=== PATIENT | female | born 1940 | race Caucasian/White ===

== ENCOUNTER → 2016-08-02 | Outpatient (CLI) | payer OTHER, MEDICAID ==
--- NOTE | 2016-08-02 15:24 | MA ---
Bilateral Screening Digital Mammograms With iCAD Clinical Indications: Routine screening mammograms. Technique: Standard digital cephalocaudal and mediolateral oblique projections were obtained. This examination was processed by the iCAD computer-aided detection system. Comparison: 2014, 2016. Breast density: Type C. Findings: Computer-aided detection was reviewed. No suspicious cluster of microcalcifications, new d ominant densities or architectural distortion. Benign secretory calcifications throughout both breast s. No suspicious microcalcifications. Impression: 1. ACR BI-RADS 2: Benign findings. 2. No mammographic evidence of malignancy. Recommendation: 1. If physical exam is negative, recommend annual mammograms with next mammogram July 2017. 2. Dense mammographic pattern limits the sensitivity of mammography in this patient. If there is a cl inically palpable abnormality, recommend additional imaging with ultrasound, if clinically indicated. [facility] will send a result letter to the patient. Negative mammography should not preclude additional workup of a clinically suspicious finding. The patient's information is entered into a reminder system with a target due date for her next mammo gram.
== END ==
LOC: FIMAGING 13:28
DX: Z12.31 Encounter for screening mammogram for malignant neoplasm of breast (principal)
CPT/HCPCS: G0202

== ENCOUNTER 2016-08-24 04:23 | Inpatient (IN) | payer OTHER, MEDICAID ==
--- NOTE | 2016-08-24 04:29 | EDPHY ---
H & P HPI/ROS: HPI CHIEF COMPLAINT: Generalized weakness, nausea, back pain, lightheadedness, muscle aches, joint pain, shortness of breath HISTORY OF PRESENT ILLNESS: The patient very pleasant 76-year-old female she presents emergency room by EMS for multitude of complaints. She tells me over the past 3 days she has been sick. She tells me that she has been feeling shortness of breath for the last 3 days with a nonproductive cough, she has had nausea, generalized weakness, back and neck pain she specifically complains of low back pain as well as high back pain. No trauma. She also complains of joint pain and muscle aches. She states she feels "like a wet noodle" she denies fever, diarrhea or active vomiting. Denies chest pain. Denies pleuritic pain. Past Medical History: Pulmonary hypertension, wears 3 L of oxygen at night, asthma, hypertension, thyroid disease Past Surgical History: Cholecystectomy, bilateral knee surgeries Social History: Denies daily use of drugs alcohol tobacco products Family History: Noncontributory ROS REVIEW OF SYSTEMS: A comprehensive 10 point review of systems is otherwise negative aside from elements mentioned in the history of present illness. Exam Constitutional appears well nontoxic, triage nursing summary reviewed, vital signs reviewed, awake/alert. Eyes normal conjunctivae and sclera, EOMI, PERRLA. HENT normal inspection, atraumatic, moist mucus membranes, no epistaxis, neck supple/ no meningismus, no raccoon eyes. Respiratory clear to auscultation bilaterally, normal breath sounds, no respiratory distress, no wheezing. Cardiovascular rate normal, regular rhythm, no murmur, no edema, distal pulses normal. Gastrointestinal soft, non-tender, no rebound, no guarding, normal bowel sounds, no distension, no pulsatile mass. Genitourinary no CVA tenderness. Musculoskeletal no midline vertebral tenderness, full range of motion, no calf swelling, no tenderness of extremities, no meningismus, good pulses, neurovascularly intact. Left lower extremity: 5 cm laceration that is over 24 hours old. No signs of infection. (from fall >24 hours a go) Skin pink, warm, & dry, no rash, skin atraumatic. Neurologic awake, alert and oriented x 3, AAOx3, moves all 4 extremities equally, motor intact, sensory intact, CN II-XII intact, normal cerebellar, normal vision, normal speech. Psychiatric normal mood/affect. Heme/Lymph/Immune no lymphadenopathy. Differential Diagnosis: Includes but is not limited to in a particular order infection, dehydration, pneumonia, pulmonary hypertension, hypoxia, UTI, electrolyte abnormality, influenza, doubt acute coronary syndrome Medical Decision Making: Patient had an IV established be placed on full case monitor will obtain EKG, chest x-ray blood work including electrolytes, urinalysis and influenza will hydrate her and re-evaluate her. I have also ordered her 4 mg IV morphine for pain of her lower back and upper back as well as 4 mg IV Zofran for nausea. Re-evaluation: EKG interpretation by me on record in [facility] system. Impression time of EKG 4:56 a.m. sinus rhythm rate of 50. No acute ischemic changes appreciated specifically no ST elevation, ST depression significant T-wave abnormalities. CT scan of the angiogram chest with IV contrast. The results of the study are this shows multiple pulmonary embolism subsegmental right lower lobe, right middle lobe and lingula. The study was read by Dr. Garcia I viewed the images myself on the PACS system. 0649: Re-evaluation at this time she is resting comfortably. She is on supplemental oxygen is noted her room air saturation was 86%. CT scan does show multiple pulmonary emboli for this should be admitted I did give her 1 milligram/kilogram of Lovenox subcu. I have updated the patient. This patient is hemodynamically stable no acute distress. Patient's D-dimer noted to be elevated at 5.4. CT scan shows multiple pulmonary emboli. She is hemodynamically stable she is requiring supplemental oxygen she will be admitted to the hospital for pulmonary emboli. [id number]: Spoke with Hospalist service. Dr. Landin Agrees to Admit. Source: Patient, EMS - Personal History Tetanus Vaccine Date: within last 10 years - Medical/Surgical History Hx Asthma: Yes Hx Chronic Respiratory Disease: No Hx Diabetes: No Hx Cardiac Disease: No Hx Renal Disease: No Hx Cirrhosis: No Hx Alcoholism: No Hx HIV/AIDS: No Hx Splenectomy or Spleen Trauma: No Other PMH: pancreatitis, polyarteritis nodosa (IN REMISSION SINCE 2002), HTN, asthma, kidney stones, hysterectomy, cholecystectomy, appendectomy - Social History Smoking Status: Former smoker Constitutional: Initial Vital Signs Temperature (C) 36.5 C 08/24/16 04:25 Heart Rate 56 L 08/24/16 04:25 Respiratory Rate 16 08/24/16 04:25 Blood Pressure 123/59 H 08/24/16 04:25 O2 Sat (%) 86 L 08/24/16 04:25 O2 Delivery Mode Room Air O2 (L/minute) 2 Allergies/Adverse Reactions: bupivacaine HCl [From Marcaine] Allergy (Severe, Verified 08/24/16 04:51) ASTHMA TYPE SYMPTOMS Sulfa (Sulfonamide Antibiotics) Allergy (Severe, Verified 08/24/16 04:51) ASTHMA SYMPTOMS tramadol HCl [From Ultram] Allergy (Severe, Verified 08/24/16 04:51) ASTHMA TYPE SYMPTOMS Penicillins Allergy (Intermediate, Verified 08/24/16 04:51) RASH, ASTHMA TYPE REACTION propoxyphene HCl [From Darvon] Allergy (Intermediate, Verified 08/24/16 04:51) Vomiting Home Medications: Medication Instructions Recorded Gabapentin [Neurontin] 800 mg PO DAILY 06/13/14 Levothyroxine [Synthroid 112 mcg 112 mcg PO DAILY06 06/13/14 (*)] Lisinopril [Zestril 40 mg (*)] 40 mg PO DAILY 06/13/14 Pregabalin [Lyrica] 150 mg PO HS 06/13/14 amLODIPine BESYLATE [Norvasc 5 mg 5 mg PO HS 06/13/14 (*)] Ondansetron Odt [Zofran Odt 4 mg 4 mg PO Q4 PRN #20 tab 06/18/14 (*)] clonIDINE [Catapres (*)] 0.2 mg PO BID #0 tab 06/18/14 QUEtiapine FUMARATE [Seroquel 100 100 mg PO HS 06/20/14 mg (*)] Medical Decision Making - Data Points Laboratory Results: Laboratory Results 08/24/16 04:20 08/24/16 04:20 08/24/16 08/24/16 08/24/16 06:10 05:45 04:20 WBC RBC Hgb Hct MCV MCH MCHC RDW Plt Count MPV Neut % (Auto) Lymph % (Auto) Atlantic % (Auto) Eos % (Auto) Baso % (Auto) Nucleat RBC Rel Count Absolute Neuts (auto) Absolute Lymphs (auto) Absolute Monos (auto) Absolute Eos (auto) Absolute Basos (auto) Absolute Nucleated RBC Immature Gran % Immature Gran # PT INR APTT D-Dimer Sodium 139 mEq/L mEq/L (134-144) Potassium 4.5 mEq/L mEq/L (3.5-5.2) Chloride 103 mEq/L mEq/L (97-110) Carbon Dioxide 26 mEq/l mEq/l (22-31) Anion Gap 10 mEq/L mEq/L (8-16) BUN 20 mg/dL mg/dL (7-23) Creatinine 1.0 mg/dL mg/dL (0.6-1.0) Estimated GFR 54 Glucose 108 mg/dL H mg/dL (70-100) Calcium 9.5 mg/dL mg/dL (8.5-10.4) Magnesium 2.1 mg/dL mg/dL (1.6-2.3) Total Bilirubin 1.2 mg/dL mg/dL (0.1-1.4) Conjugated Bilirubin 0.6 mg/dL H mg/dL (0.0-0.5) Unconjugated Bilirubin 0.6 mg/dL mg/dL (0.0-1.1) AST 31 IU/L IU/L (14-46) ALT 30 IU/L IU/L (9-52) Alkaline Phosphatase 98 IU/L IU/L (38-126) Creatine Kinase 137 IU/L IU/L (0-156) CK-MB (CK-2) Fraction 2.95 ng/mL ng/mL (0-3.19) Troponin I < 0.012 ng/mL ng/mL (0-0.034) NT-Pro-B Natriuret Pep 643 pg/mL H pg/mL (0-450) Total Protein 7.0 g/dL g/dL (6.3-8.2) Albumin 4.0 g/dL g/dL (3.5-5.0) Lipase 26.0 IU/L IU/L (23-300) Urine Color PALE YELLOW Urine Appearance CLEAR Urine pH 5.0 (5.0-7.5) Ur Specific [place] 1.003 (1.002-1.030) Urine Protein NEGATIVE (NEGATIVE) Urine Ketones NEGATIVE (NEGATIVE) Urine Blood NEGATIVE (NEGATIVE) Urine Nitrate NEGATIVE (NEGATIVE) Urine Bilirubin NEGATIVE (NEGATIVE) Urine Urobilinogen NEGATIVE EU EU (0.2-1.0) Ur Leukocyte Esterase NEGATIVE (NEGATIVE) Ur Culture Indicated? NOT INDICATED (NI) Urine Glucose NEGATIVE (NEGATIVE) Influenza Typ A,B (DFA) NEGATIVE FOR FLU (NEGATIVE) 08/24/16 08/24/16 04:20 04:20 WBC 7.45 10^3/uL 10^3/uL (3.80-9.50) RBC 4.47 10^6/uL 10^6/uL (4.18-5.33) Hgb 14.0 g/dL g/dL (12.6-16.3) Hct 41.4 % % (38.0-47.0) MCV 92.6 fL fL (81.5-99.8) MCH 31.3 pg pg (27.9-34.1) MCHC 33.8 g/dL g/dL (32.4-36.7) RDW 12.8 % % (11.5-15.2) Plt Count 184 10^3/uL 10^3/uL (150-400) MPV 11.0 fL fL (8.7-11.7) Neut % (Auto) 59.0 % % (39.3-74.2) Lymph % (Auto) 31.7 % % (15.0-45.0) Atlantic % (Auto) 8.2 % % (4.5-13.0) Eos % (Auto) 0.3 % L % (0.6-7.6) Baso % (Auto) 0.3 % % (0.3-1.7) Nucleat RBC Rel Count 0.0 % % (0.0-0.2) Absolute Neuts (auto) 4.40 10^3/uL 10^3/uL (1.70-6.50) Absolute Lymphs (auto) 2.36 10^3/uL 10^3/uL (1.00-3.00) Absolute Monos (auto) 0.61 10^3/uL 10^3/uL (0.30-0.80) Absolute Eos (auto) 0.02 10^3/uL L 10^3/uL (0.03-0.40) Absolute Basos (auto) 0.02 10^3/uL 10^3/uL (0.02-0.10) Absolute Nucleated RBC 0.00 10^3/uL 10^3/uL (0-0.01) Immature Gran % 0.5 % % (0.0-1.1) Immature Gran # 0.04 10^3/uL 10^3/uL (0.00-0.10) PT 16.1 SEC H SEC (12.0-15.0) INR 1.29 H (0.83-1.16) APTT 40.2 SEC H SEC (23.0-38.0) D-Dimer 5.44 ug/mLFEU H ug/mLFEU (0.00-0.50) Sodium Potassium Chloride Carbon Dioxide Anion Gap BUN Creatinine Estimated GFR Glucose Calcium Magnesium Total Bilirubin Conjugated Bilirubin Unconjugated Bilirubin AST ALT Alkaline Phosphatase Creatine Kinase CK-MB (CK-2) Fraction Troponin I NT-Pro-B Natriuret Pep Total Protein Albumin Lipase Urine Color Urine Appearance Urine pH Ur Specific [place] Urine Protein Urine Ketones Urine Blood Urine Nitrate Urine Bilirubin Urine Urobilinogen Ur Leukocyte Esterase Ur Culture Indicated? Urine Glucose Influenza Typ A,B (DFA) Medications Given: Discontinued Medications Hydromorphone HCl (Dilaudid) 0.5 mg IVP EDNOW ONE Stop: 08/24/16 07:10 Last Admin: 08/24/16 07:10 Dose: 0.5 mg Sodium Chloride (Ns) 1,000 mls @ 0 mls/hr IV ONCE ONE PRN Reason: Wide Open Stop: 08/24/16 04:37 Last Admin: 08/24/16 04:55 Dose: 1,000 mls Morphine Sulfate (Morphine) 4 mg IVP EDNOW ONE Stop: 08/24/16 04:37 Last Admin: 08/24/16 04:56 Dose: 4 mg Ondansetron HCl (Zofran) 4 mg IVP EDNOW ONE Stop: 08/24/16 04:37 Last Admin: 08/24/16 04:55 Dose: 4 mg Tetracaine/Epinephrine/Lidocaine (Lets Soln Topical) 1 ea TP EDNOW ONE Stop: 08/24/16 05:16 Last Admin: 08/24/16 05:24 Dose: 1 ea Departure - Departure Disposition: [facility] Clinical Impression: Hypoxia Pulmonary emboli Qualifiers: Pulmonary embolism type: other Chronicity: acute Acute cor pulmonale presence: without acute cor pulmonale Qualified Code(s): I26.99 - Other pulmonary embolism without acute cor pulmonale Condition: Fair Referrals: Garett Watkins MD [Medical Doctor] - As per Instructions
[2016-08-24] MEDS ORDERED: NS 1,000 ML IV ONE (04:36)
[2016-08-24] MEDS ORDERED: ONDANSETRON 4 MG/2 ML VIAL IVP ONE (04:36)
[2016-08-24 04:48] LABS: % IMMATURE GRANULYOCYTES 0.5 % (0.0-1.1); ABSOLUTE IMMATURE GRANULOCYTES 0.04 10^3/uL (0.00-0.10); ADD DIFF? NO; ADD MORPH? NO; ADD SCAN? NO; ATYPICAL LYMPHOCYTE FLAG 0 (0-99); FRAGMENT RBC FLAG 0 (0-99); HEMATOCRIT 41.4 % (38.0-47.0); LEFT SHIFT FLG 0 (0-99); LIPEMIA HEMOLYSIS FLAG 90 (0-99); MEAN CELL HEMOGLOBIN 31.3 pg (27.9-34.1); MEAN CELL HEMOGLOBIN CONCENTR. 33.8 g/dL (32.4-36.7); MEAN CELL VOLUME 92.6 fL (81.5-99.8); PLATELET CLUMPS FLAG 0 (0-99); PLATELET COUNT 184 10^3/uL (150-400); RED BLOOD CELL COUNT 4.47 10^6/uL (4.18-5.33); RED CELL DISTRIBUTION WIDTH 12.8 % (11.5-15.2)
[2016-08-24 04:51] LABS: ALANINE AMINOTRANSFERASE 30 IU/L (9-52); ALKALINE PHOSPHATASE 98 IU/L (38-126); ANION GAP 10 mEq/L (8-16); ASPARTATE AMINOTRANSFERASE 31 IU/L (14-46); BILIRUBIN,TOTAL 1.2 mg/dL (0.1-1.4); BILIRUBIN-CONJUGATED 0.6 mg/dL (0.0-0.5); BILIRUBIN-UNCONJUGATED 0.6 mg/dL (0.0-1.1); CALCIUM 9.5 mg/dL (8.5-10.4); CARBON DIOXIDE 26 mEq/l (22-31); CHLORIDE 103 mEq/L (97-110); GLOMERULAR FILTRATION RATE 54; GLUCOSE 108 mg/dL (70-100); MAGNESIUM 2.1 mg/dL (1.6-2.3); POTASSIUM 4.5 mEq/L (3.5-5.2); SODIUM 139 mEq/L (134-144)
--- NOTE | 2016-08-24 04:58 | CPEKG ---
Heart Rate: 50 RR Interval: 1200 P-R Interval: 168 QRSD Interval: 86 QT Interval: 448 QTC Interval: 409 P Macon: 16 QRS Macon: -7 T Wave Macon: 13 EKG Severity - NORMAL ECG - EKG Impression: SINUS RHYTHM Electronically Signed By: Fortino Addison 25-Aug-2016 12:15:55
[2016-08-24 05:03] LABS: CREATINE KINASE-MB FRACTION 2.95 ng/mL (0-3.19); TROPONIN I < 0.012 ng/mL (0-0.034)
[2016-08-24 05:06] LABS: INR 1.29 (0.83-1.16); PROTIME(PATIENT) 16.1 SEC (12.0-15.0)
[2016-08-24 05:07] LABS: APTT 40.2 SEC (23.0-38.0)
[2016-08-24] MEDS ORDERED: LETS SOLN TOPICAL 1 EA SYR TP ONE ×2 (05:07→05:15)
[2016-08-24] MEDS ORDERED: IOPAMIDOL (ISOVUE-370) 150 ML BTL IV ONE (06:11)
[2016-08-24 06:14] LABS: COLOR PALE YELLOW; LEUKOCYTE ESTERASE,URINE NEGATIVE (NEGATIVE); NITRITE,URINE NEGATIVE (NEGATIVE)
[2016-08-24] MEDS ORDERED: ENOXAPARIN 80 MG/0.8 ML SYR SC ONE ×2 (06:48→07:30)
[2016-08-24] MEDS ORDERED: HYDROmorphONE/DILAUDID 1 MG/ML SYR ONE (07:04)
[2016-08-24] MEDS ORDERED: HYDROmorphONE/DILAUDID 1 MG/ML SYR IVP ONE (07:09)
[2016-08-24] MEDS ORDERED: LACTULOSE 20 GM/30 ML UDCUP PO PRN (07:55)
[2016-08-24] MEDS ORDERED: POLYETHYLENE GLYCOL 3350 17 GM PKT PO PRN (07:55)
[2016-08-24] MEDS ORDERED: ONDANSETRON 4 MG/2 ML VIAL IVP PRN (07:55)
[2016-08-24] MEDS ORDERED: MAGNESIUM HYDROXIDE 30 ML UDCUP PO PRN (07:55)
[2016-08-24] MEDS ORDERED: BISACODYL 10 MG SUPP PR PRN (07:55)
[2016-08-24] MEDS ORDERED: oxyCODONE IR 5 MG TAB ONE (08:27)
[2016-08-24] MEDS: oxyCODONE IR 5 MG TAB PO PRN ×3 (08:29→21:28)
--- NOTE | 2016-08-24 08:46 | GHP ---
[f rep st] HISTORY AND PHYSICAL DATE OF ADMISSION: 08/24/2016 CHIEF COMPLAINT: Shortness of breath in the setting of neck and low back pain. HPI: This is a 76-year-old female, who presented to the emergency department with shortness of capri th. The patient states her shortness of breath started about 3 days ago. She denies any chest pain . She has been having what she describes as worsening pain in her low neck and low back. She denies any new numbness or weakness in her arms or legs. She has felt very dizzy. She had some nausea an d 1 episode of emesis yesterday. She denies any recent prolonged travel. She has no history or no family history of blood clots. Over the past month the patient states that she has lost 8 pounds loss. She says that she has no ap petite. When she tries to the eat, she feels like food gets stuck. She has had some chills. The patient tells me that she has had some shortness of breath over the past few weeks, but it has r eally worsened over the past few days. She was seen at [facility], where she was preliminarily diagnosed with pulmonary hypertension. She was scheduled to follow up with them for echocardiogram and further testing, which she has not done since she has felt too sick to proceed with further anny ting. PAST MEDICAL HISTORY: 1. Fibromyalgia. 2. Hypothyroidism. 3. Hypertension. 4. GERD status post Angelica fundoplication. 5. Obesity. 6. Osteoarthritis. 7. Peripheral neuropathy. 8. History of polyarteritis nodosa, manifesting hepatic artery aneurysm in 1993. 9. Obstructive sleep apnea. 10. Anxiety. 11. Hospitalization in June of 2014, for possible pancreatitis versus pancreatic duct stricture s status post EUS by Dr. Abdul. PAST SURGICAL HISTORY: Cholecystectomy, right knee replacement, hysterectomy, carpal tunnel release , cataract surgery, right hip replacement, small-bowel obstruction, Angelica fundoplication, and endos copic ultrasound with biopsy. HOME MEDICATIONS: Reviewed. Refer to [employer] for details. ALLERGIES: Reviewed. Refer to [employer] for details. SOCIAL HISTORY: The patient lives at [facility]. She is a former smoker but qu it many years ago. She denies any alcohol or illicit drug use. FAMILY HISTORY: Reviewed and noncontributory. REVIEW OF SYSTEMS: Comprehensive 10-point review of systems was done and is negative except for as mentioned in the HPI. PHYSICAL EXAM: VITAL SIGNS: Blood pressure 144/74, pulse 56, respiratory rate 18, O2 saturation 95 % on room air. GENERAL: No acute distress. HEART: S1, S2. LUNGS: Clear. ABDOMEN: Soft. Nont jimmy, nondistended. No guarding or rebound tenderness. No hepatosplenomegaly. EXTREMITIES: No c lubbing or cyanosis. NEURO: Face is symmetric. Cranial nerves 2-12 grossly intact. 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 Muscle strength 5/5 bilateral flexio n, extension at the hip and at the foot. SKIN: Clear. No rashes. HEAD: Normocephalic, atraumati c. EYES: PERRLA. Sclerae anicteric. MOUTH: Moist mucous membranes. NECK: Supple. No lymphade nopathy. DIAGNOSTIC DATA: WBC 7.4, hemoglobin 14, hematocrit 41.4, platelets 184. D-dimer is 5.44. INR 1.2 9, PT 16.1, PTT 40.2. Sodium 139, potassium 4.5, chloride 103, CO2 26, BUN 20, creatinine 1, glucos e 108. LFTs unremarkable. BNP 643. UA unremarkable. Influenza A and B negative. CT angio of the chest, which I visualized and personally interpreted, shows multiple pulmonary embol ism, subsegmental right lower lobe and right middle lobe and lingula. Final read is pending. EKG shows sinus rhythm, rate 50 beats per minute, no acute ischemic changes. ASSESSMENT: This is a 76-year-old female presenting with multiple complaints including shortness of breath, neck and low back pain, as well as dizziness found to have: 1. Acute pulmonary embolism with multiple subsegmental right lower lobe clots as well as right midd le lobe and lingula clots. Plan: The patient will be admitted to the hospital where she will be st arted on therapeutic treatment with low molecular weight heparin. We will defer starting oral antic oagulant at this time pending further workup. See below. At this time, the precipitating factor fo r the PE is unknown. I do have a high suspicion for malignancy. 2. 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 Plan: I discussed case Dr. Ramakrishna Barr from [facility]. He will see the patient in consultation and advised on further workup. 3. History of fibromyalgia with acute on chronic neck and low back pain. Plan: The patient will be continued on her usual doses of oxycodone. If her pain worsens, would consider further imaging to evaluate for other causes of her pain. 4. History of hypertension. Plan: Continue home medications. The patient requests to be full code status. /[id number]/MODL
[2016-08-24] MEDS: SENNOSIDES/DOCUSATE SODIUM TAB PO SCH ×2 (09:54→19:53)
[2016-08-24] MEDS ORDERED: NON-FORMULARY NEW DRUG (Zolpidem Tartrate [Ambien 10 Mg] 10 MG) PO PRN (10:32)
[2016-08-24] MEDS ORDERED: oxyCODONE IR 5 MG TAB PO PRN (10:34)
[2016-08-24] MEDS ORDERED: ZOLPIDEM TARTRATE 5 MG TAB PO PRN (10:39)
--- NOTE | 2016-08-24 10:46 | GCON ---
[f rep st] CONSULTATION REFERRING PHYSICIAN: Ted Landin DO REASON FOR CONSULTATION: Dysphagia. CHIEF COMPLAINT: Fatigue and shortness of breath. HISTORY OF PRESENT ILLNESS: Briefly, the patient is a 76-year-old female who was admitted to the [facility] on 08/24/2016 for the evaluation of shortness of breath, chest pain, back pain, and neck pain . She reports she was in her usual state of health until a few days ago. She began having worsenin g fatigue associated with pain symptoms in the lower neck and back. She describes numbness and ting ling as well. She felt dizzy. She had some nausea and 1 episode of nonbloody emesis. As her sympt oms were gradually worsening, she presented to the emergency room for evaluation. In the emergency room, evaluation revealed a pulmonary embolism, and she has been admitted for the management of her newly diagnosed pulmonary clots. She reports that over the last month she believes she has lost approximately 8 pounds. She has a de creased appetite. In addition, she reports that while she is eating, she will have difficulty with solid food dysphagia. She has had this symptom on and off for a number of years. She has undergone 2 prior upper endoscopies over approximately the last 24-26 months. One was done for the symptom o f dysphagia, the other was done in conjunction with an endoscopic ultrasound to evaluate for pancrea titis. She has had biopsy of the esophagus as well as the GE junction and empiric dilation of the e sophagus. She is uncertain if the dilation was of any benefit. She has not had any sinister etiolo gy discovered for dysphagia on her biopsy results. She reports that if she chews her food well, eat s slowly, she will have reasonable success with swallowing. She is not certain that her decreased p .o. intake is why she is losing weight. She reports she has generally had the decreased appetite ov erall. She also reports she has been undergoing a workup from [facility] ([place], [place]) for a diagnosis of pulmonary hypertension and as yet to complete that workup. PAST MEDICAL HISTORY: Includes fibromyalgia, hypothyroidism, hypertension, heartburn, status post N issen fundoplication, obesity, osteoarthritis, peripheral neuropathy, obstructive sleep apnea, anxie ty, and a prior history of pancreatitis, status post EUS. ALLERGIES: Include bupivacaine, sulfa, tramadol, penicillin, and propoxyphene. CURRENT MEDICINES: Tylenol, bisacodyl, Lovenox, lactulose, milk of magnesia, Zofran, oxycodone, Geoff aLAX, and Senokot. HOME MEDICINES: Include oxycodone, Norvasc, Zantac, Ambien, meloxicam, Seroquel, Lyrica, Catapres, Zofran, Zestril, Synthroid, and Neurontin. SOCIAL HISTORY: She lives at [facility]. She is a former smoker but quit many years ago. She denies any drug use or alcohol use. FAMILY HISTORY: Negative for colon cancer or colon polyps. REVIEW OF SYSTEMS: A comprehensive 10-point review was undertaken with the patient and is negative, except for those details described in the history of present illness. The history of present illne ss contains the pertinent positives and negatives related to her review of systems. PHYSICAL EXAMINATION: GENERAL: This is an obese, well-developed female, in no apparent distress. HEENT: Pupils are equal, round, and reactive to light and accommodation. Sclerae are nonicteric. Oropharynx is clear. NECK: Supple without lymphadenopathy. HEART: Regular without murmur. ABDOM EN: Soft, nontender. Normoactive bowel sounds. There is no rebound or guarding. EXTREMITIES: No clubbing or cyanosis. NEURO: Grossly nonfocal. PSYCH: Stable mood and affect. SKIN: Warm and dry without lesions. LABORATORY TESTING: Reveals a white count of 7.45, hemoglobin of 14, hematocrit of 41.4, platelet c ount of 184. INR of 1.29. Sodium of 139, potassium of 4.5, chloride of 103, bicarb of 26, BUN of 2 0, creatinine of 1.0. CTA of the chest and thorax reveals mild volume subsegmental pulmonary emboli involving the right mi ddle lobe, right lower lobe, and lingula. There is also narrowing of the pulmonary outflow tract wi th aneurysmal dilation of the pulmonary trunk. In April 2016, I note she also underwent CT angiog estrella with no pulmonary emboli identified. In December 2015, she had CAT scan of the abdomen and pelvis to evaluate abdominal symptoms; no kidney stones were identified. In 2014, pathology sampling done of the upper intestinal tract was negative. In 2013, pathology sampling of the GE junction and eso phagus was also negative. IMPRESSION AND RECOMMENDATIONS: The patient is admitted to the hospital for management of pulmonary embolism. She describes some increasing solid food dysphagia over the last many months. She has h ad chronic solid food dysphagia and has undergone some prior workup, most recently in early 2014. M y suspicion for sinister etiology for dysphagia, such as malignancy is low, based on her recent uppe r endoscopic evaluations. She may have a motility disturbance or a chronic partial obstruction rela trevor to her fundoplication. At this time, I recommend she undergo a barium swallow to evaluate for e tiologies of dysphagia. This noninvasive exam will be safer in the setting of her obesity, pulmonar y hypertension, pulmonary outflow tract obstruction, and recently diagnosed pulmonary embolism. I d o not think that the risks of sedation and upper endoscopy in the setting of her acute presentation are warranted, given her prior GI workup. Barium esophagram will be safer and useful to rule out th e most sinister etiologies. Ultimately, we can arrange follow up in GI clinic to re-evaluate her dy sphagia symptoms. Meanwhile, the patient should remain on a proton pump inhibitor. Pending the res ults of her upper gastrointestinal series, will consider diet advancement. /[id number]/MODL
[2016-08-24] MEDS: LISINOPRIL 40 MG TAB PO SCH (13:53)
[2016-08-24] MEDS: amLODIPine BESYLATE 5 MG TAB PO SCH (19:53)
[2016-08-24] MEDS: FAMOTIDINE 20 MG TAB PO SCH (19:53)
[2016-08-24] MEDS: PREGABALIN 100 MG CAP PO SCH (19:53)
[2016-08-24] MEDS: QUEtiapine FUMARATE 100 MG TAB PO SCH (19:54)
[2016-08-24] MEDS: ENOXAPARIN 80 MG/0.8 ML SYR SC SCH (19:54)
[2016-08-24] MEDS ORDERED: NON-FORMULARY NEW DRUG (Meloxicam [Mobic 7.5 Mg] 7.5 MG) PO SCH (21:00)
[2016-08-24] MEDS ORDERED: NON-FORMULARY NEW DRUG (Pregabalin [Lyrica] 200 MG) PO SCH (21:00)
[2016-08-24] MEDS ORDERED: MELOXICAM 7.5 MG PO SCH (21:00)
[2016-08-24] MEDS ORDERED: NON-FORMULARY NEW DRUG (Ranitidine Hcl [Zantac] 150 MG) PO SCH (21:00)
[2016-08-25 05:10] LABS: % IMMATURE GRANULYOCYTES 0.5 % (0.0-1.1); ABSOLUTE IMMATURE GRANULOCYTES 0.03 10^3/uL (0.00-0.10); ADD DIFF? NO; ADD MORPH? NO; ADD SCAN? NO; ATYPICAL LYMPHOCYTE FLAG 0 (0-99); FRAGMENT RBC FLAG 0 (0-99); HEMATOCRIT 39.6 % (38.0-47.0); HEMOGLOBIN 13.4 g/dL (12.6-16.3); LEFT SHIFT FLG 0 (0-99); LIPEMIA HEMOLYSIS FLAG 90 (0-99); MEAN CELL HEMOGLOBIN 32.3 pg (27.9-34.1); MEAN CELL HEMOGLOBIN CONCENTR. 33.8 g/dL (32.4-36.7); MEAN CELL VOLUME 95.4 fL (81.5-99.8); MEAN PLATELET VOLUME 11.6 fL (8.7-11.7); PLATELET CLUMPS FLAG 0 (0-99); PLATELET COUNT 160 10^3/uL (150-400); RED BLOOD CELL COUNT 4.15 10^6/uL (4.18-5.33); RED CELL DISTRIBUTION WIDTH 12.8 % (11.5-15.2)
[2016-08-25 05:24] LABS: ANION GAP 6 mEq/L (8-16); CALCIUM 8.7 mg/dL (8.5-10.4); CARBON DIOXIDE 26 mEq/l (22-31); CHLORIDE 107 mEq/L (97-110); CREATININE 0.8 mg/dL (0.6-1.0); GLOMERULAR FILTRATION RATE > 60; GLUCOSE 82 mg/dL (70-100); POTASSIUM 4.6 mEq/L (3.5-5.2); SODIUM 139 mEq/L (134-144)
[2016-08-25] MEDS: LEVOTHYROXINE 112 MCG TAB PO SCH (06:17)
[2016-08-25] MEDS: oxyCODONE IR 5 MG TAB PO PRN ×4 (06:20→20:34)
[2016-08-25] MEDS ORDERED: NON-FORMULARY NEW DRUG (Gabapentin [Neurontin] 800 MG) PO SCH (09:00)
[2016-08-25] MEDS: FAMOTIDINE 20 MG TAB PO SCH ×2 (09:55→20:21)
[2016-08-25] MEDS: GABAPENTIN 400 MG CAP PO SCH (09:55)
[2016-08-25] MEDS: LISINOPRIL 40 MG TAB PO SCH (09:55)
[2016-08-25] MEDS: SENNOSIDES/DOCUSATE SODIUM TAB PO SCH (09:58)
--- NOTE | 2016-08-25 09:58 | SOAPPROG ---
SOAP Progress Note Assessment/Plan: Assessment: 1. dysphagia - pt not interested in dysphagia w/u at this time - she was able to tolerate regular dinner last evening - she has had 2 EGDs in last ~24months, so work-up is not urgent as likelihood of malignancy/infection/etc is low Plan: 1. dysphagia - will defer w/u to outpt - ok to advance diet - recommend PPI QD, if not already doing so - will sign off, call with questions 08/25/16 09:55 Subjective: CC: upset about barium swallow. she does not want to have to stand up for the exam or drink the barium S: tolerated dinner last night with minimal or no dysphagia no chest pain no sob no cough no vomiting no nausea Objective: Vital Signs Temp Pulse Resp BP Pulse Ox 36.5 C 51 L 17 95/56 L 95 08/25/16 08:00 08/25/16 08:00 08/25/16 08:00 08/25/16 08:00 08/25/16 08:00 Laboratory Results 08/25/16 03:36 08/25/16 03:36 08/24/16 08/25/16 08/26/16 05:59 05:59 05:59 Intake Total 1400 Balance 1400 PT 16.1 SEC (12.0-15.0) H 08/24/16 04:20 INR 1.29 (0.83-1.16) H 08/24/16 04:20 Physical Exam - Physical Exam General Appearance: WD/WN, alert EENT: PERRL/EOMI Neck: full range of motion Respiratory: chest non-tender Cardiac/Chest: normal peripheral pulses Abdomen: normal bowel sounds Skin: normal color Extremities: normal range of motion ICD10 Worksheet Patient Problems: Problems Problem Status Onset Hypoxia Acute Pulmonary emboli Acute Pancreatitis Acute
[2016-08-25] MEDS: ENOXAPARIN 80 MG/0.8 ML SYR SC SCH ×2 (09:59→20:21)
[2016-08-25] MEDS ORDERED: NS 500 ML IV ONE (12:21)
[2016-08-25] MEDS ORDERED: NS 1,000 ML IV SCH (12:30)
--- NOTE | 2016-08-25 13:43 | ECHO ---
[id number] + + [address] : : [place] [address] : : [phone] + + Adult Echocardiographic Report + -------+ :Name: SCOTT BRIAN LStudy Date: 08/25/2016 12:07 PM : : Hospital Admission Number: [id number] Locati on: 202: :: 1940 Gender: Female Height: 64 in : :Age: 76 yrs Race: WH Weight: 184 lb : :Reason For Study: Eval Pulmonic Valve and right heart : : BSA: 1.9 meter s2 : :History: Multiple pulmonary embolisms. Pumonary Stenosis by CT : + -------+ MMode/2D Measurements \T\ Calculations IVSd: 0.98 cm LVIDd: 4.6 cm FS: 34.1 % Ao root diam: 2.5 cm LVPWd: 0.98 cm LVIDs: 3.0 cm EDV(Teich): 97.7 ml LA dimension: 1.7 cm ESV(Teich): 36.1 ml EF(Teich): 63.0 % LVOT diam: 1.8 cm LVOT area: 2.5 cm2 Normal Measurement Values: + + :LVIDd (3.5-5.7cm) IVSd (0.6-1.1cm) LVPWd (0.6-1.1cm) Aortic Root (2.0-3.7cm)Left Atrium (1.5-4.0cm): :LV Vol(d) (76-115ml) LV Vol(s) (29-48ml) Ejec Fraction (50-65%)PV Jefferson (0.6- 1.2m/s) TV Jefferson (0.4-1.0m/s) : :MV E Jefferson (0.8-1.0m/s)MV A Jefferson (0.3-1.0m/s)LVOT Jefferson (0.7-1.2m/s) Asc Ao Jefferson ( 0.9-1.8m/s) : + + Doppler Measurements \T\ Calculations MV E max jefferson: MV V2 max: Ao mean PG: AI max jefferson: 55.3 cm/sec 86.9 cm/sec 5.3 mmHg 399.7 cm/sec MV A max jefferson: MV max PG: Ao V2 mean: AI max P.9 cm/sec 3.0 mmHg 108.4 cm/sec 63.9 mmHg MV E/A: 0.65 MV V2 mean: Ao V2 VTI: 40.1 cm 54.9 cm/sec MV mean PG: CARMELO(I,D): 1.6 cm2 1.4 mmHg MV V2 VTI: 21.6 cm MVA(VTI): 3.0 cm2 LV V1 mean PG: SV(LVOT): 65.6 ml PA V2 max: TR max jefferson: 2.2 mmHg 103.2 cm/sec 300.0 cm/sec LV V1 mean: PA max P.3 mmHgTR max P.8 cm/sec 36.0 mmHg LV V1 VTI: 25.8 cm RAP systole: 10.0 mmHg RVSP(TR): 46.0 mmHg Left Ventricle The left ventricle is normal in size. There is mild concentric left ventricular hypertrophy. The left ventricular ejection fraction is normal. There is Doppler evidence for diastolic dysfunction. Ejection Fraction = 64%. The left ventricular wall motion is normal. Right Ventricle The right ventricle is normal size. Atria The left atrium is mildly dilated. Right atrial size is normal. Mitral Valve The mitral valve is normal in structure and function. There is no evidence of mitral valve prolapse. There is no mitral valve stenosis. There is trace mitral regurgitation. Tricuspid Valve Normal tricuspid valve. There is mild tricuspid regurgitation. Right ventricular systolic pressure is 46mmHg. There is Doppler evidence for mild to moderate pulmonary hypertension. Aortic Valve The aortic valve opens well. There is no aortic stenosis. Moderate aortic regurgitation. Pulmonic Valve The pulmonic artery, left and right pulmonic artery doppler signals appear blunted. The pulmonic artery posterior to the pulmonic valve measure 3.1cm to 3.4cm. Great Vessels The aortic root is normal size. Pericardium/Pleural There is no pericardial effusion. There is a fat pad seen. Conclusion A complete two-dimensional transthoracic echocardiogram was performed (2D, M-mode, Doppler and color flow Doppler). There is mild concentric left ventricular hypertrophy. The left ventricular ejection fraction is normal. There is Doppler evidence for diastolic dysfunction. Ejection Fraction = 64%. The left ventricular wall motion is normal. The right ventricle is normal size. The left atrium is mildly dilated. The mitral valve is normal in structure and function. There is trace mitral regurgitation. There is mild tricuspid regurgitation. Right ventricular systolic pressure is 46mmHg. There is Doppler evidence for mild to moderate pulmonary hypertension. The aortic valve opens well. Moderate aortic regurgitation. The pulmonic artery, left and right pulmonic artery doppler signals appear blunted. The pulmonic artery posterior to the pulmonic valve measure 3.1cm to 3.4cm. There is no pericardial effusion. There is a fat pad seen. Final Reading Physician: Rob Posada signed on 08/25/2016 01:42 PM Ordering Physician: Virginia Patiño Performed By: Avila Arzate RDCS
--- NOTE | 2016-08-25 15:52 | HOSPPROG ---
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 vasculitis as cause of adult onset pulmonary stenosis -check ESR/CRP * Dysphagia -multiple previous negative EGD -barium esophagram refused -start PPI * HTN - home meds Subjective: Feels bad, dizzy, not ready for home. Objective: Vital Signs Temp Pulse Resp BP Pulse Ox 36.4 C 52 L 17 100/50 L 96 08/25/16 12:00 08/25/16 12:00 08/25/16 12:00 08/25/16 14:28 08/25/16 12:00 Laboratory Results 08/25/16 03:36 08/25/16 03:36 08/24/16 08/25/16 08/26/16 05:59 05:59 05:59 Intake Total 1400 Balance 1400 PT 16.1 SEC (12.0-15.0) H 08/24/16 04:20 INR 1.29 (0.83-1.16) H 08/24/16 04:20 CT chest: extensive PE, pulmonic stenosis - Physical Exam Constitutional: no apparent distress, appears nourished, not in pain Cardiovascular: regular rate and rhythym, no murmur, rub, or gallop Respiratory: no respiratory distress, no rales or rhonchi, clear to auscultation Gastrointestinal: normoactive bowel sounds, soft, non-tender abdomen, no palpable masses Skin: no rashes or abrasions, no fluctuance, no induration Neurologic: AAOx3, sensation intact bilaterally Psychiatric: interacting appropriately, not anxious, not encephalopathic, thought process linear ICD10 Worksheet Patient Problems: Problems Problem Status Onset Hypoxia Acute Pulmonary emboli Acute Pancreatitis Acute
[2016-08-25] MEDS ORDERED: MELOXICAM 7.5 MG PO PRN (16:13)
[2016-08-25] MEDS: WARFARIN SODIUM 5 MG TAB PO SCH (16:14)
[2016-08-25] MEDS: PANTOPRAZOLE SODIUM 40 MG TAB PO SCH (16:15)
[2016-08-25] MEDS: amLODIPine BESYLATE 5 MG TAB PO SCH (20:20)
[2016-08-25] MEDS: PREGABALIN 100 MG CAP PO SCH (20:20)
[2016-08-25] MEDS: QUEtiapine FUMARATE 100 MG TAB PO SCH (20:21)
[2016-08-25] MEDS: ACETAMINOPHEN 325 MG TAB PO PRN (20:34)
[2016-08-26] MEDS: oxyCODONE IR 5 MG TAB PO PRN ×3 (02:37→20:24)
[2016-08-26 05:47] LABS: INR 1.19 (0.83-1.16); PROTIME(PATIENT) 15.1 SEC (12.0-15.0)
[2016-08-26] MEDS: LEVOTHYROXINE 112 MCG TAB PO SCH (07:06)
[2016-08-26] MEDS: ENOXAPARIN 80 MG/0.8 ML SYR SC SCH ×2 (08:31→20:20)
[2016-08-26] MEDS: PANTOPRAZOLE SODIUM 40 MG TAB PO SCH (08:34)
[2016-08-26] MEDS: FAMOTIDINE 20 MG TAB PO SCH ×2 (08:34→20:21)
[2016-08-26] MEDS: GABAPENTIN 400 MG CAP PO SCH (08:34)
[2016-08-26] MEDS: LISINOPRIL 40 MG TAB PO SCH (08:34)
--- NOTE | 2016-08-26 10:49 | GCON ---
CARDIOLOGY CONSULTATION DATE OF CONSULTATION: 08/26/2016 REFERRING PHYSICIAN: Virginia Patiño MD REASON FOR CONSULTATION: Possible pulmonic stenosis. HISTORY: The patient is a 76-year-old woman who presented to the emergency room with shortness of b reath. This has been significantly increasing over the past several weeks. A CT pulmonary angiogra m was performed in the emergency room and demonstrated mild volume pulmonary emboli in the right briseida g. Also noted was narrowing of the pulmonary outflow tract with dilatation of the main pulmonary art nancy. This potentially suggested pulmonic stenosis or subpulmonic stenosis. An echocardiogram and c ardiology consultation were requested. Her echocardiogram demonstrates no pulmonic valvular stenosi s. There does appear to be some muscular hypertrophy of the subpulmonic region. There was no signi ficant gradient through the pulmonary outflow tract or across the pulmonic valve. The main pulmonar y trunk was mildly dilated at 3.1 cm on echocardiography. Interestingly, the patient had sought evaluation for her dyspnea at [facility] last mo nth. A high-resolution CT scan was performed, which demonstrated a dilated main pulmonary trunk at 4 cm, suggesting pulmonary hypertension. Earlier this month, she had a pulmonary hypertension consu ltation at [facility]. They had planned to perform echocardiography and have a followup visit. She reports that as recently as several months ago, she had been able to be much more active, walk ing her dog and gardening. 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 She has a limited smoking history while she was in college. She does have a diagnosis of mild asth ma but rarely needs to use her inhaler. She does have sleep apnea, for which she uses nocturnal oxy gen. PAST MEDICAL HISTORY: As mentioned, asthma. She has osteoarthritis, acid reflux, hypertension, hyp othyroidism, PVCs, polyarteritis nodosum, restless legs syndrome, Sjogren syndrome, nephrolithiasis, and pancreatitis. PAST SURGICAL HISTORY: Includes a Angelica fundoplication, cholecystectomy, lysis of adhesions for pa rtial small-bowel obstruction, bilateral total knee replacements, and right hip replacement. MEDICATIONS: Relevant cardiac medications consist of amlodipine 5 mg at bedtime, clonidine 0.2 mg t wice daily, and lisinopril 40 mg daily. ALLERGIES: She has several allergies, which are outlined in the electronic record. SOCIAL HISTORY: She is single. She has no offspring. She is originally from [place] but came to [facility] in [place]. She has degrees in journalism, Nigerien, and Welsh. She has traveled extensively. REVIEW OF SYSTEMS: Apart from the dyspnea on exertion that prompted this visit, she has scattered a rthritis pains, but a 10-point review was otherwise negative. PHYSICAL EXAMINATION: VITAL SIGNS: Heart rate in the 50s with sinus rhythm on the monitor, blood p ressure 152/68. GENERAL: Well-developed, well-nourished woman, in no acute distress. She is alert and oriented x3. HEAD AND NECK: No scleral icterus. Mucous membranes moist. Carotid pulses 2+, without bruits. There is no JVD. CHEST: Lung solorio clear to auscultation. CARDIAC: Regular rat e and rhythm, with a normal S1 and S2. There is no murmur or gallop. ABDOMEN: Soft, nondistended, nontender, with normal bowel sounds. EXTREMITIES: 2+ pulses and no peripheral edema. ECG: Her ECG demonstrates normal sinus rhythm. There are no Q-waves or conduction system disturban chaitanya. No ischemic changes. No changes to suggest right ventricular hypertrophy. Echocardiogram: Her echocardiogram demonstrates normal left ventricular size and systolic function. Ejection fraction is 60% to 65%. She has normal wall motion. Her right ventricle is normal in si ze and function. She has trace mitral regurgitation and mild tricuspid regurgitation. Estimated PA systolic pressure is 46 mmHg. Main pulmonary artery is 3.1-3.4 cm. IMPRESSION: This is a 76-year-old woman who is currently admitted for pulmonary emboli. This may e xplain her symptoms of shortness of breath. Dilation of her main pulmonary trunk was noted on CT sc an, along with a suggestion of narrowing of the right ventricular outflow tract. This appearance is consistent with her echocardiogram as well. However, it is not producing any hemodynamically signi ficant subpulmonary stenosis. No further workup is indicated at this time. She has mild pulmonary hypertension. Given the fact that she has mild asthma, a history of sleep apnea, and a current diag nosis of pulmonary embolism, it is surprising that her pulmonary pressure is not higher. PLAN: As mentioned above, no additional workup indicated at this time. We will plan to see her as an outpatient and repeat echocardiography after she finishes her course of systemic anticoagulation for her pulmonary embolism. /[id number]/MODL
[2016-08-26] MEDS: WARFARIN SODIUM 5 MG TAB PO SCH (15:44)
--- NOTE | 2016-08-26 15:59 | HOSPPROG ---
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 Getting better daily though. Not ready to go home. Objective: Vital Signs Temp Pulse Resp BP Pulse Ox 36.7 C 47 L 17 127/63 H 99 08/26/16 12:00 08/26/16 12:00 08/26/16 12:00 08/26/16 12:00 08/26/16 12:00 Laboratory Results 08/26/16 03:41 08/25/16 03:36 08/25/16 08/26/16 08/27/16 05:59 05:59 05:59 Intake Total 1400 2700 Balance 1400 2700 PT 15.1 SEC (12.0-15.0) H 08/26/16 03:41 INR 1.19 (0.83-1.16) H 08/26/16 03:41 - Physical Exam Constitutional: no apparent distress, appears nourished, not in pain Cardiovascular: regular rate and rhythym, no murmur, rub, or gallop Respiratory: no respiratory distress, no rales or rhonchi, clear to auscultation Gastrointestinal: normoactive bowel sounds, soft, non-tender abdomen, no palpable masses Skin: no rashes or abrasions, no fluctuance, no induration Neurologic: AAOx3, sensation intact bilaterally Psychiatric: interacting appropriately, not anxious, not encephalopathic, thought process linear ICD10 Worksheet Patient Problems: Problems Problem Status Onset Hypoxia Acute Pulmonary emboli Acute Pancreatitis Acute
[2016-08-26] MEDS: amLODIPine BESYLATE 5 MG TAB PO SCH (20:20)
[2016-08-26] MEDS: QUEtiapine FUMARATE 100 MG TAB PO SCH (20:21)
[2016-08-26] MEDS: PREGABALIN 100 MG CAP PO SCH (20:24)
[2016-08-27] MEDS: oxyCODONE IR 5 MG TAB PO PRN ×3 (04:18→21:29)
[2016-08-27] MEDS: LEVOTHYROXINE 112 MCG TAB PO SCH (04:18)
[2016-08-27 05:48] LABS: INR 1.18 (0.83-1.16)
[2016-08-27] MEDS: ACETAMINOPHEN 325 MG TAB PO PRN ×2 (06:09→21:29)
[2016-08-27] MEDS: GABAPENTIN 400 MG CAP PO SCH (08:54)
[2016-08-27] MEDS: FAMOTIDINE 20 MG TAB PO SCH ×2 (08:54→21:28)
[2016-08-27] MEDS: PANTOPRAZOLE SODIUM 40 MG TAB PO SCH (08:54)
[2016-08-27] MEDS: LISINOPRIL 40 MG TAB PO SCH (08:55)
[2016-08-27] MEDS: ENOXAPARIN 80 MG/0.8 ML SYR SC SCH ×2 (08:57→21:27)
--- NOTE | 2016-08-27 14:57 | HOSPPROG ---
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 Less SOB/dizzy Objective: Vital Signs Temp Pulse Resp BP Pulse Ox 36.2 C 90 23 H 124/65 H 91 L 08/27/16 12:00 08/27/16 12:00 08/27/16 12:00 08/27/16 12:00 08/27/16 12:00 Laboratory Results 08/26/16 03:41 08/25/16 03:36 08/26/16 08/27/16 08/28/16 05:59 05:59 05:59 Intake Total 2700 2180 Balance 2700 2180 PT 15.0 SEC (12.0-15.0) 08/27/16 03:58 INR 1.18 (0.83-1.16) H 08/27/16 03:58 - Physical Exam Constitutional: no apparent distress, appears nourished, not in pain Cardiovascular: regular rate and rhythym, no murmur, rub, or gallop Respiratory: no respiratory distress, no rales or rhonchi, clear to auscultation Gastrointestinal: normoactive bowel sounds, soft, non-tender abdomen, no palpable masses Skin: no rashes or abrasions, no fluctuance, no induration Neurologic: AAOx3, sensation intact bilaterally Psychiatric: interacting appropriately, not anxious, not encephalopathic, thought process linear ICD10 Worksheet Patient Problems: Problems Problem Status Onset Hypoxia Acute Pulmonary emboli Acute Pancreatitis Acute
[2016-08-27] MEDS: WARFARIN SODIUM 5 MG TAB PO SCH (16:40)
[2016-08-27] MEDS: QUEtiapine FUMARATE 100 MG TAB PO SCH (21:28)
[2016-08-27] MEDS: amLODIPine BESYLATE 5 MG TAB PO SCH (21:28)
[2016-08-27] MEDS: PREGABALIN 100 MG CAP PO SCH (21:28)
[2016-08-28] MEDS: oxyCODONE IR 5 MG TAB PO PRN ×3 (01:17→18:07)
[2016-08-28] MEDS: LEVOTHYROXINE 112 MCG TAB PO SCH (03:59)
[2016-08-28 04:46] LABS: INR 1.37 (0.83-1.16); PROTIME(PATIENT) 16.9 SEC (12.0-15.0)
[2016-08-28] MEDS ORDERED: ENOXAPARIN 80 MG/0.8 ML SYR SC ONE (09:49)
[2016-08-28] MEDS ORDERED: CYCLOBENZAPRINE 10 MG TAB PO PRN (09:51)
[2016-08-28] MEDS: GABAPENTIN 400 MG CAP PO SCH (09:55)
[2016-08-28] MEDS: PANTOPRAZOLE SODIUM 40 MG TAB PO SCH (09:55)
[2016-08-28] MEDS: LISINOPRIL 40 MG TAB PO SCH (09:55)
[2016-08-28] MEDS: ENOXAPARIN 80 MG/0.8 ML SYR SC SCH (10:04)
[2016-08-28] MEDS: FAMOTIDINE 20 MG TAB PO SCH (10:04)
--- NOTE | 2016-08-28 15:21 | HOSPPROG ---
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 Still SOB. Severe posterior cervical neck pain with radiation to bilateral shoulders Objective: Vital Signs Temp Pulse Resp BP Pulse Ox 36.3 C 44 L 18 103/54 L 81 L 08/28/16 11:56 08/28/16 11:56 08/28/16 11:56 08/28/16 11:56 08/28/16 13:55 Laboratory Results 08/26/16 03:41 08/25/16 03:36 08/27/16 08/28/16 08/29/16 05:59 05:59 05:59 Intake Total 2180 820 Balance 2180 820 PT 16.9 SEC (12.0-15.0) H 08/28/16 03:56 INR 1.37 (0.83-1.16) H 08/28/16 03:56 CXR personally viewed, my interpretation is: atelectasis, no CHF or infiltrate MRI C-spine - mild DJD, nothing terrible Laboratory Tests 08/28/16 03:56 INR 1.37 H - Physical Exam Constitutional: no apparent distress, appears nourished, not in pain Cardiovascular: regular rate and rhythym, no murmur, rub, or gallop Respiratory: no respiratory distress, no rales or rhonchi, clear to auscultation Gastrointestinal: normoactive bowel sounds, soft, non-tender abdomen, no palpable masses Skin: no rashes or abrasions, no fluctuance, no induration Neurologic: AAOx3, weakness (complete RUE paralysis for 15 year unchanged, etiology never discovered), numbness, CN II-XII Intact Psychiatric: interacting appropriately, not anxious, not encephalopathic, thought process linear ICD10 Worksheet Patient Problems: Problems Problem Status Onset Hypoxia Acute Pulmonary emboli Acute Pancreatitis Acute
[2016-08-28] MEDS ORDERED: MELOXICAM PO SCH (21:00)
[2016-08-28] MEDS: APIXABAN 5 MG TAB PO SCH (22:38)
[2016-08-28] MEDS: QUEtiapine FUMARATE 100 MG TAB PO SCH (22:39)
[2016-08-28] MEDS: PREGABALIN 100 MG CAP PO SCH (22:39)
[2016-08-28] MEDS: amLODIPine BESYLATE 5 MG TAB PO SCH (22:40)
[2016-08-29 04:22] VITALS: TEMP 97.3
[2016-08-29 05:32] LABS: % IMMATURE GRANULYOCYTES 0.2 % (0.0-1.1); ABSOLUTE IMMATURE GRANULOCYTES 0.01 10^3/uL (0.00-0.10); ADD DIFF? NO; ADD MORPH? NO; ADD SCAN? NO; ATYPICAL LYMPHOCYTE FLAG 0 (0-99); FRAGMENT RBC FLAG 0 (0-99); HEMATOCRIT 38.8 % (38.0-47.0); LEFT SHIFT FLG 0 (0-99); LIPEMIA HEMOLYSIS FLAG 80 (0-99); MEAN CELL HEMOGLOBIN 31.9 pg (27.9-34.1); MEAN CELL HEMOGLOBIN CONCENTR. 33.5 g/dL (32.4-36.7); MEAN CELL VOLUME 95.1 fL (81.5-99.8); MEAN PLATELET VOLUME 11.6 fL (8.7-11.7); PLATELET CLUMPS FLAG 10 (0-99); PLATELET COUNT 153 10^3/uL (150-400); RED BLOOD CELL COUNT 4.08 10^6/uL (4.18-5.33); RED CELL DISTRIBUTION WIDTH 12.7 % (11.5-15.2)
[2016-08-29 05:48] LABS: ANION GAP 5 mEq/L (8-16); CALCIUM 8.7 mg/dL (8.5-10.4); CARBON DIOXIDE 30 mEq/l (22-31); CHLORIDE 104 mEq/L (97-110); CREATININE 0.9 mg/dL (0.6-1.0); GLOMERULAR FILTRATION RATE > 60; GLUCOSE 99 mg/dL (70-100); POTASSIUM 4.3 mEq/L (3.5-5.2); SODIUM 139 mEq/L (134-144)
[2016-08-29] MEDS: LEVOTHYROXINE 112 MCG TAB PO SCH (06:10)
[2016-08-29] MEDS: GABAPENTIN 400 MG CAP PO SCH (09:42)
[2016-08-29] MEDS: PANTOPRAZOLE SODIUM 40 MG TAB PO SCH (09:42)
[2016-08-29] MEDS: LISINOPRIL 40 MG TAB PO SCH (09:42)
[2016-08-29] MEDS: APIXABAN 5 MG TAB PO SCH (09:42)
--- NOTE | 2016-08-29 09:44 | PDIAF ---
- Diagnosis Diagnosis: PE Code Status: Full Code - Medication Management Discharge Medications: Medications to Continue on Transfer Gabapentin [Neurontin] 800 mg PO DAILY 06/13/14 [Last Taken 08/23/16] Levothyroxine [Synthroid 112 mcg (*)] 112 mcg PO DAILY06 06/13/14 [Last Taken ] Lisinopril [Zestril 40 mg (*)] 40 mg PO DAILY 06/13/14 [Last Taken 08/23/16] amLODIPine BESYLATE [Norvasc 5 mg (*)] 5 mg PO HS 06/13/14 [Last Taken 08/22/16] Ondansetron Odt [Zofran Odt 4 mg (*)] 4 mg PO Q4 PRN #20 tab 06/18/14 [Last Taken 08/23/16] clonIDINE [Catapres (*)] 0.2 mg PO BID #0 tab 06/18/14 [Last Taken 08/23/16] QUEtiapine FUMARATE [Seroquel 100 mg (*)] 100 mg PO HS 06/20/14 [Last Taken ] Meloxicam [Mobic 7.5 mg] 7.5 mg PO HS 08/24/16 [Last Taken 08/22/16] Pregabalin [LYRICA] 200 mg PO HS 08/24/16 [Last Taken 08/22/16] Ranitidine HCl [Zantac] 150 mg PO BID 08/24/16 [Last Taken 08/23/16] Zolpidem Tartrate [Ambien 10 mg] 10 mg PO HS PRN 08/24/16 [Last Taken 08/23/16] oxyCODONE IR [Oxycodone Ir (*)] 10 mg PO BID PRN 08/24/16 [Last Taken 08/23/16] Acetaminophen [Tylenol 325mg (*)] 650 mg PO Q6 PRN #0 tab 08/29/16 [Last Taken Unknown] Apixaban [Eliquis] 10 mg PO BID #72 tab 08/29/16 [Last Taken Unknown] Cyclobenzaprine [Flexeril 10 MG (*)] 10 mg PO TID PRN #10 tab 08/29/16 [Last Taken Unknown] Discharge Medications: Refer to the Discharge Home Medication list for PRN reason. - Orders Services needed: Home Care, Registered Nurse, Physical Therapy, Occupational Therapy Home Care Face to Face: I certify that this patient was under my care and that I had the required [id number] encounter meeting the encounter requirements on the discharge day. My findings support the fact that the patient is homebound as defined in CMS Chapter 7 Medicare Benefits Manual 30.1.1, The condition of the patient is such that there exists a normal inability to leave home and consequently, leaving home would require a considerable and taxing effort. Diet Texture: Regular Texture Diet, Thin Liquids, Meds Whole w/Liquids - Follow Up Care Current Providers and Referrals: Garett Watkins MD [Medical Doctor] - As per Instructions Ramakrishna Barr MD [Medical Doctor] - follow up in 1 week (follow up to do further testing reguarding your swallowing) Edwardo Godinez MD [Medical Doctor] - (The office staff of [facility] has been instructed to contact you to arrange a follow up appointment 3 to 4 weeks following discharge from the hospital.)
[2016-08-29] MEDS: oxyCODONE IR 5 MG TAB PO PRN (10:40)
[2016-08-29 11:37] VITALS: BP 137/66; PULSE 80; RESP 17; O2SAT 99
--- NOTE | 2016-08-29 13:29 | GDS ---
DISCHARGE DIAGNOSES: 1. Acute pulmonary embolism. 2. Acute respiratory failure. 3. Pulmonic stenosis. 4. Severe neck and shoulder pain with C-spine MRI showing degenerative disk disease. 5. History of polyarteritis nodosa. 6. Chronic left upper extremity paralysis. 7. Dysphagia. 8. Hypertension. 9. Asymptomatic bradycardia. 10. Obesity. 11. Fibromyalgia. CONSULTANTS: Dr. Edwardo Godinez, [facility]. HOSPITAL COURSE AND STAY BY PROBLEM: 1. Acute pulmonary embolism: Patient presented to the hospital on 08/24/2016 with shortness of lorelei ath and was subsequently found to have multiple subsegmental right lower lobe and right middle lobe pulmonary emboli. Patient was subsequently started on low-molecular weight heparin and switched to Eliquis prior to discharge. Patient has continued to have hypoxemia throughout her hospital stay an d ultimately will be discharged with home oxygen. a. On day of discharge, the patient is fairly reluctant to leave the hospital. She tells me that h er shortness of breath is better, but she is worried since she did just start Eliquis yesterday. Sh braulio also worries that her blood pressure has fluctuated from 123 systolic to 160. I attempted to reas sure the patient, tell her that she is currently hemodynamically stable and relatively normotensive without any evidence of bleeding or intolerance of anticoagulation. The patient does understand nicola t she seems to be improving and is now agreeable to be discharged home. 2. Severe neck and back pain: Patient has continued to have neck and shoulder pain throughout her stay. She was started on Flexeril yesterday which has helped with her pain. A C-spine MRI done on 08/28/2016 revealed multiple level degenerative disk disease and degenerative joint disease in the c ervical spine. The most significant level was at C5-C6 where she does have some moderate central sp inal canal narrowing and [id number] left and moderate right neural foraminal narrowing. She denies any new neurologic deficits in her upper extremities. PHYSICAL EXAM: VITAL SIGNS: On day of discharge, blood pressure 137/66, pulse of 80, respiratory r ate 17, O2 sat 99% on 2 L. Temperature afebrile. GENERAL: No acute distress. HEART: S1, S2. KATHERINE NGS: Clear. ABDOMEN: Soft. EXTREMITIES: No edema. PERTINENT LABS AND STUDIES: CT angio of the chest done 08/24/2016: Refer to report. Cervical spine MRI done 08/28/2016: Refer to report. DISCHARGE MEDICATIONS: Please refer to discharge medication reconciliation in [facility] for full det ails. Below is a preliminary list. New medications on hospital discharge: Apixaban 10 mg p.o. b.i.d. for 1 week, then 5 mg p.o. b.i.d. thereafter to complete 6 months of treatment; Flexeril 10 mg p.o. t.i.d. p.r.n. muscle spasm. All other home medications were continued at her usual home dosages. DISCHARGE INSTRUCTIONS: The patient will be discharged from the hospital where she should follow up with her primary care provider early next week for routine hospital followup. She should possibly have followup with a neurosurgeon if she continues to have severe neck and shoulder pain and to revi ew her recent MRI. She should have a repeat echocardiogram done as an outpatient after she is on an ticoagulation for a month or so to re-evaluate her pulmonic valve stenosis. Greater than 30 minutes were spent on the discharge of this patient. /[id number]/MODL
== END 2016-08-29 14:33 | disposition home health service (06) | DRG 175 ==
LOC: EDUNIT# → F2W 08:46
PROVIDERS: ADMIT Family Medicine; ATTEND Family Medicine
DX: I26.99 Other pulmonary embolism without acute cor pulmonale (principal); J96.01 Acute respiratory failure with hypoxia; R13.10 Dysphagia, unspecified; M50.322 Other cervical disc degeneration at C5-C6 level; R00.1 Bradycardia, unspecified; K83.1 Obstruction of bile duct; I27.2 Other secondary pulmonary hypertension; Z99.81 Dependence on supplemental oxygen; E03.9 Hypothyroidism, unspecified; K21.9 Gastro-esophageal reflux disease without esophagitis; E66.9 Obesity, unspecified; Z68.31 Body mass index [BMI] 31.0-31.9, adult; G47.33 Obstructive sleep apnea (adult) (pediatric); M30.0 Polyarteritis nodosa; M79.7 Fibromyalgia; I28.8 Other diseases of pulmonary vessels; Z96.641 Presence of right artificial hip joint; Z96.651 Presence of right artificial knee joint
CPT/HCPCS: 92610-GN; 96374; 97116-GP; 97162-GP; 97165-GO; 97530-GP; 97535-GO; G8978-GP-CJ; G8979-GP-CI; G8987-GO-CJ; G8988-GO-CH; G8996-GN-CI; G8997-GN-CI; G8998-GN-CI; J1170; J1650; J2405; Q9967

== ENCOUNTER 2016-11-25 21:02 | Inpatient (IN) | payer OTHER, MEDICAID ==
[2016-11-25] MEDS ORDERED: ONDANSETRON 4 MG/2 ML VIAL IVP ONE (21:36)
--- NOTE | 2016-11-25 21:36 | CPEKG ---
Heart Rate: 54 RR Interval: 1111 P-R Interval: 160 QRSD Interval: 88 QT Interval: 432 QTC Interval: 410 P Windsor: 15 QRS Windsor: -14 T Wave Windsor: 16 EKG Severity - NORMAL ECG - EKG Impression: SINUS RHYTHM Electronically Signed By: Deuce Fenton 25-Nov-2016 23:55:49
[2016-11-25] MEDS ORDERED: NS 500 ML IV ONE (21:39)
[2016-11-25] MEDS ORDERED: IOPAMIDOL (ISOVUE 370) 100 ML BTL IV ONE (21:49)
[2016-11-25 21:56] LABS: % IMMATURE GRANULYOCYTES 0.4 % (0.0-1.1); ABSOLUTE IMMATURE GRANULOCYTES 0.04 10^3/uL (0.00-0.10); ADD DIFF? NO; ADD MORPH? NO; ADD SCAN? NO; ATYPICAL LYMPHOCYTE FLAG 10 (0-99); FRAGMENT RBC FLAG 0 (0-99); HEMATOCRIT 38.8 % (38.0-47.0); HEMOGLOBIN 13.4 g/dL (12.6-16.3); LEFT SHIFT FLG 0 (0-99); LIPEMIA HEMOLYSIS FLAG 90 (0-99); MEAN CELL HEMOGLOBIN 32.1 pg (27.9-34.1); MEAN CELL HEMOGLOBIN CONCENTR. 34.5 g/dL (32.4-36.7); MEAN CELL VOLUME 92.8 fL (81.5-99.8); MEAN PLATELET VOLUME 10.5 fL (8.7-11.7); PLATELET CLUMPS FLAG 0 (0-99); PLATELET COUNT 262 10^3/uL (150-400); RED BLOOD CELL COUNT 4.18 10^6/uL (4.18-5.33); RED CELL DISTRIBUTION WIDTH 13.5 % (11.5-15.2)
[2016-11-25 22:04] LABS: INR 1.36 (0.83-1.16); PROTIME(PATIENT) 16.8 SEC (12.0-15.0)
--- NOTE | 2016-11-25 22:04 | EDPHY ---
H & P Stated Complaint: STOMACH PAIN, NAUSEA, DIZZY, SHAKY, PE IN JUL Source: Patient, Old records Exam Limitations: No limitations - Personal History Current Tetanus/Diphtheria Vaccine: Yes Current Tetanus Diphtheria and Acellular Pertussis (TDAP): Yes Tetanus Vaccine Date: within last 10 years - Medical/Surgical History Hx Asthma: Yes Hx Chronic Respiratory Disease: No Hx Diabetes: No Hx Cardiac Disease: No Hx Renal Disease: No Hx Cirrhosis: No Hx Alcoholism: No Hx HIV/AIDS: No Hx Splenectomy or Spleen Trauma: No Other PMH: pancreatitis, polyarteritis nodosa (IN REMISSION SINCE 2002), HTN, asthma, kidney stones, hysterectomy, cholecystectomy, appendectomy. tyrone, peripheral neruopathy, cataracts, phtn, rt knee replacement, fibermyalgia, pancreatic duct stricture, OA, hypothyroid, gerd, carpal tunnel release - Social History Smoking Status: Former smoker HPI/ROS: CHIEF COMPLAINT: Chest Pain, abdominal pain HISTORY OF PRESENT ILLNESS: Patient complains of epigastric pain that started abruptly around 4:00 p.m.. This is severe, stabbing pain. It radiates directly through her abdomen to her back and then up into her upper back. It was sudden onset. Constant duration. Steadily worsening. No fever or chills but she reports feeling clammy. No shortness of breath. She is nauseated but can't vomit. No cough. Recently return from [place] last night. She had similar complaints while she was there but they resolved until today. No trauma or injury. History significant for hypertension, diabetes and former smoker. No diagnosis of MO or coronary artery disease. No recent cardiac workup. No other associated complaints or modifying factors. FAMILY HISTORY CARDIAC: Positive for MO prior to a 65 in 2 family members PRIOR CARDIAC WORKUP: Reportedly 20 years ago REVIEW OF SYSTEMS: Ten systems reviewed and are negative unless otherwise noted in the HPI EXAMINATION: General Appearance: Alert, no distress Head: normocephalic, atraumatic Eyes: Pupils equal and round, no conjunctival pallor or injection ENT, Mouth: Mucous membranes moist. Uvula midline. No erythema or edema Neck: Normal inspection, supple, non-tender Respiratory: Mild rhonchi. No wheezing, crackles or diminishment Cardiovascular: Regular rate and rhythm. No murmur. Pulses intact distally. Gastrointestinal: Abdomen is soft. Mildly tender throughout. No tympany. No rigidity. No CVA tenderness. No distention or guarding. Neurological: A&O, nonfocal, GCS 15. No pronator drift. Skin: Warm and dry, no rash. No petechiae or purpura. Extremities: Nontender, no pedal edema. Symmetric range of motion in all limbs Psychiatric: Mood and affect normal DIFFERENTIAL DIAGNOSES: Including but not limited to in no particular order: Acute Chest Pain, ACS, Stable Angina, Pneumonia, PE, duodenitis, gastritis, esophagitis, GERD MDM: 9:40 p.m. Acute chest pain and epigastric abdominal pain that radiates to the back. Given her history I have ordered CT scan of the chest to rule out PE. I have also ordered a CT scan of the abdomen and pelvis although her abdominal exam is relatively benign by examination. Vital signs remained stable. Laboratory studies are pending. She is in no acute distress. 10:10 p.m. Laboratory studies are within normal limits. Troponin and BNP are pending still. Imaging still pending. She remains hemodynamically stable in no acute distress. Two of the residents from her independent living facility approached me. They informed me that the patient has not been wearing her oxygen. They also informed that she has fallen several times. They are concerned that she warrants a higher level of care than independent living. I did not disclose any information to these individuals but accepted their information. 10:30 p.m. Troponin is negative. This is a [address] scans are pending at this time. 11:30 p.m. Case discussed with radiologist Dr. Marley. CT scan of the chest reveals no PE. There is actually improvement of the lung solorio since prior CT scan. CT scan of the abdomen and pelvis reveals no acute finding. I have discussed the case with hospitalist Dr. Odom. We discussed admission for ACS rule out. He will admit patient for observation. 11:45 p.m. I discussed the scenario with the patient. She does have a friend at bedside he was very agitated and upset about the fact that the patient is on Pradaxa. She was requesting that we immediately remove her from the medication. I discussed with her that she needs to have a medication reconciliation upon discharge home and discussed this with her primary care physician as we would not be administering the Pradaxa this evening. The patient's friend was not satisfied with this answer and voiced her dissatisfaction for this scenario. Patient, however is comfortable and appreciative of her care. She is agreed to admission for ACS rule out. EKG: Interpreted by Dr. Fenton Normal sinus rhythm. No acute ischemia SUPERVISION: Patient was evaluated in conjunction with the supervising physician. Please see their note for details. (Genaro Mcgowan) Constitutional: Initial Vital Signs Temperature (C) 36.4 C 11/25/16 21:08 Heart Rate 69 11/25/16 21:08 Respiratory Rate 20 11/25/16 21:08 Blood Pressure 160/78 H 11/25/16 21:08 O2 Sat (%) 94 11/25/16 21:08 O2 Delivery Mode Room Air O2 (L/minute) 2 Allergies/Adverse Reactions: bupivacaine HCl [From Marcaine] Allergy (Severe, Verified 11/25/16 21:12) ASTHMA TYPE SYMPTOMS Sulfa (Sulfonamide Antibiotics) Allergy (Severe, Verified 11/25/16 21:12) ASTHMA SYMPTOMS tramadol HCl [From Ultram] Allergy (Severe, Verified 11/25/16 21:12) ASTHMA TYPE SYMPTOMS Penicillins Allergy (Intermediate, Verified 11/25/16 21:12) RASH, ASTHMA TYPE REACTION propoxyphene HCl [From Darvon] Allergy (Intermediate, Verified 11/25/16 21:12) Vomiting Home Medications: Medication Instructions Recorded Lisinopril [Zestril 40 mg (*)] 40 mg PO DAILY 06/13/14 amLODIPine BESYLATE [Norvasc 5 mg 5 mg PO HS 06/13/14 (*)] Meloxicam [Mobic 7.5 mg] 7.5 mg PO HS 08/24/16 Pregabalin [LYRICA] 200 mg PO HS 08/24/16 Zolpidem Tartrate [Ambien 10 mg] 10 mg PO HS PRN 08/24/16 oxyCODONE IR [Oxycodone Ir (*)] 10 - 20 mg PO BID PRN 08/24/16 Dabigatran Etexilate Mesylate 150 mg PO DAILY 11/26/16 [Pradaxa] Gabapentin [Gabapentin] 400 mg PO DAILY 11/26/16 Levothyroxine Sodium 125 mcg PO DAILY@06 11/26/16 [Levothyroxine Sodium] Omeprazole 40 mg PO DAILY 11/26/16 clonIDINE [Catapres (*)] 0.1 mg PO BID 11/26/16 Medical Decision Making ED Course/Re-evaluation: I did not see this patient while she was in the emergency department. However her care was discussed with the PA while the patient was in the department. I agree with treatment plan and management (Deuce Fenton) - Data Points Laboratory Results: Laboratory Results 11/25/16 21:40 11/25/16 21:40 Medications Given: Discontinued Medications Aspirin Buffered (Aspirin Ec) 325 mg PO ONCE ONE Stop: 11/26/16 00:08 Last Admin: 11/26/16 00:20 Dose: 325 mg Sodium Chloride (Ns) 500 mls @ 0 mls/hr IV ONCE ONE PRN Reason: Wide Open Stop: 11/25/16 21:40 Last Admin: 11/25/16 21:50 Dose: 500 mls Pantoprazole Sodium 40 mg/ (Sodium Chloride) 100 mls @ 200 mls/hr IV ONCE ONE Stop: 11/26/16 00:59 Last Admin: 11/26/16 00:35 Dose: 100 mls Morphine Sulfate (Morphine) 2 mg IVP EDNOW ONE Stop: 11/25/16 21:37 Last Admin: 11/25/16 21:50 Dose: 2 mg Morphine Sulfate (Morphine) 4 mg IVP EDNOW ONE Stop: 11/25/16 23:11 Last Admin: 11/25/16 23:10 Dose: 4 mg Ondansetron HCl (Zofran) 4 mg IVP EDNOW ONE Stop: 11/25/16 21:37 Last Admin: 11/25/16 21:50 Dose: 4 mg Warfarin Sodium (Coumadin) 5 mg PO ONCE@16 ONE Stop: 11/25/16 23:46 Last Admin: 11/26/16 00:23 Dose: 5 mg Zolpidem Tartrate (Ambien) 5 mg PO ONCE ONE Stop: 11/26/16 03:08 Last Admin: 11/26/16 05:06 Dose: Not Given Departure - Departure Disposition: [facility] Inpatient Acute Clinical Impression: Acute chest pain Condition: Good
[2016-11-25 22:05] LABS: ALANINE AMINOTRANSFERASE 37 IU/L (9-52); ALBUMIN 3.9 g/dL (3.5-5.0); ALKALINE PHOSPHATASE 89 IU/L (38-126); ANION GAP 9 mEq/L (8-16); APTT 46.6 SEC (23.0-38.0); ASPARTATE AMINOTRANSFERASE 35 IU/L (14-46); BILIRUBIN,TOTAL 1.1 mg/dL (0.1-1.4); BILIRUBIN-CONJUGATED 0.4 mg/dL (0.0-0.5); BILIRUBIN-UNCONJUGATED 0.7 mg/dL (0.0-1.1); CALCIUM 9.5 mg/dL (8.5-10.4); CARBON DIOXIDE 24 mEq/l (22-31); CHLORIDE 100 mEq/L (97-110); CREATININE 0.9 mg/dL (0.6-1.0); GLOMERULAR FILTRATION RATE > 60; GLUCOSE 117 mg/dL (70-100); POTASSIUM 4.2 mEq/L (3.5-5.2); SODIUM 133 mEq/L (134-144); TOTAL PROTEIN 6.4 g/dL (6.3-8.2)
[2016-11-25 22:16] LABS: TROPONIN I < 0.012 ng/mL (0-0.034)
[2016-11-25 22:22] LABS: COLOR PALE YELLOW; LEUKOCYTE ESTERASE,URINE TRACE (NEGATIVE); NITRITE,URINE NEGATIVE (NEGATIVE)
[2016-11-25 22:30] LABS: RBC,URINE 50-182 /hpf (0-3)
[2016-11-25] MEDS ORDERED: WARFARIN SODIUM 5 MG TAB PO ONE (23:45)
[2016-11-26] MEDS ORDERED: WARFARIN SODIUM 5 MG TAB ONE (00:05)
[2016-11-26] MEDS ORDERED: ASPIRIN EC 325 MG TAB PO ONE ×2 (00:07→00:17)
[2016-11-26] MEDS ORDERED: PANTOPRAZOLE SODIUM 40 MG in NS 100 ML IV ONE (00:30)
--- NOTE | 2016-11-26 00:53 | GHP ---
[f rep st] HISTORY AND PHYSICAL DATE OF ADMISSION: 11/25/2016 CHIEF COMPLAINT: Epigastric and chest pain. HISTORY OF PRESENT ILLNESS: This is a 76-year-old female with multiple medical problems, who was re cently vacationing in [place], who presents with epigastric and chest pain. It has been off and on for a little while; however, much worse tonight thus she presented to the emergency department. Atiya ramsey describes it as severe stabbing radiating to her back, as well as her left neck. She has felt diz zy. A little bit short of breath. She had a PE in August. She is currently taking Pradaxa once a day as she was unable to tolerate the twice a day dosing. She tells me that she went to the ED tw [facility] in [place]. She tells me that 1 time one of her cardiac enzymes was slightly elevated, though she did not receive a cardiac workup in [place]. She is very worried about her heart. She was diagnosed with a PE in August, started on Eliquis, switched to Pradaxa about 3 weeks ago. Since then, she has had significant epigastric pain immediate when she takes the Pradaxa. I think it is exactly the pain that she is describing today. She requested to be changed to a different ant icoagulant. PAST MEDICAL/SURGICAL HISTORY: 1. PE. 2. Hypothyroid. 3. Hypertension. 4. Fibromyalgia. 5. Allergic rhinitis. 6. Depression. 7. Low back pain. 8. GERD. 9. Osteoarthritis. 10. Obesity. 11. Polyarteritis nodosa. 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 13. Cholecystectomy. 14. Right knee replacement. 15. Hysterectomy. 16. Carpal tunnel release. 17. Cataract surgery. 18. Right hip replacement. 19. Small bowel obstruction. 20. Obstructive sleep apnea. MEDICATIONS: Please see medication reconciliation. ALLERGIES: Penicillin, sulfa, Ultram, Marcaine, bupivacaine, tramadol, Darvon. FAMILY HISTORY: Multiple members with early coronary artery disease. SOCIAL HISTORY: She does not drink or smoke. REVIEW OF SYSTEMS: 10-point review of systems is conducted and is negative except per HPI. PHYSICAL EXAMINATION: VITAL SIGNS: Blood pressure 160/78, heart rate 69, respiration rate 20, satu rating 94% on room air, temperature is 36.4. GENERAL: The patient is a pleasant female resting com fortably, in no acute distress. HEENT: Shows her to be normocephalic, atraumatic. CARDIOVASCULAR: Regular rate and rhythm. No murmurs, rubs, or gallops. PULMONARY: Lungs clear to auscultation b ilaterally. ABDOMEN: Soft, nontender, nondistended. SKIN: Shows no rash. : Shows no Blanco. NEUROLOGIC: Shows her to be alert and oriented x3. She is moving all extremities. PSYCHIATRIC: S hows normal mood and affect. LABORATORY DATA: CBC is normal. INR is 1.36. Sodium is 133, LFTs are normal. Lipase is negative. Urinalysis shows 50-182 reds with 3-5 whites. DATA: 1. I reviewed her abdominal CT. This was reported as nothing acute. 2. Chest and thorax CT angiogram is negative for PE. 3. EKG, which I personally reviewed and interpreted, shows sinus rhythm. There is nothing acute. IMPRESSION AND PLAN: A 76-year-old female with chest and epigastric pain. 1. Chest/epigastric pain: I think it is reasonable to consider this to be a possible anginal equiv alent. Chest and abdominal CTs are negative. Will trend her troponins. I have ordered a Lexiscan for tomorrow morning. Will provide her with an aspirin tonight. Will order Protonix, as well. 2. Recent pulmonary embolism on anticoagulation: She has had side effects to Pradaxa, including in ability to tolerate this given epigastric pain. She requests to be switched to warfarin. I will ch garcia her to warfarin. I will order bridging with Lovenox to start tomorrow. 3. Neck pain: She had a C-spine MRI in August, which showed some central canal narrowing. Will treat symptomatically. 4. Fibromyalgia: May be complicating her care overall. 5. Code status: She would like to be full code/full tube. 6. Venous thromboembolism risk is low while she is on anticoagulation. /[id number]/MODL
[2016-11-26] MEDS: TEMAZEPAM 15 MG CAP PO PRN ×2 (01:19→02:58)
[2016-11-26] MEDS: oxyCODONE IR 5 MG TAB PO PRN ×5 (01:19→21:55)
[2016-11-26] MEDS: ONDANSETRON DISINTEGRATING 4 MG TAB PO PRN (01:40)
[2016-11-26] MEDS ORDERED: ZOLPIDEM TARTRATE 5 MG TAB PO ONE (03:07)
[2016-11-26 07:01] LABS: INR 1.27 (0.83-1.16); PROTIME(PATIENT) 15.9 SEC (12.0-15.0)
[2016-11-26 07:12] LABS: ALANINE AMINOTRANSFERASE 34 IU/L (9-52); ALBUMIN 3.3 g/dL (3.5-5.0); ALKALINE PHOSPHATASE 73 IU/L (38-126); ANION GAP 7 mEq/L (8-16); ASPARTATE AMINOTRANSFERASE 32 IU/L (14-46); CALCIUM 8.6 mg/dL (8.5-10.4); CARBON DIOXIDE 28 mEq/l (22-31); CHLORIDE 103 mEq/L (97-110); CREATININE 0.8 mg/dL (0.6-1.0); GLOMERULAR FILTRATION RATE > 60; GLUCOSE 97 mg/dL (70-100); POTASSIUM 4.6 mEq/L (3.5-5.2); SODIUM 138 mEq/L (134-144); TOTAL PROTEIN 5.5 g/dL (6.3-8.2)
[2016-11-26 07:23] LABS: TROPONIN I 0.014 ng/mL (0-0.034)
[2016-11-26 07:28] LABS: % IMMATURE GRANULYOCYTES 1.3 % (0.0-1.1); ABSOLUTE IMMATURE GRANULOCYTES 0.11 10^3/uL (0.00-0.10); ADD DIFF? NO; ADD MORPH? NO; ADD SCAN? NO; ATYPICAL LYMPHOCYTE FLAG 0 (0-99); FRAGMENT RBC FLAG 20 (0-99); HEMOGLOBIN 12.4 g/dL (12.6-16.3); LEFT SHIFT FLG 10 (0-99); LIPEMIA HEMOLYSIS FLAG 80 (0-99); MEAN CELL HEMOGLOBIN 31.9 pg (27.9-34.1); MEAN CELL HEMOGLOBIN CONCENTR. 33.5 g/dL (32.4-36.7); MEAN CELL VOLUME 95.1 fL (81.5-99.8); PLATELET CLUMPS FLAG 10 (0-99); PLATELET COUNT 238 10^3/uL (150-400); RED BLOOD CELL COUNT 3.89 10^6/uL (4.18-5.33); RED CELL DISTRIBUTION WIDTH 13.5 % (11.5-15.2)
[2016-11-26] MEDS ORDERED: PANTOPRAZOLE SODIUM 40 MG in NS 100 ML IV SCH (09:00)
[2016-11-26] MEDS: ENOXAPARIN 80 MG/0.8 ML SYR SC SCH ×2 (09:20→20:10)
[2016-11-26] MEDS ORDERED: REGADENOSON 0.4 MG/5 ML SYR IVP ONE (10:14)
--- NOTE | 2016-11-26 10:54 | GPN ---
[f rep st] PROCEDURE NOTE DATE OF PROCEDURE: 11/26/2016 PROCEDURE PERFORMED: Lexiscan, Tc 99m sestamibi pharmacologic nuclear stress test. INDICATION FOR PROCEDURE: Epigastric discomfort. PROCEDURE: After informed consent was obtained, the patient underwent procedure at her bedside. Le xiscan 0.4 mg oral was infused. At peak hyperemia, she underwent injection of 25.3 mCi of Tc 99m se stamibi. Patient had no new complaints with Lexiscan infusion. There were no ECG changes. She roly erated the procedure well. CONCLUSION: Negative pharmacologic stress. Nuclear images pending. /[id number]/MODL
[2016-11-26] MEDS ORDERED: oxyCODONE IR 5 MG TAB PO PRN (15:58)
[2016-11-26] MEDS: LISINOPRIL 40 MG TAB PO SCH (16:34)
[2016-11-26] MEDS: GABAPENTIN 400 MG CAP PO SCH (16:34)
--- NOTE | 2016-11-26 17:30 | HOSPPROG ---
Hospitalist Progress Note Assessment/Plan: DIAGNOSES: # Unremitting epigastric pain, suspect peptic etiology with either ulcer or gastritis as most likely cause # Ongoing chronic use of nonsteroidal anti-inflammatory meloxicam # Prior history of peptic disease and use of PPI but not on that therapy recently # Has rule out for PR and no specific etiologies for her pain found on myocardial profusion imaging -- I do not think her symptoms sound like they involve cardiac, pulmonary, or vascular etiology # recent PE and having trouble with aggravation of her epigastric pain taking Pradaxa, wishes to start Coumadin # History of cholecystectomy, history of small-bowel obstruction PLANS: -Nonsteroidal anti-inflammatory meloxicam -Twice daily proton pump inhibitors -I think she has too many medications at too many times of day to safely take sucralfate but I have asked the pharmacist to review her medicine list to see if we can get her any -I have asked Dr. Gunnar Clifford to see her for upper endoscopy which will plan on doing tomorrow, we reviewed the case in detail SUBJECTIVE: still have ongoing epigastric pain, requiring narcotic analgesic Today she reports to me that this pain is clearly aggravated any time she eats any food and she is having quite a bit of difficulty taking food or any medications OBJECTIVE Vitals reviewed: stable without fever [employer], my review: sinus rhythm Exam: alert oriented, looks mildly to moderately uncomfortable at this moment skin warm dry color ok resps not labored lungs clear BSs heart regular abd soft nondistended with some epigastric tenderness but no guarding or rebound, bowel sounds present limbs warm, no edema iv site ok I reviewed her myocardial perfusion images which show no evidence of ischemia or infarct or myocardial dysfunction lab data: All troponins normal Objective: Vital Signs Temp Pulse Resp BP Pulse Ox 36.6 C 57 L 18 122/68 H 93 11/26/16 11:47 11/26/16 11:47 11/26/16 11:47 11/26/16 11:47 11/26/16 11:47 Laboratory Results 11/26/16 06:30 11/26/16 06:30 11/25/16 11/26/16 11/27/16 06:59 06:59 06:59 Intake Total 600 100 Balance 600 100 PT 15.9 SEC (12.0-15.0) H 11/26/16 06:30 INR 1.27 (0.83-1.16) H 11/26/16 06:30 ICD10 Worksheet Patient Problems: Problems Problem Status Onset Acute chest pain Acute Hypoxia Acute Pancreatitis Acute Pulmonary emboli Acute
[2016-11-26] MEDS: ACETAMINOPHEN 325 MG TAB PO PRN (17:53)
[2016-11-26] MEDS: amLODIPine BESYLATE 5 MG TAB PO SCH (20:09)
[2016-11-26] MEDS: PREGABALIN 100 MG CAP PO SCH (20:09)
[2016-11-26] MEDS: PANTOPRAZOLE SODIUM 40 MG in NS 100 ML IV SCH (20:15)
[2016-11-26] MEDS: ZOLPIDEM TARTRATE 5 MG TAB PO PRN (21:55)
[2016-11-27] MEDS: LEVOTHYROXINE 125 MCG TAB PO SCH ×2 (06:08→08:45)
[2016-11-27] MEDS: PANTOPRAZOLE SODIUM 40 MG in NS 100 ML IV SCH ×2 (08:40→22:35)
[2016-11-27] MEDS: LISINOPRIL 40 MG TAB PO SCH (08:45)
[2016-11-27] MEDS: ENOXAPARIN 80 MG/0.8 ML SYR SC SCH ×2 (08:45→22:35)
[2016-11-27] MEDS: GABAPENTIN 400 MG CAP PO SCH (08:45)
--- NOTE | 2016-11-27 09:38 | HOSPPROG ---
Hospitalist Progress Note Assessment/Plan: DIAGNOSES: # Unremitting epigastric pain, suspect peptic etiology with either ulcer or gastritis as most likely cause # Ongoing chronic use of nonsteroidal anti-inflammatory meloxicam # Prior history of peptic disease and use of PPI but not on that therapy recently # Has rule out for FL and no specific etiologies for her pain found on myocardial profusion imaging -- I do not think her symptoms sound like they involve cardiac, pulmonary, or vascular etiology # recent PE and having trouble with aggravation of her epigastric pain taking Pradaxa, wishes to start Coumadin # History of cholecystectomy, history of small-bowel obstruction PLANS: -stop her onsteroidal anti-inflammatory meloxicam -Twice daily proton pump inhibitors -I think she has too many medications at too many times of day to safely take sucralfate but I have asked the pharmacist to review her medicine list to see if we can get her any -Dr. Clifford will be performing EGD today; further plans for evaluation or treatment will be made after that study SUBJECTIVE: Says she feels better this morning with a little bit less pain, largely due to not having eaten anything over night, but still with epigastric pain. No nausea or vomiting No fever symptoms Notably the patient states that this abdominal pain is somewhat reminiscent of some pain she had related to polyarteritis nodosa in 1992 which was treated aggressively with anti-inflammatory immune regimen at that point. She states that she had multiple aneurysms in her liver found at that time. OBJECTIVE Vitals reviewed: stable without fever [employer], my review: sinus rhythm Exam: alert oriented, looks mildly to moderately uncomfortable at this moment skin warm dry color ok resps not labored lungs clear BSs heart regular abd soft nondistended with still some epigastric tenderness but no guarding or rebound, bowel sounds present limbs warm, no edema iv site ok myocardial perfusion images which show no evidence of ischemia or infarct or myocardial dysfunction lab data: All troponins normal Objective: Vital Signs Temp Pulse Resp BP Pulse Ox 36.6 C 73 14 134/74 H 95 11/27/16 08:00 11/27/16 08:00 11/27/16 08:00 11/27/16 08:00 11/27/16 08:00 Laboratory Results 11/26/16 06:30 11/26/16 06:30 11/26/16 11/27/16 11/28/16 06:59 06:59 06:59 Intake Total 600 800 100 Balance 600 800 100 PT 15.9 SEC (12.0-15.0) H 11/26/16 06:30 INR 1.27 (0.83-1.16) H 11/26/16 06:30 ICD10 Worksheet Patient Problems: Problems Problem Status Onset Acute chest pain Acute Hypoxia Acute Pancreatitis Acute Pulmonary emboli Acute
[2016-11-27] MEDS: ACETAMINOPHEN 325 MG TAB PO PRN (10:17)
[2016-11-27] MEDS ORDERED: fentaNYL 100 MCG/2 ML INJ ONE (17:28)
[2016-11-27] MEDS ORDERED: MIDAZOLAM 2 MG/2 ML VIAL ONE (17:28)
--- NOTE | 2016-11-27 17:59 | POSTOPPROG ---
Post Op Note Date of Operation: 11/27/16 Surgeon: Gunnar Clifford Anesthesia: IV Sedation (versed 8mg fentanyl 100 mcg IV) Pre-op Diagnosis: epi pain Post-op Diagnosis: esophagitis, gastritis Indication: epi pain Procedure: egd and bx Findings: query EoE? gastritis Inf/Abcess present in the surg proc area at time of surgery?: No EBL: Minimal (few ml) Total fluids administered: 400 cc IV NS Complications: none immediate
--- NOTE | 2016-11-27 22:03 | GCON ---
[f rep st] CONSULTATION DATE OF CONSULTATION: 11/27/2016 REFERRING PHYSICIAN: Dr. Lloyd REASON FOR CONSULTATION: Abdominal pain. HISTORY OF PRESENT ILLNESS: The patient is a pleasant 76-year-old female, with past medical history significant for reflux, hepatic artery aneurysm, cholecystectomy, osteoarthritis, depression, hyper tension, hyperthyroidism, history of PE, and obstructive sleep apnea, among others which are listed below. Patient has been complaining of epigastric and some chest discomfort. This occurred when she was tr aveling in [place]. She had an evaluation when she was there. She states that her cardiac enzymes were slightly elevated on 1 episode, although she did not receive any significant workup. She did have a pulmonary embolus in August and she is taking Pradaxa for that. She describes the pain las ting about 3 weeks, which is the time from which she has been switched over to Pradaxa. Eating food worsens it and being n.p.o. improves it. She says it is similar to when she had her episode of valenzuela creatitis in the past, although is slightly different in location. She does take meloxicam for fibr omyalgia and other chronic pain. These symptoms do not awaken her from sleep. She does have nausea and dry heaving, but does not bring up any vomitus. She has no melena or hematochezia. There has been no weight loss. I am now called to help and evaluate her abdominal pain for the last number of weeks. PAST MEDICAL HISTORY: History of PE, hyperthyroidism, hypertension, fibromyalgia, allergic rhinitis depression low-back pain, reflux, GERD, osteoarthritis, obesity, polyarteritis nodosa, hepatic paula ry aneurysm, cholecystectomy, obstructive sleep apnea. PAST SURGICAL HISTORY: Cholecystectomy, right knee replacement, hysterectomy, carpal tunnel, catara ct surgery, right hip replacement, small-bowel obstructions; she is not sure if that is related to a dhesions. MEDICATIONS: In hospital include Tylenol p.r.n., Norvasc 5 mg q.h.s., clonidine 0.1 mg b.i.d., Love nox 80 mg subcu b.i.d., Neurontin 400 mg daily, Synthroid 125 mcg daily, Zestril 40 mg daily, morphi ne p.r.n., Zofran p.r.n., pantoprazole 100 mg which is 40 mg IV q.12 or b.i.d., Lyrica 200 mg q.h.s. , Restoril 15 mg p.r.n., warfarin, Ambien 10 mg p.o. q.h.s. ALLERGIES: Penicillin, sulfa, Ultram, Marcaine, bupivacaine, Darvon. FAMILY HISTORY: Multiple members with early coronary artery disease. She does not have any colon c ancer or other cancers to her knowledge. SOCIAL HISTORY: She does not smoke or drink. She quit smoking when she was in her mid 20s. REVIEW OF SYSTEMS: A complete review of systems was performed and is negative other than noted in t he HPI. PHYSICAL EXAMINATION: GENERAL: Well-developed, well-nourished, elderly female, lying in her bed, i n no acute distress. VITAL SIGNS: Blood pressure 109/59, pulse 67, respirations 14, she is 92% on 2 L. HEENT: Eyes anicteric. PERRLA. EOMI. Mouth: No lesions. NECK: Supple. Full range of mo tion. No JVD. BACK: No spine tenderness. No CVA tenderness. LUNGS: Clear to auscultation. CAR DIAC: S1, S2. Regular rate and rhythm. I do not appreciate any murmurs, rubs or gallops. ABDOMEN : Bowel sounds are normal pitch and frequency, soft with epigastric subxiphoid tenderness. No rebo und. No guarding. No hepatosplenomegaly. EXTREMITIES: No cyanosis, clubbing, or edema. NEUROLOG IC: Cranial nerves intact. Nonfocal. SKIN: No stigmata of advanced liver disease. No rashes. LABORATORY DATA: From today: WBC 8.35, hemoglobin 12.4, hematocrit 37.0, platelet count 135. On M ay : Hemoglobin 13.3, hematocrit 40.9. Sodium 138, potassium 4.6, chloride 103, bicarb 28, BUN 15, creatinine 0.8, glucose 97, calcium 8.6, total bilirubin 1.0. AST 32, ALT 34, total protein 5. 3, albumin 3.3, alkaline phosphatase 73. Troponins have been negative. Lipase November 25 was 58. Pr o time from November 26, 15.9, INR 1.27. CT scan from November 25 with IV but no oral contrast, no acute abdominal or pelvic abnormality, no significant change from prior study of December 29, 2015. Pancreas says they look normal. Liver normal. Biliary system normal. A myocardial perfusion scan, nuclear medicine test, she had normal left ventricular ejection fraction of 67%. No focal wall motion abnor malities. No evidence of ischemia or infarct. ASSESSMENT: 1. Epigastric subxiphoid pain, worse with p.o. intake, and the patient is taking excessive amount o f nonsteroidals, with normal liver enzymes, normal lipase, and CT scan without significant abnormali ty. 2. History of sleep apnea. 3. History of hyperthyroidism. 4. History of hypertension. 5. History of fibromyalgia. RECOMMENDATIONS: 1. EGD for evaluation of epigastric pain. 2. Continue PPI therapy pending above. 3. Treatment of her other chronic medical issues, as per hospitalist. 4. Further recommendations to follow after results of EGD. Thank you for allowing me to participate in this patient's healthcare. Do not hesitate to call me w ith any questions. /[id number]/MODL
[2016-11-27] MEDS: amLODIPine BESYLATE 5 MG TAB PO SCH (22:35)
[2016-11-27] MEDS: ZOLPIDEM TARTRATE 5 MG TAB PO PRN (22:35)
[2016-11-27] MEDS: PREGABALIN 100 MG CAP PO SCH (22:35)
[2016-11-28] MEDS: LEVOTHYROXINE 125 MCG TAB PO SCH (03:33)
--- NOTE | 2016-11-28 04:38 | GPN ---
[f rep st] PROCEDURE NOTE PROCEDURE: EGD and biopsy procedure. INDICATION: Abdominal pain. PREOPERATIVE DIAGNOSIS: Rule out ulcer. POSTOPERATIVE DIAGNOSES: 1. Esophagitis, query eosinophilic esophagitis. 2. Gastritis. 3. Normal duodenum. INFORMED CONSENT: I discussed with the patient regarding the procedure, alternatives, benefits, and risks including bleeding, perforation, infection, risk of medication. Informed consent was signed and witnessed. COMPLICATIONS: None immediate. MEDICATIONS: Versed 8 mg IV, fentanyl 100 mcg IV. DESCRIPTION OF PROCEDURE: The patient was placed in the left lateral decubitus position. After adequate IV sedation, the forward viewing upper endoscope was inserted via the oropharynx and advanced under direct vision down the esophagus. At the distal esophagus and GE junction, there was a minimal amount of inflammation. The endoscope was advanced into the stomach. There was diffuse gastritis in the antrum. There were no ulcers or masses. The pylorus was normal. The duodenal bulb and sweep were normal. The endoscope was withdrawn back in the stomach and retroflexed examination was performed. Her previous fundoplication appeared to be intact and not too tight. I did not note any significant ulcerations or abnormality mucosa in that area. The endoscope was un-retroflexed and withdrawn back into the esophagus. The endoscope was then advanced back into the antrum and biopsies were obtained for histologic review. I then withdrew the endoscope back to the esophagus and biopsies were taken of the distal esophagus for histologic evaluation. In the proximal esophagus, there were 3 white plaques and I biopsied these areas and the surrounding tissue. The biopsies had a "leathery" feel which I associated with the eosinophilic infiltration. The endoscope was advanced back into the stomach and air was removed. The endoscope was then completely withdrawn, confirming the above findings. The patient tolerated the procedure well and was transferred to the recovery room in satisfactory condition. IMPRESSION: 1. Esophagitis, query eosinophilic esophagitis. 2. Gastritis. 3. Normal duodenum. RECOMMENDATIONS: 1. Continue Protonix 40 mg twice daily. 2. Consider adding either ranitidine 300 mg at bedtime or possibly Carafate as a cytoprotective agent. 3. Followup biopsies if evidence of eosinophilic esophagitis. Treat with fluticasone, swallowed not inhaled and have the patient visit with an sales representative jewelry to see if there are any food allergies. 4. Clear liquid diet. Advance as tolerated. 5. Return [facility] to [facility] care. 6. Further recommendations to follow results of above and clinical course. Thank you for allowing me to participate in this patient's health care. Do not hesitate to call me with any questions. /[id number]/MODL MTDD
[2016-11-28] MEDS: LISINOPRIL 40 MG TAB PO SCH (07:56)
[2016-11-28] MEDS: GABAPENTIN 400 MG CAP PO SCH (07:58)
[2016-11-28] MEDS: ENOXAPARIN 80 MG/0.8 ML SYR SC SCH ×2 (07:58→22:29)
[2016-11-28] MEDS: PANTOPRAZOLE SODIUM 40 MG in NS 100 ML IV SCH (08:35)
--- NOTE | 2016-11-28 14:57 | SOAPPROG ---
SOAP Progress Note Assessment/Plan: Assessment:Plan: 1) epi abdo pain - PPI to PO BID, f/u bx from EGD, suspect from her gastritis, advance diet 2) esophagitis - f/u bx, possible EoE 11/28/16 14:58 Subjective: cc- abdo pain feeling a bit better, less pain but still with pain and decreased PO intake no dysphagia now, query Eosinophilic esophagitis Objective: Vital Signs Temp Pulse Resp BP Pulse Ox 36.8 C 56 L 14 110/58 L 89 L 11/28/16 12:00 11/28/16 12:00 11/28/16 12:00 11/28/16 12:00 11/28/16 12:00 11/27/16 11/28/16 11/29/16 05:59 05:59 05:59 Intake Total 150 100 Balance 150 100 PT 15.9 SEC (12.0-15.0) H 11/26/16 06:30 INR 1.27 (0.83-1.16) H 11/26/16 06:30 A+Ox3 CTA S1S2 +BS, soft epi tenderness no r/g ICD10 Worksheet Patient Problems: Problems Problem Status Onset Acute chest pain Acute Hypoxia Acute Pancreatitis Acute Pulmonary emboli Acute
[2016-11-28] MEDS: oxyCODONE IR 5 MG TAB PO PRN ×3 (15:15→22:59)
--- NOTE | 2016-11-28 18:16 | HOSPPROG ---
Hospitalist Progress Note Assessment/Plan: DIAGNOSES: # Unremitting epigastric pain # Severe Gastritis as cause of above, due to chronic NSAID # Suspected Eosinophilic Esophagitis biopsy pending # Has ruled out for ID and no specific etiologies for her pain found on myocardial profusion imaging -- I do not think her symptoms sound like they involve cardiac, pulmonary, or vascular etiology # recent PE on pradaxa # History of cholecystectomy, history of small-bowel obstruction PLANS: -stop her nonsteroidal anti-inflammatory meloxicam -Twice daily proton pump inhibitors -I think she has too many medications at too many times of day to safely take sucralfate but I have asked the pharmacist to review her medicine list to see if we can get her any -Should be able to get her back on pradaxa for her PE at this time -will need outpt f/u of biopsy for ? eosinophilic esophagitis -suspect could go home 11/29 SUBJECTIVE: still w quite a bit of pain but again better than yest taking clear liquids OBJECTIVE Vitals reviewed: stable without fever Insurance Claims Examiner, my review: sinus rhythm Exam: alert oriented, looks mildly to moderately uncomfortable at this moment skin warm dry color ok resps not labored lungs clear BSs heart regular abd soft nondistended with still some epigastric tenderness but no guarding or rebound, bowel sounds present limbs warm, no edema iv site ok myocardial perfusion images which show no evidence of ischemia or infarct or myocardial dysfunction lab data: All troponins normal Objective: Vital Signs Temp Pulse Resp BP Pulse Ox 36.8 C 54 L 12 142/74 H 88 L 11/28/16 16:00 11/28/16 16:00 11/28/16 16:00 11/28/16 17:44 11/28/16 16:00 11/27/16 11/28/16 11/29/16 06:59 06:59 06:59 Intake Total 150 100 Balance 150 100 PT 15.9 SEC (12.0-15.0) H 11/26/16 06:30 INR 1.27 (0.83-1.16) H 11/26/16 06:30 ICD10 Worksheet Patient Problems: Problems Problem Status Onset Acute chest pain Acute Hypoxia Acute Pancreatitis Acute Pulmonary emboli Acute
[2016-11-28] MEDS: amLODIPine BESYLATE 5 MG TAB PO SCH (22:28)
[2016-11-28] MEDS: PREGABALIN 100 MG CAP PO SCH (22:28)
[2016-11-28] MEDS: PANTOPRAZOLE SODIUM 40 MG TAB PO SCH (22:28)
[2016-11-28] MEDS: ZOLPIDEM TARTRATE 5 MG TAB PO PRN (22:28)
[2016-11-29] MEDS: LEVOTHYROXINE 125 MCG TAB PO SCH (04:17)
[2016-11-29] MEDS: oxyCODONE IR 5 MG TAB PO PRN ×5 (04:18→22:07)
[2016-11-29] MEDS: PANTOPRAZOLE SODIUM 40 MG TAB PO SCH (08:29)
[2016-11-29] MEDS: LISINOPRIL 40 MG TAB PO SCH (08:29)
[2016-11-29] MEDS: GABAPENTIN 400 MG CAP PO SCH (08:29)
[2016-11-29] MEDS ORDERED: DABIGATRAN ETEXILATE MESYL 150 MG CAP PO SCH (09:00)
--- NOTE | 2016-11-29 10:37 | HOSPPROG ---
Hospitalist Progress Note Assessment/Plan: # gastritis d/t NSAIDs and esophagitis (?eosinophilic) causing epigastric pain - cont protonix, change to IV today - f/u bx # recent PE - she is convinced that pradaxa caused her sx; I told her this is not the case, but will change her to xarelto at her request # CP - negative Jannie # fibromyalgia # htn - norvasc, lisinopril # hypothyroid - synthroid Subjective: ongoing epigastric pain; eating small amounts of food with difficulty Objective: Vital Signs Temp Pulse Resp BP Pulse Ox 36.4 C 57 L 18 113/69 95 11/29/16 08:31 11/29/16 08:31 11/29/16 08:31 11/29/16 08:31 11/29/16 08:31 11/28/16 11/29/16 11/30/16 05:59 05:59 05:59 Intake Total 150 325 Balance 150 325 PT 15.9 SEC (12.0-15.0) H 11/26/16 06:30 INR 1.27 (0.83-1.16) H 11/26/16 06:30 chart reviewed Lexiscan reviewed EGD op note reviewed - Physical Exam Constitutional: no apparent distress, appears nourished Cardiovascular: regular rate and rhythym, no murmur, rub, or gallop Respiratory: no respiratory distress, no rales or rhonchi, clear to auscultation Gastrointestinal: normoactive bowel sounds, other (soft, epigastric TTP), No guarding, No rebound ICD10 Worksheet Patient Problems: Problems Problem Status Onset Pancreatitis Acute Pulmonary emboli Acute Hypoxia Acute Acute chest pain Acute
--- NOTE | 2016-11-29 13:24 | SOAPPROG ---
[facility] Progress Note Assessment/Plan: Assessment:Plan: 1) epi abdo pain - PPI to PO BID, f/u bx from EGD, suspect from her gastritis, advance diet 2) esophagitis - f/u bx, possible EoE 11/28/16 14:58 11/29/16 13:21 1) Epi abdo RUQ pain - more today, feels IV PPI was better, c/o pain in her should blade, maybe reminiscent of her GB sx's many years ago f/u bx, HIDA scan with SOD protocol (CT report corrected to show s/p Diane, ducts are normal for post diane state, reviewd with review with radiology today. She feels anticoag med as cause of sx's, I agree with Dr. Odom but changing med is easy 2) Esophagitis - query EoE, f/u pathology Subjective: cc- abdo pain, both epi and RUQ and some radiation to her right shoulder blade pt feels more pain this am, only with PO intake then last couple hours Objective: Vital Signs Temp Pulse Resp BP Pulse Ox 36.3 C 59 L 16 110/63 95 11/29/16 12:00 11/29/16 12:00 11/29/16 12:00 11/29/16 12:00 11/29/16 12:00 11/28/16 11/29/16 11/30/16 05:59 05:59 05:59 Intake Total 150 325 Balance 150 325 PT 15.9 SEC (12.0-15.0) H 11/26/16 06:30 INR 1.27 (0.83-1.16) H 11/26/16 06:30 A+Ox3 CTA S1S2 +BS, soft both ruq and epi tenderness no r/g Laboratory Tests 11/25/16 11/26/16 21:40 06:30 AST 35 32 ALT 37 34 Alkaline Phosphatase 89 73 Lipase 58.0 ICD10 Worksheet Patient Problems: Problems Problem Status Onset Acute chest pain Acute Hypoxia Acute Pancreatitis Acute Pulmonary emboli Acute
[2016-11-29] MEDS: ONDANSETRON DISINTEGRATING 4 MG TAB PO PRN (18:06)
[2016-11-29] MEDS: amLODIPine BESYLATE 5 MG TAB PO SCH (20:59)
[2016-11-29] MEDS: PANTOPRAZOLE SODIUM 40 MG in NS 100 ML IV SCH (21:00)
[2016-11-29] MEDS: PREGABALIN 100 MG CAP PO SCH (21:00)
[2016-11-29] MEDS: ACETAMINOPHEN 325 MG TAB PO PRN (21:02)
[2016-11-29] MEDS: ZOLPIDEM TARTRATE 5 MG TAB PO PRN (22:12)
[2016-11-30] MEDS: oxyCODONE IR 5 MG TAB PO PRN ×5 (02:15→23:44)
[2016-11-30] MEDS: LEVOTHYROXINE 125 MCG TAB PO SCH (04:32)
[2016-11-30] MEDS ORDERED: SINCALIDE 5 MCG VIAL IJ ONE (08:47)
[2016-11-30] MEDS: LISINOPRIL 40 MG TAB PO SCH (08:53)
[2016-11-30] MEDS: RIVAROXABAN 20 MG TAB PO SCH (08:53)
[2016-11-30] MEDS: GABAPENTIN 400 MG CAP PO SCH ×2 (08:54→08:57)
[2016-11-30] MEDS: PANTOPRAZOLE SODIUM 40 MG in NS 100 ML IV SCH ×2 (08:54→19:55)
[2016-11-30] MEDS: ACETAMINOPHEN 325 MG TAB PO PRN (13:12)
[2016-11-30] MEDS ORDERED: LACTULOSE 20 GM/30 ML UDCUP PO PRN (15:49)
[2016-11-30] MEDS ORDERED: POLYETHYLENE GLYCOL 3350 17 GM PKT PO PRN (15:49)
--- NOTE | 2016-11-30 15:57 | HOSPPROG ---
Hospitalist Progress Note Assessment/Plan: # gastritis d/t NSAIDs and esophagitis (?eosinophilic) causing epigastric pain - cont protonix, change to IV today - f/u bx # mild SOD by HIDA - GI considering ERCP # biliary gastric reflux - will start carafate - difficult with her other meds # odontogenic infection - clinda PO (allergy to pcn) # recent PE - changed from pradaxa to xarelto per patient request (she believes pradaxa caused GI sx) # CP - negative Jannie # fibromyalgia # htn - norvasc, lisinopril # hypothyroid - synthroid Subjective: ongoing abd pain, bandlike worse with PO intake Objective: Vital Signs Temp Pulse Resp BP Pulse Ox 36.8 C 59 L 16 111/61 91 L 11/30/16 15:28 11/30/16 15:28 11/30/16 15:28 11/30/16 15:28 11/30/16 15:28 11/29/16 11/30/16 12/01/16 05:59 05:59 05:59 Intake Total 325 1960 Balance 325 1960 PT 15.9 SEC (12.0-15.0) H 11/26/16 06:30 INR 1.27 (0.83-1.16) H 11/26/16 06:30 - Physical Exam Constitutional: no apparent distress Cardiovascular: regular rate and rhythym, no murmur, rub, or gallop Respiratory: no respiratory distress, no rales or rhonchi, clear to auscultation Gastrointestinal: normoactive bowel sounds, other (soft; mild TTP), No guarding , No rebound ICD10 Worksheet Patient Problems: Problems Problem Status Onset Pancreatitis Acute Pulmonary emboli Acute Hypoxia Acute Acute chest pain Acute
[2016-11-30 17:18] LABS: % IMMATURE GRANULYOCYTES 0.3 % (0.0-1.1); ABSOLUTE IMMATURE GRANULOCYTES 0.02 10^3/uL (0.00-0.10); ADD DIFF? NO; ADD MORPH? NO; ADD SCAN? NO; ATYPICAL LYMPHOCYTE FLAG 10 (0-99); FRAGMENT RBC FLAG 0 (0-99); HEMATOCRIT 41.1 % (38.0-47.0); HEMOGLOBIN 13.6 g/dL (12.6-16.3); LEFT SHIFT FLG 0 (0-99); LIPEMIA HEMOLYSIS FLAG 80 (0-99); MEAN CELL HEMOGLOBIN 31.8 pg (27.9-34.1); MEAN CELL HEMOGLOBIN CONCENTR. 33.1 g/dL (32.4-36.7); PLATELET CLUMPS FLAG 0 (0-99); PLATELET COUNT 267 10^3/uL (150-400); RED BLOOD CELL COUNT 4.28 10^6/uL (4.18-5.33); RED CELL DISTRIBUTION WIDTH 13.7 % (11.5-15.2)
--- NOTE | 2016-11-30 17:29 | SOAPPROG ---
[facility] Progress Note Assessment/Plan: Assessment:Plan: 1) epi abdo pain - PPI to PO BID, f/u bx from EGD, suspect from her gastritis, advance diet 2) esophagitis - f/u bx, possible EoE 11/28/16 14:58 11/29/16 13:21 1) Epi abdo RUQ pain - more today, feels IV PPI was better, c/o pain in her should blade, maybe reminiscent of her GB sx's many years ago f/u bx, HIDA scan with SOD protocol (CT report corrected to show s/p Diane, ducts are normal for post diane state, reviewed with radiology today. She feels anticoag med as cause of sx's, I agree with Dr. Odom but changing med is easy 2) Esophagitis - query EoE, f/u pathology 11/30/16 17:29 as above 1) epi pain - query from gastritis? vs sphincter of oddi dysfunction. I would aggressively treat her gastritis and if all sx's resolve then I would further eval her biliary system. IF symptoms don't resolve then consider manometry vs sphincterotomy. If her LFT's were elevated c/w SOD then I would schedule ERCp 2) bile reflux - this is a very possible etiology of her gastritis. I tend to use Carafate as bile binder and cytoprotective agent -however needs to be form her other meds as it will bind her meds and prevent absorption 3) esophagitis - path still pending, I asked for a prelim report but didn't receive one today. will call path tomorrow will follow Subjective: cc- abdo pain, nause pt still with her sx's, feels IV PPI helpful Objective: Vital Signs Temp Pulse Resp BP Pulse Ox 36.8 C 59 L 16 111/61 91 L 11/30/16 15:28 11/30/16 15:28 11/30/16 15:28 11/30/16 15:28 11/30/16 15:28 Laboratory Results 11/30/16 16:30 11/29/16 11/30/16 12/01/16 05:59 05:59 05:59 Intake Total 325 1960 Balance 325 1960 PT 15.9 SEC (12.0-15.0) H 11/26/16 06:30 INR 1.27 (0.83-1.16) H 11/26/16 06:30 A+Ox3 CTA S1S2, +BS, soft tender RUQ > epi no rebound or guarding HIDA SOD protocol -- poor biliary emptying c/w SOD and bile reflux noted ICD10 Worksheet Patient Problems: Problems Problem Status Onset Acute chest pain Acute Hypoxia Acute Pancreatitis Acute Pulmonary emboli Acute
[2016-11-30] MEDS: SUCRALFATE 1 GM/10 ML UDCUP PO SCH ×2 (17:54→20:58)
[2016-11-30 18:10] LABS: ANION GAP 9 mEq/L (8-16); CARBON DIOXIDE 25 mEq/l (22-31); CHLORIDE 102 mEq/L (97-110); CREATININE 0.8 mg/dL (0.6-1.0); GLOMERULAR FILTRATION RATE > 60; GLUCOSE 83 mg/dL (70-100); POTASSIUM 4.2 mEq/L (3.5-5.2); SODIUM 136 mEq/L (134-144)
[2016-11-30] MEDS: amLODIPine BESYLATE 5 MG TAB PO SCH (20:02)
[2016-11-30] MEDS: PREGABALIN 100 MG CAP PO SCH (20:03)
[2016-11-30] MEDS: SENNOSIDES/DOCUSATE SODIUM TAB PO SCH (20:03)
[2016-11-30] MEDS: ONDANSETRON 4 MG/2 ML VIAL IVP PRN (21:03)
[2016-11-30] MEDS: CLINDAMYCIN 150 MG CAP PO SCH (22:20)
[2016-11-30] MEDS: ZOLPIDEM TARTRATE 5 MG TAB PO PRN (22:20)
[2016-11-30] MEDS: MAG HYDROX/AL HYDROX/SIMETH 30 ML UDCUP PO PRN (23:43)
[2016-12-01] MEDS: CLINDAMYCIN 150 MG CAP PO SCH ×3 (05:34→22:39)
[2016-12-01] MEDS: oxyCODONE IR 5 MG TAB PO PRN ×4 (05:35→22:48)
[2016-12-01] MEDS: LEVOTHYROXINE 125 MCG TAB PO SCH (05:35)
[2016-12-01] MEDS: MAG HYDROX/AL HYDROX/SIMETH 30 ML UDCUP PO PRN (06:05)
[2016-12-01] MEDS: SUCRALFATE 1 GM/10 ML UDCUP PO SCH ×4 (07:20→22:40)
[2016-12-01] MEDS: SENNOSIDES/DOCUSATE SODIUM TAB PO SCH ×2 (08:44→22:40)
[2016-12-01] MEDS: LISINOPRIL 40 MG TAB PO SCH (08:45)
[2016-12-01] MEDS: RIVAROXABAN 20 MG TAB PO SCH (08:45)
[2016-12-01] MEDS: PANTOPRAZOLE SODIUM 40 MG in NS 100 ML IV SCH ×2 (08:51→22:00)
--- NOTE | 2016-12-01 11:28 | SOAPPROG ---
[facility] Progress Note Assessment/Plan: Assessment:Plan: 1) epi abdo pain - PPI to PO BID, f/u bx from EGD, suspect from her gastritis, advance diet 2) esophagitis - f/u bx, possible EoE 11/28/16 14:58 11/29/16 13:21 1) Epi abdo RUQ pain - more today, feels IV PPI was better, c/o pain in her should blade, maybe reminiscent of her GB sx's many years ago f/u bx, HIDA scan with SOD protocol (CT report corrected to show s/p Diane, ducts are normal for post diane state, reviewed with radiology today. She feels anticoag med as cause of sx's, I agree with Dr. Odom but changing med is easy 2) Esophagitis - query EoE, f/u pathology 11/30/16 17:29 as above 1) epi pain - query from gastritis? vs sphincter of oddi dysfunction. I would aggressively treat her gastritis and if all sx's resolve then I would further eval her biliary system. IF symptoms don't resolve then consider manometry vs sphincterotomy. If her LFT's were elevated c/w SOD then I would schedule ERCp 2) bile reflux - this is a very possible etiology of her gastritis. I tend to use Carafate as bile binder and cytoprotective agent -however needs to be form her other meds as it will bind her meds and prevent absorption 3) esophagitis - path still pending, I asked for a prelim report but didn't receive one today. will call path tomorrow will follow 12/01/16 11:25 as above, still with pain with po intake I have another call into pathology to have them call me with the path results, yet to hear back 1) Epi and RUQ pain - check LFT's now with this acute episode of pain - if elevated then more c/w SOD type 1, then ERCP and sphincterotomy 2) bile reflux noted on HIDA - on carafate and PPI 3) esophagitis - path still pending, awaiting phone call from them for 2 days now, spoke again to the medical office secretary and again asked for pathologist to call me on my cell phone Subjective: cc- abdo pain both RUQ and epi with some radiation to her back says pain worse this am with PO intake, 45 minutes when I saw her Objective: Vital Signs Temp Pulse Resp BP Pulse Ox 36.5 C 62 20 124/64 H 90 L 12/01/16 08:00 12/01/16 08:00 12/01/16 08:00 12/01/16 08:00 12/01/16 08:00 Laboratory Results 11/30/16 16:30 11/30/16 16:30 11/30/16 12/01/16 12/02/16 05:59 05:59 05:59 Intake Total 1960 810 Balance 1960 810 PT 15.9 SEC (12.0-15.0) H 11/26/16 06:30 INR 1.27 (0.83-1.16) H 11/26/16 06:30 A+Ox3 CTA S1S2, RRR +BS, soft tender both Epi and RUQ and RUQ > epi pain ICD10 Worksheet Patient Problems: Problems Problem Status Onset Acute chest pain Acute Hypoxia Acute Pancreatitis Acute Pulmonary emboli Acute
[2016-12-01 11:32] LABS: ALBUMIN 3.2 g/dL (3.5-5.0); BILIRUBIN,TOTAL 0.7 mg/dL (0.1-1.4); BILIRUBIN-CONJUGATED 0.4 mg/dL (0.0-0.5); BILIRUBIN-UNCONJUGATED 0.3 mg/dL (0.0-1.1); TOTAL PROTEIN 5.9 g/dL (6.3-8.2)
[2016-12-01] MEDS: ONDANSETRON 4 MG/2 ML VIAL IVP PRN (16:46)
--- NOTE | 2016-12-01 17:30 | HOSPPROG ---
Hospitalist Progress Note Assessment/Plan: # epigastric and RUQ pain: may be d/t gastritis or esophagitis but also consider SOD # gastritis: given biliary gastric reflux, this may be the etiology - cont PPI, start carafate # esophagitis: PPI # mild SOD on HIDA - if above treatments do not alleviate pain, will pursue ERCP with sphincterotomy # odontogenic infection - clinda PO (allergy to pcn) # recent PE - changed from pradaxa to xarelto per patient request (she believes pradaxa caused GI sx) # CP - negative Jannie # fibromyalgia # htn - norvasc, lisinopril # hypothyroid - synthroid Subjective: ongoing abd pain; not eating much Objective: Vital Signs Temp Pulse Resp BP Pulse Ox 36.6 C 56 L 20 116/75 90 L 12/01/16 16:00 12/01/16 16:00 12/01/16 08:00 12/01/16 16:00 12/01/16 16:00 Laboratory Results 11/30/16 16:30 11/30/16 16:30 11/30/16 12/01/16 12/02/16 05:59 05:59 05:59 Intake Total 1960 810 Balance 1960 810 PT 15.9 SEC (12.0-15.0) H 11/26/16 06:30 INR 1.27 (0.83-1.16) H 11/26/16 06:[address] Clifford pathology report reviewed - Physical Exam Constitutional: no apparent distress, appears nourished Cardiovascular: regular rate and rhythym, no murmur, rub, or gallop Respiratory: no respiratory distress, no rales or rhonchi, clear to auscultation Gastrointestinal: normoactive bowel sounds, no palpable masses, tenderness (RUQ) , No guarding, No rebound ICD10 Worksheet Patient Problems: Problems Problem Status Onset Pancreatitis Acute Pulmonary emboli Acute Hypoxia Acute Acute chest pain Acute
[2016-12-01] MEDS: NS 1,000 ML IV SCH (17:47)
[2016-12-01] MEDS: PREGABALIN 100 MG CAP PO SCH (22:37)
[2016-12-01] MEDS: amLODIPine BESYLATE 5 MG TAB PO SCH (22:38)
[2016-12-01] MEDS: TEMAZEPAM 15 MG CAP PO PRN (22:38)
[2016-12-02] MEDS: ONDANSETRON DISINTEGRATING 4 MG TAB PO PRN ×2 (00:16→20:40)
[2016-12-02] MEDS: oxyCODONE IR 5 MG TAB PO PRN ×4 (03:51→22:19)
[2016-12-02 05:05] LABS: ALANINE AMINOTRANSFERASE 28 IU/L (9-52); ALBUMIN 2.7 g/dL (3.5-5.0); ALKALINE PHOSPHATASE 66 IU/L (38-126); ANION GAP 3 mEq/L (8-16); ASPARTATE AMINOTRANSFERASE 19 IU/L (14-46); BILIRUBIN,TOTAL 0.6 mg/dL (0.1-1.4); CALCIUM 8.4 mg/dL (8.5-10.4); CARBON DIOXIDE 29 mEq/l (22-31); CHLORIDE 103 mEq/L (97-110); CREATININE 0.9 mg/dL (0.6-1.0); GLOMERULAR FILTRATION RATE > 60; GLUCOSE 90 mg/dL (70-100); POTASSIUM 4.4 mEq/L (3.5-5.2); SODIUM 135 mEq/L (134-144); TOTAL PROTEIN 5.1 g/dL (6.3-8.2)
[2016-12-02] MEDS: CLINDAMYCIN 150 MG CAP PO SCH ×3 (06:36→22:19)
[2016-12-02] MEDS: LEVOTHYROXINE 125 MCG TAB PO SCH (06:36)
[2016-12-02] MEDS: SENNOSIDES/DOCUSATE SODIUM TAB PO SCH ×2 (09:10→19:33)
[2016-12-02] MEDS: RIVAROXABAN 20 MG TAB PO SCH (09:10)
[2016-12-02] MEDS: PANTOPRAZOLE SODIUM 40 MG in NS 100 ML IV SCH (09:11)
[2016-12-02] MEDS: LISINOPRIL 40 MG TAB PO SCH (09:11)
[2016-12-02] MEDS: SUCRALFATE 1 GM/10 ML UDCUP PO SCH ×4 (09:11→22:20)
[2016-12-02] MEDS: GABAPENTIN 400 MG CAP PO SCH (09:11)
--- NOTE | 2016-12-02 15:24 | HOSPPROG ---
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- bili normal - awaiting response to carafate for decision re ERCP from GI # gastritis- given biliary gastric reflux- sx mildly improved today - cont PPI, start carafate # esophagitis: PPI # mild SOD on HIDA - if above treatments do not alleviate pain- still considering ERCP with sphincterotomy # odontogenic infection - clinda PO (allergy to pcn) # recent PE - changed from pradaxa to xarelto per patient request (she believes pradaxa caused GI sx) CT PE (personally reviewed and interpreted) no PE or infiltrates oxygen saturations 94% on 2L - cont Xarelto # CP - negative Jannie # fibromyalgia # htn - continue norvasc, lisinopril # hypothyroid - synthroid # proph - xarelto # diet - regular as tolerated # dispo - > 2MN pending plan for ERCP and response to current meds I have discussed the case with RN - we will work on constipation with bowel regimen today Subjective: slighly improved pain and nausea this am Objective: Vital Signs Temp Pulse Resp BP Pulse Ox 36.6 C 52 L 16 133/68 H 86 L 12/02/16 07:14 12/02/16 07:14 12/02/16 07:14 12/02/16 07:14 12/02/16 08:52 Laboratory Results 11/30/16 16:30 12/02/16 03:43 12/01/16 12/02/16 12/03/16 05:59 05:59 05:59 Intake Total 810 1000 300 Balance 810 1000 300 PT 15.9 SEC (12.0-15.0) H 11/26/16 06:30 INR 1.27 (0.83-1.16) H 11/26/16 06:30 - Physical Exam Constitutional: appears nourished Eyes: anicteric sclera Ears, Nose, Mouth, Throat: moist mucous membranes Cardiovascular: regular rate and rhythym Respiratory: no respiratory distress, no rales or rhonchi Gastrointestinal: normoactive bowel sounds, tenderness, No guarding, No rebound Genitourinary: no bladder fullness Skin: warm, normal color Musculoskeletal: No asymmetric calves Neurologic: AAOx3 Psychiatric: interacting appropriately, not anxious Lymph, Heme, Immunologic: no cervical LAD ICD10 Worksheet Patient Problems: Problems Problem Status Onset Acute chest pain Acute Hypoxia Acute Pancreatitis Acute Pulmonary emboli Acute
--- NOTE | 2016-12-02 18:35 | SOAPPROG ---
[facility] Progress Note Assessment/Plan: Assessment:Plan: 1) epi abdo pain - PPI to PO BID, f/u bx from EGD, suspect from her gastritis, advance diet 2) esophagitis - f/u bx, possible EoE 11/28/16 14:58 11/29/16 13:21 1) Epi abdo RUQ pain - more today, feels IV PPI was better, c/o pain in her should blade, maybe reminiscent of her GB sx's many years ago f/u bx, HIDA scan with SOD protocol (CT report corrected to show s/p Nelia, ducts are normal for post nelia state, reviewed with radiology today. She feels anticoag med as cause of sx's, I agree with Dr. Odom but changing med is easy 2) Esophagitis - query EoE, f/u pathology 11/30/16 17:29 as above 1) epi pain - query from gastritis? vs sphincter of oddi dysfunction. I would aggressively treat her gastritis and if all sx's resolve then I would further eval her biliary system. IF symptoms don't resolve then consider manometry vs sphincterotomy. If her LFT's were elevated c/w SOD then I would schedule ERCp 2) bile reflux - this is a very possible etiology of her gastritis. I tend to use Carafate as bile binder and cytoprotective agent -however needs to be form her other meds as it will bind her meds and prevent absorption 3) esophagitis - path still pending, I asked for a prelim report but didn't receive one today. will call path tomorrow will follow 12/01/16 11:25 as above, still with pain with po intake I have another call into pathology to have them call me with the path results, yet to hear back 1) Epi and RUQ pain - check LFT's now with this acute episode of pain - if elevated then more c/w SOD type 1, then ERCP and sphincterotomy 2) bile reflux noted on HIDA - on carafate and PPI 3) esophagitis - path still pending, awaiting phone call from them for 2 days now, spoke again to the medical secretary receptionist and again asked for pathologist to call me on my cell phone 12/02/16 18:32 as above 1) RUQ pain, EPI pain - LFTs nml, need to traet her gastritis agressivley for days/weeks before decide about any biliary intervention. PPI + carafate 2) bile reflux - carafate 3) esophagitis - no EOE, 4) gastritis - path not dx of specific gastritis, it is not eosinophilic gastroenteritis 5) pain meds - I would like to get her off any IV meds and try to taper her pain meds, if possible. I left a with Dr. Kenna Saab to pecan picker service starting now 12/02/16 18:36 Subjective: cc- dafne leong both epi and ruq still with pain, trying to eat says she is up out of bed few times per day Objective: Vital Signs Temp Pulse Resp BP Pulse Ox 36.3 C 64 20 131/58 H 82 L 12/02/16 15:28 12/02/16 16:56 12/02/16 15:28 12/02/16 15:28 12/02/16 16:56 Laboratory Results 11/30/16 16:30 12/02/16 03:43 12/01/16 12/02/16 12/03/16 05:59 05:59 05:59 Intake Total 810 1000 1250 Balance 810 1000 1250 PT 15.9 SEC (12.0-15.0) H 11/26/16 06:30 INR 1.27 (0.83-1.16) H 11/26/16 06:30 A+Ox3 CTA S1S2 +BS, soft tender no r/g ICD10 Worksheet Patient Problems: Problems Problem Status Onset Acute chest pain Acute Hypoxia Acute Pancreatitis Acute Pulmonary emboli Acute
[2016-12-02] MEDS: MAG HYDROX/AL HYDROX/SIMETH 30 ML UDCUP PO PRN (20:38)
[2016-12-02] MEDS: PANTOPRAZOLE SODIUM 40 MG TAB PO SCH (20:43)
[2016-12-02] MEDS: amLODIPine BESYLATE 5 MG TAB PO SCH (22:18)
[2016-12-02] MEDS: PREGABALIN 100 MG CAP PO SCH (22:18)
[2016-12-02] MEDS: ZOLPIDEM TARTRATE 5 MG TAB PO PRN (22:18)
[2016-12-03] MEDS: oxyCODONE IR 5 MG TAB PO PRN ×6 (02:23→21:33)
[2016-12-03 04:37] LABS: HEMATOCRIT 34.5 % (38.0-47.0); HEMOGLOBIN 11.5 g/dL (12.6-16.3); MEAN CELL HEMOGLOBIN 32.2 pg (27.9-34.1); MEAN CELL HEMOGLOBIN CONCENTR. 33.3 g/dL (32.4-36.7); MEAN CELL VOLUME 96.6 fL (81.5-99.8); RED BLOOD CELL COUNT 3.57 10^6/uL (4.18-5.33); RED CELL DISTRIBUTION WIDTH 13.5 % (11.5-15.2)
[2016-12-03] MEDS: CLINDAMYCIN 150 MG CAP PO SCH ×3 (06:14→21:34)
[2016-12-03] MEDS: LEVOTHYROXINE 125 MCG TAB PO SCH (06:14)
[2016-12-03] MEDS: NS 1,000 ML IV SCH (06:16)
[2016-12-03] MEDS: SUCRALFATE 1 GM/10 ML UDCUP PO SCH ×4 (08:16→23:30)
[2016-12-03] MEDS: RIVAROXABAN 20 MG TAB PO SCH (09:23)
[2016-12-03] MEDS: GABAPENTIN 400 MG CAP PO SCH (09:23)
[2016-12-03] MEDS: PANTOPRAZOLE SODIUM 40 MG TAB PO SCH ×2 (09:23→21:33)
[2016-12-03] MEDS: LISINOPRIL 40 MG TAB PO SCH (09:23)
[2016-12-03] MEDS: SENNOSIDES/DOCUSATE SODIUM TAB PO SCH ×2 (09:30→21:33)
--- NOTE | 2016-12-03 11:52 | HOSPPROG ---
Hospitalist Progress Note Assessment/Plan: # epigastric and RUQ pain-may be due to gastritis /esophagitis - or sphincter of Oddi dysfunction CT abdomen (personally reviewed and interpreted) without source of pain - cont Carafate and PPI - GI will not perform ERCP with sphincterotomy as could increase risk for pt # gastritis- given biliary gastric reflux- sx mildly improved today - cont PPI, start carafate # esophagitis- PPI- H&H stable this am # mild SOD on HIDA - if above treatments do not alleviate pain- still considering ERCP with sphincterotomy in future not now # odontogenic infection - clinda PO (allergy to pcn) # recent PE - changed from pradaxa to xarelto per patient request (she believes pradaxa caused GI sx) CT PE - no PE or infiltrates oxygen saturations 95% on 2L - cont Xarelto # CP - negative Jannie # fibromyalgia # htn - continue norvasc, lisinopril # hypothyroid - synthroid # proph - xarelto # diet - regular as tolerated # dispo - > 2MN as pt requiring therapies and monitoring for possible dc tomorrow I have discussed the case with RN and CM - we will work on preparation for dispo tomorrow Subjective: still no BM Objective: Vital Signs Temp Pulse Resp BP Pulse Ox 36.6 C 57 L 16 141/73 H 93 12/03/16 03:59 12/03/16 03:59 12/03/16 03:59 12/03/16 09:24 12/03/16 03:59 Laboratory Results 12/03/16 03:27 12/02/16 03:43 12/02/16 12/03/16 12/04/16 05:59 05:59 05:59 Intake Total 1000 1650 300 Balance 1000 1650 300 PT 15.9 SEC (12.0-15.0) H 11/26/16 06:30 INR 1.27 (0.83-1.16) H 11/26/16 06:30 - Physical Exam Constitutional: chronically ill appearing Eyes: anicteric sclera Ears, Nose, Mouth, Throat: moist mucous membranes Cardiovascular: regular rate and rhythym Respiratory: no respiratory distress, no rales or rhonchi Gastrointestinal: normoactive bowel sounds, tenderness, No rebound, No distension Genitourinary: no bladder fullness Skin: warm, normal color Musculoskeletal: No asymmetric calves Neurologic: AAOx3 Psychiatric: flat affect Lymph, Heme, Immunologic: no cervical LAD ICD10 Worksheet Patient Problems: Problems Problem Status Onset Acute chest pain Acute Hypoxia Acute Pancreatitis Acute Pulmonary emboli Acute
[2016-12-03] MEDS: BISACODYL 10 MG SUPP PR PRN (12:23)
--- NOTE | 2016-12-03 12:45 | SOAPPROG ---
SOAP Progress Note Assessment/Plan: Assessment: ABD pain better today. Suspect multifactorial with gastritis, bile reflux and NUD. Discussed may take a few weeks to heal gastritis. Consider SOD but dose not meet criteria for ERCP a this time. Plan: Continue PPI and Carafate REc smaller more frequent meals Anticipate D/C home tomorrow with GI outpt follow 12/03/16 12:42 Subjective: CC abd pain had bout of pain last night but better today. Objective: Vital Signs Temp Pulse Resp BP Pulse Ox 36.6 C 57 L 16 141/73 H 93 12/03/16 03:59 12/03/16 03:59 12/03/16 03:59 12/03/16 09:24 12/03/16 03:59 Laboratory Results 12/03/16 03:27 12/02/16 03:43 12/02/16 12/03/16 12/04/16 05:59 05:59 05:59 Intake Total 1000 1650 300 Balance 1000 1650 300 PT 15.9 SEC (12.0-15.0) H 11/26/16 06:30 INR 1.27 (0.83-1.16) H 11/26/16 06:30 Physical Exam - Physical Exam General Appearance: WD/WN Respiratory: lungs clear Cardiac/Chest: regular rate, rhythm Abdomen: soft, organomegaly ICD10 Worksheet Patient Problems: Problems Problem Status Onset Acute chest pain Acute Hypoxia Acute Pancreatitis Acute Pulmonary emboli Acute
[2016-12-03] MEDS: MAGNESIUM HYDROXIDE 30 ML UDCUP PO PRN (13:51)
[2016-12-03] MEDS: ACETAMINOPHEN 325 MG TAB PO PRN (16:23)
[2016-12-03 20:01] VITALS: RESP 16
[2016-12-03] MEDS: ZOLPIDEM TARTRATE 5 MG TAB PO PRN (21:33)
[2016-12-03] MEDS: PREGABALIN 100 MG CAP PO SCH (21:33)
[2016-12-03] MEDS: amLODIPine BESYLATE 5 MG TAB PO SCH (21:33)
[2016-12-04 04:40] LABS: ALANINE AMINOTRANSFERASE 24 IU/L (9-52); ALBUMIN 2.7 g/dL (3.5-5.0); ALKALINE PHOSPHATASE 100 IU/L (38-126); ANION GAP 5 mEq/L (8-16); ASPARTATE AMINOTRANSFERASE 16 IU/L (14-46); BILIRUBIN,TOTAL 0.5 mg/dL (0.1-1.4); CALCIUM 8.3 mg/dL (8.5-10.4); CARBON DIOXIDE 29 mEq/l (22-31); CHLORIDE 103 mEq/L (97-110); CREATININE 0.8 mg/dL (0.6-1.0); GLOMERULAR FILTRATION RATE > 60; GLUCOSE 97 mg/dL (70-100); POTASSIUM 4.4 mEq/L (3.5-5.2); SODIUM 137 mEq/L (134-144); TOTAL PROTEIN 4.9 g/dL (6.3-8.2)
[2016-12-04] MEDS: oxyCODONE IR 5 MG TAB PO PRN ×2 (05:43→09:45)
[2016-12-04] MEDS: CLINDAMYCIN 150 MG CAP PO SCH ×2 (05:44→13:00)
[2016-12-04] MEDS: LEVOTHYROXINE 125 MCG TAB PO SCH (05:44)
[2016-12-04] MEDS: MAGNESIUM HYDROXIDE 30 ML UDCUP PO PRN (05:49)
[2016-12-04 07:01] VITALS: BP 122/66; PULSE 56; TEMP 97.7; O2SAT 95
[2016-12-04] MEDS: SUCRALFATE 1 GM/10 ML UDCUP PO SCH ×2 (07:59→11:46)
[2016-12-04] MEDS: PANTOPRAZOLE SODIUM 40 MG TAB PO SCH (09:46)
[2016-12-04] MEDS: RIVAROXABAN 20 MG TAB PO SCH (09:46)
[2016-12-04] MEDS: BISACODYL 10 MG SUPP PR PRN (09:46)
[2016-12-04] MEDS: LISINOPRIL 40 MG TAB PO SCH (09:46)
[2016-12-04] MEDS: GABAPENTIN 400 MG CAP PO SCH (09:46)
[2016-12-04] MEDS: SENNOSIDES/DOCUSATE SODIUM TAB PO SCH (09:46)
--- NOTE | 2016-12-04 09:53 | PDIAF ---
- Diagnosis Diagnosis: gastritis/espophagitis- sphincter of Oddi dysfucntion Code Status: Full Code - Medication Management Discharge Medications: Medications to Continue on Transfer Lisinopril [Zestril 40 mg (*)] 40 mg PO DAILY 06/13/14 [Last Taken 11/25/16] amLODIPine BESYLATE [Norvasc 5 mg (*)] 5 mg PO HS 06/13/14 [Last Taken 11/24/16] Meloxicam [Mobic 7.5 mg] 7.5 mg PO HS 08/24/16 [Last Taken 11/24/16] Pregabalin [LYRICA] 200 mg PO HS 08/24/16 [Last Taken 11/24/16] Zolpidem Tartrate [Ambien 10 mg] 10 mg PO HS PRN 08/24/16 [Last Taken 11/24/16] Gabapentin 400 mg PO DAILY 11/26/16 [Last Taken 11/25/16] Levothyroxine Sodium 125 mcg PO DAILY@06 11/26/16 [Last Taken 11/25/16] clonIDINE [Catapres (*)] 0.1 mg PO BID 11/26/16 [Last Taken 11/25/16] Clindamycin 150 mg PO Q8HRS #10 cap 12/04/16 [Last Taken Unknown] Pantoprazole Sodium [Protonix 40mg (*)] 40 mg PO BID #60 tab 12/04/16 [Last Taken Unknown] Polyethylene Glycol 3350 [Miralax 17 gm (*)] 17 gm PO DAILY PRN #30 pkt [Last Taken Unknown] Rivaroxaban [Xarelto] 20 mg PO DAILY #30 tab 12/04/16 [Last Taken Unknown] Sennosides/Docusate Sodium [Senokot-S] 1 - 2 tab PO BID #60 tab 12/04/16 [Last Taken Unknown] Sucralfate 1 gm PO ACHS #120 tablet 12/04/16 [Last Taken Unknown] oxyCODONE IR [Oxycodone Ir (*)] 10 - 20 mg PO BID PRN #60 12/04/16 [Last Taken 11/25/16] Discharge Medications: Refer to the Discharge Home Medication list for PRN reason. - Orders Services needed: Home Care, Registered Nurse, Physical Therapy Home Care Face to Face: I certify that this patient was under my care and that I had the required [id number] encounter meeting the encounter requirements on the discharge day. My findings support the fact that the patient is homebound as defined in CMS Chapter 7 Medicare Benefits Manual 30.1.1, The condition of the patient is such that there exists a normal inability to leave home and consequently, leaving home would require a considerable and taxing effort. Diet Recommendation: cardiac -low fat low salt Diet Texture: Regular Texture Diet - Follow Up Care Current Providers and Referrals: JACOB GONZALEZ [Other] - As per Instructions Pankaj Abdul MD [Medical Doctor] - Soumya Jimenez MD [Primary Care Provider] - As per Instructions
[2016-12-04] MEDS: MAG HYDROX/AL HYDROX/SIMETH 30 ML UDCUP PO PRN (13:04)
--- NOTE | 2016-12-04 14:48 | GDS ---
[f rep st] DISCHARGE SUMMARY DISCHARGE DIAGNOSES: 1. Gastritis. 2. Esophagitis. 3. Mild sphincter of Oddi dysfunction. 4. Odontogenic infection, acute. 5. Recent pulmonary embolism. 6. Fibromyalgia. 7. Hypertension. 8. Hypothyroidism. 9. Chronic pain with continuous narcotics. HISTORY OF PRESENT ILLNESS: This is a 76-year-old female, who presents with complaints of right upp er quadrant pain. For details of patient's initial presentation, please see the history and physica l dated 11/25/2016. CONSULTATIVE SERVICES: Include Gastroenterology. PROCEDURES: On 11/27/2016, patient underwent EGD and biopsy, which showed esophagitis, gastritis, a nd a normal duodenum. On 11/30/2016, patient underwent HIDA scanning, which showed mild sphincter o f Oddi dysfunction. HOSPITAL COURSE: By issue: 1. Right upper quadrant pain. There is some assumption that the patient's symptoms are multifactor ial, gastritis, esophagitis, and mild sphincter of Oddi dysfunction. Patient was initiated on a pro ton pump inhibitor and Carafate, and is being discharged on these medications, [facility]. The prospect of re-EGD and sphincterotomy is possible, but it was felt inappropriate at this course in her therapy. The patient will be discharged to follow in the outpatient setting with GI of the [facility]. 2. Gastritis/esophagitis. The patient is being discharged on proton pump inhibitor twice a day. 3. Odontogenic infection, and patient will complete oral dose of clindamycin after disposition. 4. Recent pulmonary embolism. The patient wished to switch her anticoagulant to Xarelto, this was done, and will be continued at disposition. 5. Hypertension. She is continued on her Zestril, clonidine, amlodipine at disposition. 6. Hypothyroidism, patient is continued on levothyroxine. 7. Chronic pain. The patient was continued on gabapentin, oxycodone, Lyrica and Mobic at dispositi on. We believe this chronic use of narcotics is contributing to constipation, which is likely contr ibuting to her abdominal discomfort. We worked aggressively on treatment. 8. Constipation. Patient did effectively stool finally, prior to disposition. She is being discha rged on a more aggressive bowel regimen in the setting of chronic opioid use. MEDICATIONS AT THE TIME OF DISPOSITION: Please reference med rec printed on 12/04/2016. PENDING STUDIES: At the time of this dictation are none. FOLLOWUP APPOINTMENTS: The patient is being discharged with home health, PT, OT. She is to follow with GI of the [facility], as well as her primary care provider post disposition. I spent greater than 30 minutes in the planning and coordination of this discharge. /[id number]/MODL
== END 2016-12-04 13:08 | disposition home health service (06) | DRG 392 ==
LOC: F2W 11-26 00:47 → OBSVTOIN 11-27 19:32
PROVIDERS: ADMIT Student in an Organized Health Care Education/Training Program; ATTEND Hospitalist
PROC: 0DB18ZX Excision of Upper Esophagus, Via Natural or Artificial Opening Endoscopic, Diagnostic (ICD-10-PCS; principal; 2016-11-27 17:25)
PROC: 0DB68ZX Excision of Stomach, Via Natural or Artificial Opening Endoscopic, Diagnostic (ICD-10-PCS; principal; 2016-11-27 17:25)
PROC: 0DB38ZX Excision of Lower Esophagus, Via Natural or Artificial Opening Endoscopic, Diagnostic (ICD-10-PCS; principal; 2016-11-27 17:25)
DX: K29.70 Gastritis, unspecified, without bleeding (principal); K20.9 Esophagitis, unspecified; K83.8 Other specified diseases of biliary tract; I10 Essential (primary) hypertension; K21.9 Gastro-esophageal reflux disease without esophagitis; J45.909 Unspecified asthma, uncomplicated; E03.9 Hypothyroidism, unspecified; G47.33 Obstructive sleep apnea (adult) (pediatric); G89.29 Other chronic pain; F11.20 Opioid dependence, uncomplicated; Z86.711 Personal history of pulmonary embolism; Z79.01 Long term (current) use of anticoagulants
CPT/HCPCS: 82947-QW; 96374; 97116-GP; 97161-GP; 97162-GP; 97165-GO; 97530-GP; A9500; A9537; G0378; G8978-GP-CI; G8978-GP-CJ; G8979-GP-CI; G8980-GP-CI; G8987-GO-CI; G8988-GO-CI; G8989-GO-CI; J1650; J2250; J2405; J2785; J3010; Q9967

== ENCOUNTER 2016-12-09 16:32 | Emergency (ER) | payer OTHER, MEDICAID ==
--- NOTE | 2016-12-09 16:47 | EDPHY ---
H & P Time Seen by Provider: 12/09/16 17:00 HPI/ROS: CHIEF COMPLAINT: Abdominal pain HISTORY OF PRESENT ILLNESS: This patient is an anticoagulated 76 year old female who presents to the Emergency Department with an acute exacerbation of chronic abdominal pain worsening throughout today. She was recently admitted to the hospital on 11/26/2016 (discharged on December 04, 2016) for epigastric abdominal pain that was found to be secondary to gastritis, esophagitis, and sphincter of Oddi dysfunction. She was discharged home on omeprazole and Carafate for management. She was seen by Dr. Abdul today who suggested that her pain was likely secondary to the sphincter of Oddi dysfunction and recommended that she continue on her Carafate and omeprazole at home. Apparently EGD and sphincterotomy is being considered. She told him that she wanted to be hospitalized. After leaving his office and returning home she had a bout of nausea and vomiting and took it upon herself to come to the hospital. Upon arrival, she describes her pain as moderate to severe, associated with excessive sweating and nausea, and worsening over time. The pain is midepigastric. She denies any urinary complaints, fever or chills, or additional complaints. She reports compliance with her omeprazole and Carafate dosing today without improvement to her complaints. She last took oxycodone yesterday; she normally takes this BID for chronic pain. History also includes PE in 08/2016; she is currently taking Xarelto in the evening for anticoagulation but did not take this yet today. REVIEW OF SYSTEMS: A ten point review of systems was performed and is negative with the exception of the items mentioned in the HPI. Source: Patient, Old records Exam Limitations: No limitations - Personal History Tetanus Vaccine Date: within last 10 years - Medical/Surgical History PMH: Prior medical records reviewed, including recent admission on 11/25 for epigastric pain and subsequent discharge on 12/04. 1. PE (08/2016) - Xarelto 2. Gastritis, esophagitis (10/2016) 3. Sphincter of Oddi dysfunction (10/2016) 4. Fibromyalgia 5. Allergic rhinitis 6. Depression 7. Low back pain, chronic 8. GERD 9. Osteoarthritis 10. 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 Cholecystectomy 14. Right knee replacement 15. Hysterectomy 16. Carpal tunnel release 17. Cataract surgery 18. Right hip replacement 19. Small bowel obstruction 20. Obstructive sleep apnea Hx Asthma: Yes Hx Chronic Respiratory Disease: No Hx Diabetes: No Hx Cardiac Disease: No Hx Renal Disease: No Hx Cirrhosis: No Hx Alcoholism: No Hx HIV/AIDS: No Hx Splenectomy or Spleen Trauma: No Other PMH: pancreatitis, polyarteritis nodosa (IN REMISSION SINCE 2002), HTN, asthma, kidney stones, hysterectomy, cholecystectomy, appendectomy. tyrone, peripheral neruopathy, cataracts, phtn, rt knee replacement, fibermyalgia, pancreatic duct stricture, OA, hypothyroid, gerd, carpal tunnel release - Social History Smoking Status: Former smoker Additional Social History: - Denies tobacco use. No illicit drug use. Currently narcotic dependent. - Lives independently in a [facility]. - Physical Exam Exam: General Appearance: Alert. Appears in pain. Vital signs reviewed. Hypertensive at 169/81. Eyes: Pupils equal and round, no conjunctival injection, no discharge. Anicteric. ENT, Mouth: Mucous membranes are moist, no oropharyngeal erythema or edema. Neck: No lymphadenopathy, supple. Respiratory: Lungs are clear to auscultation; no wheezes, rales, or rhonchi. Cardiovascular: Regular rate and rhythm; no murmur, rub, or gallop. Gastrointestinal: Abdomen is soft, epigastric and RUQ tenderness to palpation, no guarding, no masses or organomegaly, bowel sounds normal. Skin: Warm and dry, no rashes on exposed skin, normal color. Back: Nontender to palpation over the thoracolumbar spine. No CVAT. Extremities: No lower extremity edema, no calf tenderness or swelling. Neurological: Alert and oriented. Moving all four extremities easily and equally. Psychiatric: Normal affect. Constitutional: Initial Vital Signs Temperature (C) 36.5 C 12/09/16 16:48 Heart Rate 80 12/09/16 16:48 Respiratory Rate 18 12/09/16 16:48 Blood Pressure 169/81 H 12/09/16 16:48 O2 Sat (%) 92 12/09/16 16:48 O2 Delivery Mode Room Air O2 (L/minute) 3 Allergies/Adverse Reactions: bupivacaine HCl [From Marcaine] Allergy (Severe, Verified 12/10/16 11:11) ASTHMA TYPE SYMPTOMS Sulfa (Sulfonamide Antibiotics) Allergy (Severe, Verified 12/10/16 11:11) ASTHMA SYMPTOMS tramadol HCl [From Ultram] Allergy (Severe, Verified 12/10/16 11:11) ASTHMA TYPE SYMPTOMS Penicillins Allergy (Intermediate, Verified 12/10/16 11:11) RASH, ASTHMA TYPE REACTION propoxyphene HCl [From Darvon] Allergy (Intermediate, Verified 12/10/16 11:11) Vomiting Home Medications: Medication Instructions Recorded Lisinopril [Zestril 40 mg (*)] 40 mg PO DAILY 06/13/14 amLODIPine BESYLATE [Norvasc 5 mg 5 mg PO HS 06/13/14 (*)] Meloxicam [Mobic 7.5 mg] 7.5 mg PO HS 08/24/16 Pregabalin [LYRICA] 200 mg PO HS 08/24/16 Zolpidem Tartrate [Ambien 10 mg] 10 mg PO HS PRN 08/24/16 Gabapentin 400 mg PO DAILY 11/26/16 Levothyroxine Sodium 62.5 mcg PO DAILY@06 11/26/16 clonIDINE [Catapres (*)] 0.1 mg PO BID 11/26/16 Clindamycin 150 mg PO Q8HRS #10 cap 12/04/16 Pantoprazole Sodium [Protonix 40mg 40 mg PO BID #60 tab 12/04/16 (*)] Polyethylene Glycol 3350 [Miralax 17 gm PO DAILY PRN #30 pkt 12/04/16 17 gm (*)] Rivaroxaban [Xarelto] 20 mg PO DAILY #30 tab 12/04/16 oxyCODONE IR [Oxycodone Ir (*)] 10 - 20 mg PO BID PRN #60 12/04/16 Omeprazole 40 mg PO BID 12/10/16 QUEtiapine FUMARATE [Seroquel 100 100 mg PO HS 12/10/16 mg (*)] Sennosides/Docusate Sodium 1 - 2 tab PO BID PRN 12/10/16 [Senokot-S] Sucralfate [Carafate Suspension] 1,000 mg PO ACHS 12/10/16 Medical Decision Making - Diagnostics EKG Interpretation: The 12 lead EKG was interpreted by myself: Sinus rhythm, rate 80; borderline T abnormalities in the inferior leads. See hard copy and/or "tracemaster" electronic copy for interpretation. ED Course/Re-evaluation: 76-year-old female with extensive medical history presents with complaint of worsening epigastric abdominal pain for which she was recently admitted at the end of last month. She was evaluated by Dr. Abdul, employment office clerk, today and reports that his suspected underlying sphincter of Oddi dysfunction as the source of her pain. She has remained compliant with at-home treatment without improvement, prompting her presentation. At time of arrival, she appears in pain and is hypertensive. Given that she has recently been worked up in the hospital for this pain, I will not proceed with any additional imaging at this time. EKG obtained, as above. IV established. 4mg IV Zofran administered for nausea and 5mg IV oxycodone administered for pain. The patient has been intermittently hypoxemic while sleeping in the ED and was placed on 2L via NC with improvement to her hypoxemia. 180: On reevaluation, the patient reports moderate improvement to her nausea and pain. He abdomen is non-tender at this time. She is 99% on O2 via NC. Will proceed with PO challenge. 1847: On reevaluation, the patient is resting comfortably. She remains asymptomatic. She is comfortable going home at this time and using the at-home treatment provided by her employment office clerk. She understands that she should use at-home oxygen while sleeping. Her room air pulse ox is 90% at discharge. She has continued to be hypertensive, this will be followed by her primary care physician. She will be discharged home in good condition with strict return precautions. I do not think that there is a new or acute problem. I think that this is the gastritis/esophagitis for which she was evaluated recently in the hospital. I am not recommending imaging or lab work tonight. She has oxycodone at home but did not take any today. She has a history of chronic pain and is narcotic dependent. It is possible that there is a component of narcotic withdrawal in tonight presentation. She and I discussed this. I also think that she has minimal social supports and became frightened and worried at home. Differential Diagnosis: I considered a differential diagnosis that includes but is not limited to gastritis/esophagitis, sphincter of Oddi dysfunction, bowel obstruction, pancreatitis, cholecystitis, urinary tract infection. - Data Points Medications Given: Discontinued Medications Ondansetron HCl (Zofran) 4 mg IVP EDNOW ONE Stop: 12/09/16 17:08 Last Admin: 12/09/16 17:50 Dose: 4 mg Oxycodone HCl (Oxycodone Ir) 5 mg PO EDNOW ONE Stop: 12/09/16 17:24 Last Admin: 12/09/16 17:50 Dose: 5 mg Departure - Departure Disposition: Home, Routine, Self-Care Clinical Impression: Gastritis Qualifiers: Gastritis type: unspecified gastritis Chronicity: chronic Gastritis bleeding: without bleeding Qualified Code(s): K29.50 - Unspecified chronic gastritis without bleeding Condition: Good Instructions: Gastritis (ED) Additional Instructions: 1. Continue to take all of your medications as prescribed by your employment office clerk and primary care provider. Make sure to use your at home oxygen when sleeping. 2. Follow-up with Dr. Abdul if your abdominal pain or nausea recurs over the next few days. 3. Return to the Emergency Department immediately if you experience severe abdominal pain, uncontrollable nausea or vomiting, blood in your vomit or stool , high fever or chills, or for other serious concerns. Referrals: Soumya Jimenez MD [Primary Care Provider] - As per Instructions Pankaj Abdul MD [Medical Doctor] - As per Instructions Report Scribed for: Rosita Babb Report Scribed by: Aliya Alaniz Date of Report: 12/09/16 Time of Report: 16:50 Physician Review and Approval Statement: 12/09/16 16:47 Portions of this note were transcribed by the medical equipment technician. I, Dr. Rosita Babb, personally performed the history, physical exam, and medical decision- making; and confirmed the accuracy of the information in the transcribed note.
--- NOTE | 2016-12-09 16:55 | CPEKG ---
Heart Rate: 80 RR Interval: 750 P-R Interval: 164 QRSD Interval: 86 QT Interval: 392 QTC Interval: 453 P [place]: 22 QRS [place]: -14 T Wave [place]: 1 EKG Severity - BORDERLINE ECG - EKG Impression: SINUS RHYTHM EKG Impression: BORDERLINE T ABNORMALITIES, INFERIOR LEADS Electronically Signed By: Rosita Babb 09-Dec-2016 18:32:29
[2016-12-09] MEDS ORDERED: ONDANSETRON 4 MG/2 ML VIAL IVP ONE (17:07)
[2016-12-09] MEDS ORDERED: oxyCODONE IR 5 MG TAB PO ONE (17:23)
[2016-12-09 19:24] VITALS: BP 165/86; PULSE 86; RESP 16; TEMP 98.4; O2SAT 90
== END 2016-12-09 19:25 | disposition home or self-care (01) ==
DX: K29.50 Unspecified chronic gastritis without bleeding (principal); I10 Essential (primary) hypertension; J45.909 Unspecified asthma, uncomplicated; Z79.01 Long term (current) use of anticoagulants; Z87.891 Personal history of nicotine dependence; Z90.49 Acquired absence of other specified parts of digestive tract; Z90.710 Acquired absence of both cervix and uterus
CPT/HCPCS: 93005; 96374; 99284; J2405

== ENCOUNTER 2016-12-10 10:57 | Inpatient (IN) | payer OTHER, MEDICAID ==
[2016-12-10] MEDS ORDERED: NS 1,000 ML IV ONE (11:41)
--- NOTE | 2016-12-10 11:41 | EDPHY ---
H & P Stated Complaint: seen corbin for same/dc last night continued epigastric pain Time Seen by Provider: 12/10/16 11:22 HPI/ROS: CHIEF COMPLAINT: Intractable abdominal pain, reported sphincter of Oddi dysfunction HISTORY OF PRESENT ILLNESS: The patient presents to the emergency department at the advice of her gastroenterology physician secondary to ongoing abdominal pain. The patient has had a recent admission to the hospital for abdominal pain and had a fairly extensive evaluation. She was diagnosed with likely sphincter of Oddi dysfunction. She was prescribed a number of medications including narcotics, a PPI and Carafate. The patient was seen in the ED yesterday at the advice of a intelligence research specialist and discharged home after receiving narcotic pain medications. She returns today she has developed recurrent severe abdominal pain, vomiting and generalized weakness. She is accompanied by her caregiver who states that the patient absolutely cannot go back home and needs to be readmitted to the hospital for further evaluation and pain management. Patient complains of a moderate to severe epigastric pain which radiates to her bilateral flanks. She denies fever, cough, congestion or additional acute complaints. REVIEW OF SYSTEMS: A comprehensive 10 point review of systems is otherwise negative aside from elements mentioned in the history of present illness. Source: Patient Exam Limitations: No limitations - Personal History Current Tetanus/Diphtheria Vaccine: Yes Tetanus Vaccine Date: within last 10 years - Medical/Surgical History Hx Asthma: Yes Hx Chronic Respiratory Disease: No Hx Diabetes: No Hx Cardiac Disease: No Hx Renal Disease: No Hx Cirrhosis: No Hx Alcoholism: No Hx HIV/AIDS: No Hx Splenectomy or Spleen Trauma: No Other PMH: pancreatitis, polyarteritis nodosa (IN REMISSION SINCE 2002), HTN, asthma, kidney stones, hysterectomy, cholecystectomy, appendectomy. tyrone, peripheral neruopathy, cataracts, phtn, rt knee replacement, fibermyalgia, pancreatic duct stricture, OA, hypothyroid, gerd, carpal tunnel release - Social History Smoking Status: Former smoker - Physical Exam Exam: General Appearance: Alert, no distress Eyes: Pupils equal and round no pallor or injection ENT, Mouth: Mucous membranes moist Respiratory: There are no retractions, lungs are clear to auscultation Cardiovascular: Regular rate and rhythm Gastrointestinal: Epigastric tenderness to palpation Neurological: A&O, normal motor function, normal sensory exam, normal cranial nerves Skin: Warm and dry, no rashes Musculoskeletal: Neck is supple nontender Extremities: symmetrical, full range of motion Constitutional: Initial Vital Signs Temperature (C) 36.7 C 12/10/16 11:11 Heart Rate 94 12/10/16 11:11 Respiratory Rate 18 12/10/16 11:11 Blood Pressure 153/93 H 12/10/16 11:11 O2 Sat (%) 88 L 12/10/16 11:11 O2 Delivery Mode Room Air Allergies/Adverse Reactions: bupivacaine HCl [From Marcaine] Allergy (Severe, Verified 12/10/16 11:11) ASTHMA TYPE SYMPTOMS Sulfa (Sulfonamide Antibiotics) Allergy (Severe, Verified 12/10/16 11:11) ASTHMA SYMPTOMS tramadol HCl [From Ultram] Allergy (Severe, Verified 12/10/16 11:11) ASTHMA TYPE SYMPTOMS Penicillins Allergy (Intermediate, Verified 12/10/16 11:11) RASH, ASTHMA TYPE REACTION propoxyphene HCl [From Darvon] Allergy (Intermediate, Verified 12/10/16 11:11) Vomiting Home Medications: Medication Instructions Recorded Lisinopril [Zestril 40 mg (*)] 40 mg PO DAILY 06/13/14 amLODIPine BESYLATE [Norvasc 5 mg 5 mg PO HS 06/13/14 (*)] Meloxicam [Mobic 7.5 mg] 7.5 mg PO HS 08/24/16 Pregabalin [LYRICA] 200 mg PO HS 08/24/16 Zolpidem Tartrate [Ambien 10 mg] 10 mg PO HS PRN 08/24/16 Gabapentin 400 mg PO DAILY 11/26/16 Levothyroxine Sodium 125 mcg PO DAILY@06 11/26/16 clonIDINE [Catapres (*)] 0.1 mg PO BID 11/26/16 Clindamycin 150 mg PO Q8HRS #10 cap 12/04/16 Pantoprazole Sodium [Protonix 40mg 40 mg PO BID #60 tab 12/04/16 (*)] Polyethylene Glycol 3350 [Miralax 17 gm PO DAILY PRN #30 pkt 12/04/16 17 gm (*)] Rivaroxaban [Xarelto] 20 mg PO DAILY #30 tab 12/04/16 Sennosides/Docusate Sodium 1 - 2 tab PO BID #60 tab 12/04/16 [Senokot-S] Sucralfate 1 gm PO ACHS #120 tablet 12/04/16 oxyCODONE IR [Oxycodone Ir (*)] 10 - 20 mg PO BID PRN #60 12/04/16 Carafate Oral Liquid 12/09/16 Omeprazole 12/09/16 QUEtiapine FUMARATE [Seroquel 100 100 mg PO DAILY 12/10/16 mg (*)] Medical Decision Making ED Course/Re-evaluation: I reviewed the patient's past medical records. The patient had an IV established. She received a L of normal saline. She received IV narcotic pain medications. I repeated the patient's laboratory studies in the continued to be within normal limits. The patient's caregiver are adamant that she be admitted to the hospital. The patient presents with a very difficult situation. She continues to be referred to the emergency department by her intelligence research specialist. The patient has on manage pain at home. At this point time I doubt there is a acute surgical process. Consultation was made with the hospitalist service for readmission. Differential Diagnosis: Differential diagnosis considered includes pancreatitis, cholecystitis, acute exacerbation of chronic abdominal pain - Data Points Laboratory Results: Laboratory Results 12/10/16 11:55 12/10/16 11:55 12/10/16 12/10/16 11:55 11:55 WBC 4.47 10^3/uL 10^3/uL (3.80-9.50) RBC 4.02 10^6/uL L 10^6/uL (4.18-5.33) Hgb 13.0 g/dL g/dL (12.6-16.3) Hct 38.6 % % (38.0-47.0) MCV 96.0 fL fL (81.5-99.8) MCH 32.3 pg pg (27.9-34.1) MCHC 33.7 g/dL g/dL (32.4-36.7) RDW 14.4 % % (11.5-15.2) Plt Count 197 10^3/uL 10^3/uL (150-400) MPV 10.5 fL fL (8.7-11.7) Neut % (Auto) 60.9 % % (39.3-74.2) Lymph % (Auto) 24.4 % % (15.0-45.0) [place] % (Auto) 12.3 % % (4.5-13.0) Eos % (Auto) 1.6 % % (0.6-7.6) Baso % (Auto) 0.4 % % (0.3-1.7) Nucleat RBC Rel Count 0.0 % % (0.0-0.2) Absolute Neuts (auto) 2.72 10^3/uL 10^3/uL (1.70-6.50) Absolute Lymphs (auto) 1.09 10^3/uL 10^3/uL (1.00-3.00) Absolute Monos (auto) 0.55 10^3/uL 10^3/uL (0.30-0.80) Absolute Eos (auto) 0.07 10^3/uL 10^3/uL (0.03-0.40) Absolute Basos (auto) 0.02 10^3/uL 10^3/uL (0.02-0.10) Absolute Nucleated RBC 0.00 10^3/uL 10^3/uL (0-0.01) Immature Gran % 0.4 % % (0.0-1.1) Immature Gran # 0.02 10^3/uL 10^3/uL (0.00-0.10) Sodium 136 mEq/L mEq/L (134-144) Potassium 4.2 mEq/L mEq/L (3.5-5.2) Chloride 102 mEq/L mEq/L (97-110) Carbon Dioxide 24 mEq/l mEq/l (22-31) Anion Gap 10 mEq/L mEq/L (8-16) BUN 11 mg/dL mg/dL (7-23) Creatinine 1.0 mg/dL mg/dL (0.6-1.0) Estimated GFR 54 Glucose 106 mg/dL H mg/dL (70-100) Calcium 8.7 mg/dL mg/dL (8.5-10.4) Total Bilirubin 1.2 mg/dL mg/dL (0.1-1.4) Conjugated Bilirubin 0.5 mg/dL mg/dL (0.0-0.5) Unconjugated Bilirubin 0.7 mg/dL mg/dL (0.0-1.1) AST 30 IU/L IU/L (14-46) ALT 31 IU/L IU/L (9-52) Alkaline Phosphatase 74 IU/L IU/L (38-126) Total Protein 6.2 g/dL L g/dL (6.3-8.2) Albumin 3.8 g/dL g/dL (3.5-5.0) Lipase 14.0 IU/L L IU/L (23-300) Medications Given: Discontinued Medications Sodium Chloride (Ns) 1,000 mls @ 0 mls/hr IV ONCE ONE; Wide Open PRN Reason: Protocol Stop: 12/10/16 11:42 Last Admin: 12/10/16 12:00 Dose: 1,000 mls Morphine Sulfate (Morphine) 4 mg IVP EDNOW ONE Stop: 12/10/16 11:59 Last Admin: 12/10/16 12:10 Dose: 4 mg Departure - Departure Disposition: [facility] Inpatient Acute Clinical Impression: Abdominal pain Condition: Good
[2016-12-10 12:05] LABS: % IMMATURE GRANULYOCYTES 0.4 % (0.0-1.1); ABSOLUTE IMMATURE GRANULOCYTES 0.02 10^3/uL (0.00-0.10); ADD DIFF? NO; ADD MORPH? NO; ADD SCAN? NO; ATYPICAL LYMPHOCYTE FLAG 0 (0-99); FRAGMENT RBC FLAG 0 (0-99); HEMATOCRIT 38.6 % (38.0-47.0); LEFT SHIFT FLG 0 (0-99); LIPEMIA HEMOLYSIS FLAG 80 (0-99); MEAN CELL HEMOGLOBIN 32.3 pg (27.9-34.1); MEAN CELL HEMOGLOBIN CONCENTR. 33.7 g/dL (32.4-36.7); MEAN PLATELET VOLUME 10.5 fL (8.7-11.7); PLATELET CLUMPS FLAG 10 (0-99); PLATELET COUNT 197 10^3/uL (150-400); RED BLOOD CELL COUNT 4.02 10^6/uL (4.18-5.33); RED CELL DISTRIBUTION WIDTH 14.4 % (11.5-15.2)
[2016-12-10 12:19] LABS: ALANINE AMINOTRANSFERASE 31 IU/L (9-52); ALBUMIN 3.8 g/dL (3.5-5.0); ALKALINE PHOSPHATASE 74 IU/L (38-126); ANION GAP 10 mEq/L (8-16); ASPARTATE AMINOTRANSFERASE 30 IU/L (14-46); BILIRUBIN,TOTAL 1.2 mg/dL (0.1-1.4); BILIRUBIN-CONJUGATED 0.5 mg/dL (0.0-0.5); BILIRUBIN-UNCONJUGATED 0.7 mg/dL (0.0-1.1); CALCIUM 8.7 mg/dL (8.5-10.4); CARBON DIOXIDE 24 mEq/l (22-31); CHLORIDE 102 mEq/L (97-110); GLOMERULAR FILTRATION RATE 54; GLUCOSE 106 mg/dL (70-100); POTASSIUM 4.2 mEq/L (3.5-5.2); SODIUM 136 mEq/L (134-144); TOTAL PROTEIN 6.2 g/dL (6.3-8.2)
[2016-12-10] MEDS ORDERED: ONDANSETRON DISINTEGRATING 4 MG TAB PO PRN (14:56)
[2016-12-10] MEDS ORDERED: ONDANSETRON 4 MG/2 ML VIAL IVP PRN (14:56)
[2016-12-10] MEDS ORDERED: NON-FORMULARY NEW DRUG (Zolpidem Tartrate [Ambien 10 Mg] 10 MG) PO PRN (15:39)
[2016-12-10] MEDS: oxyCODONE IR 5 MG TAB PO PRN ×2 (16:49→21:52)
[2016-12-10] MEDS: RIVAROXABAN 20 MG TAB PO SCH (16:49)
--- NOTE | 2016-12-10 17:13 | GHP ---
[f rep st] HISTORY AND PHYSICAL DATE OF ADMISSION: 12/10/2016 CHIEF COMPLAINT: Weakness, myalgias, abdominal pain. HISTORY OF PRESENT ILLNESS: Patient is a 76-year-old female with history of recently diagnosed gastritis, esophagitis, and mild sphincter of Oddi dysfunction, who was hospitalized at [facility] 11/27/16 through 12/04/16 with abdominal pain. Patient underwent EGD and biopsy on 11/27/16 that showed esophagitis, gastritis, and a normal duodenum. HIDA scan on 11/30 showed mild sphincter of Oddi dysfunction. She says she was feeling okay when she left the hospital but not her normal self. She has not been doing well as far as minimal p.o. intake due to retching and some nonbloody emesis. She has had increased episodes of loose stools 3 times that was brown. No blood or melena. Along with these retching episode, she has significant chills and drenching sweats to the point where she is shaking. Her epigastric pain has mildly worsened, mainly in the epigastric region with radiation to the right upper quadrant and wrapping around to the back. It feels burning, like she swallowed a volcano. This pain is mildly improved with Carafate. She has had daily headaches, myalgias, feeling pain in her joints, and mild dysuria. She feels like she has been run over by a [employer] truck. She lives at [facility] and does share a common cafeteria, so is exposed to many people. Of note, patient was seen in the emergency room yesterday with abdominal pain and nausea. She was tolerating p.o. and was discharged home. REVIEW OF SYSTEMS: I completed a 10-point review of systems, negative except as noted in HPI. PAST MEDICAL HISTORY: Gastritis, esophagitis, mild sphincter of Oddi dysfunction, recent odontogenic infection, recent PE, fibromyalgia, hypertension , hypothyroidism, chronic pain on chronic narcotics, constipation, GERD, pulmonary embolism was diagnosed in August 2016, pancreatitis, history of shingles, osteoarthritis, obesity, polyarteritis nodosa, hepatic artery aneurysm , small bowel obstruction, and NICOLE. Acute hypoxemic respiratory failure. PAST SURGICAL HISTORY: Bilateral knee replacements, right BETHANY, a Angelica fundoplication procedure, cholecystectomy, appendectomy, hysterectomy, carpal tunnel release, cataract surgery. FAMILY HISTORY: Multiple members with early coronary artery disease. SOCIAL HISTORY: She lives alone in [facility]. No alcohol, tobacco, or illicits. No family in town but has close friends. ALLERGIES: Penicillin, sulfa, Ultram, Marcaine, bupivacaine, tramadol, Darvon. HOME MEDICATIONS: Omeprazole 40 mg b.i.d.; Carafate 1000 mg a.c., h.s.; oxycodone 10-20 mg b.i.d. p.r.n.; Ambien 10; senna; Xarelto 20; Lyrica 200; MiraLAX; Protonix 40 b.i.d.; Seroquel 100 q.h.s.; meloxicam 7.5 q.h.s.; lisinopril 40; levothyroxine 62.5 mcg; clonidine 0.1 mg b.i.d.; gabapentin 400 daily; clindamycin; Norvasc. PHYSICAL EXAMINATION: VITAL SIGNS: Temperature is 36.9, blood pressure 152/71 , heart rate 78, respirations 16, 94% on 3 L. ASSESSMENT AND PLAN: 1. Abdominal pain: It appears the pain is pretty similar to her last hospital stay. EGD in October revealed esophagitis, gastritis, and mild sphincter of Oddi dysfunction. I will continue her Carafate and Protonix. Query if there is underlying viral illness that is exacerbating these symptoms as she has been complaining of myalgias, chills, sweats. I will check a GI panel, has been recently on antibiotics, as well as respiratory culture and a UA. Her labs are within normal. She is afebrile. 2. Depression: Continue home medications. 3. Chronic back pain: Continue home medications. Will hold the bowel regimen until we see her GI panel. 4. Gastroesophageal reflux disease: PPI, carafate, 5. Constipation: This might be contributing to her abdominal pain given the amount of medications she is taking at home. 6. Hypothyroidism: Synthroid. 7. Pulmonary embolism diagnosed in August: Continue Xarelto. 8. Chronic hypoxemic respiratory failure: Likely a combination of obstructive sleep apnea with blood clots. 9. Weakness: No electrolyte derangements. Again, suspect a possible underlying viral infection. Evaluation as stated above. Will have PT evaluate. 10. Diet: Regular. IV fluids. 11. Deep vein thrombosis prophylaxis: On Xarelto. DISPOSITION: Patient warrants inpatient admission given acute weakness, at risk for fall and subsequent harm. Will continue IV fluids and infectious evaluation. /[id number]/MODL MTDD
[2016-12-10] MEDS: NS 1,000 ML IV SCH (18:02)
[2016-12-10] MEDS: SUCRALFATE 100 MG/ML UDSYR PO SCH ×2 (18:45→20:45)
[2016-12-10 19:12] LABS: COLOR PALE YELLOW; LEUKOCYTE ESTERASE,URINE NEGATIVE (NEGATIVE); NITRITE,URINE NEGATIVE (NEGATIVE)
[2016-12-10] MEDS: PANTOPRAZOLE SODIUM 40 MG TAB PO SCH (20:45)
[2016-12-10] MEDS: QUEtiapine FUMARATE 100 MG TAB PO SCH (20:45)
[2016-12-10] MEDS: amLODIPine BESYLATE 5 MG TAB PO SCH (20:45)
[2016-12-10] MEDS: PREGABALIN 100 MG CAP PO SCH (20:45)
[2016-12-10] MEDS: MELOXICAM 7.5 MG PO SCH (20:46)
[2016-12-10] MEDS ORDERED: NON-FORMULARY NEW DRUG (Pregabalin [Lyrica] 200 MG) PO SCH (21:00)
[2016-12-10] MEDS: ZOLPIDEM TARTRATE 5 MG TAB PO PRN (21:52)
[2016-12-11] MEDS: ACETAMINOPHEN 325 MG TAB PO PRN ×2 (00:13→23:59)
[2016-12-11] MEDS: NS 1,000 ML IV SCH ×2 (00:14→13:18)
[2016-12-11] MEDS: oxyCODONE IR 5 MG TAB PO PRN ×5 (05:19→21:25)
[2016-12-11] MEDS: LEVOTHYROXINE 125 MCG TAB PO SCH (05:20)
[2016-12-11 06:04] LABS: ANION GAP 6 mEq/L (8-16); CALCIUM 8.6 mg/dL (8.5-10.4); CARBON DIOXIDE 26 mEq/l (22-31); CHLORIDE 108 mEq/L (97-110); CREATININE 0.9 mg/dL (0.6-1.0); GLOMERULAR FILTRATION RATE > 60; GLUCOSE 83 mg/dL (70-100); SODIUM 140 mEq/L (134-144)
[2016-12-11] MEDS: LISINOPRIL 40 MG TAB PO SCH (07:53)
[2016-12-11] MEDS: PANTOPRAZOLE SODIUM 40 MG TAB PO SCH ×2 (07:53→20:54)
[2016-12-11] MEDS: GABAPENTIN 400 MG CAP PO SCH (07:54)
[2016-12-11] MEDS: RIVAROXABAN 20 MG TAB PO SCH (07:54)
[2016-12-11] MEDS: SUCRALFATE 100 MG/ML UDSYR PO SCH ×2 (09:11→16:33)
[2016-12-11] MEDS ORDERED: SUCRALFATE 1 GM/10 ML UDCUP PO SCH (12:15)
--- NOTE | 2016-12-11 16:57 | HOSPPROG ---
Hospitalist Progress Note Assessment/Plan: #Abd pain: unchanged -GI PCR negative. Due to esophagitis/gastritis on recent EGD. Possible SOD. Would cont PPI, carafate that were just started. Don't think ERCP warranted now with such short trial of these meds #Chronic pain: cont home meds #Weakness: no infectious source. PT #PE: Xarelto #Hypothyroid: LT4 #Constipation: bowel reg #Diet: reg #DVT ppx: Xarelto #Disp: cont inpt admission, awaiting PT clearance Subjective: abd pain unchanged Objective: Vital Signs Temp Pulse Resp BP Pulse Ox 36.9 C 65 16 151/75 H 93 12/11/16 15:39 12/11/16 15:39 12/11/16 15:39 12/11/16 15:39 12/11/16 15:39 Microbiology 12/10/16 21:50 Respiratory Panel (PCR) - Final Nasal, Sinus - [place] Viral Transport No Organism Detected 12/10/16 18:40 Gastrointestinal Tract Panel (PCR) - Final Stool No Organism Detected Laboratory Results 12/11/16 05:17 12/10/16 12/11/16 12/12/16 05:59 05:59 05:59 Intake Total 1000 Balance 1000 - Physical Exam Constitutional: no apparent distress Eyes: PERRL Ears, Nose, Mouth, Throat: moist mucous membranes Cardiovascular: regular rate and rhythym, no murmur, rub, or gallop Respiratory: no respiratory distress, no rales or rhonchi Gastrointestinal: normoactive bowel sounds, other (epigastric TTP) Genitourinary: no bladder fullness Skin: warm Musculoskeletal: full muscle strength, no muscle tenderness Neurologic: AAOx3, CN II-XII Intact Psychiatric: interacting appropriately ICD10 Worksheet Patient Problems: Problems Problem Status Onset Abdominal pain Acute Acute chest pain Acute Gastritis Acute Hypoxia Acute Pancreatitis Acute Pulmonary emboli Acute
[2016-12-11] MEDS: SUCRALFATE 1 GM/10 ML UDCUP PO SCH ×2 (18:23→20:58)
[2016-12-11] MEDS: QUEtiapine FUMARATE 100 MG TAB PO SCH (20:54)
[2016-12-11] MEDS: ZOLPIDEM TARTRATE 5 MG TAB PO PRN (20:54)
[2016-12-11] MEDS: amLODIPine BESYLATE 5 MG TAB PO SCH (20:54)
[2016-12-11] MEDS: PREGABALIN 100 MG CAP PO SCH (20:54)
[2016-12-11] MEDS: MELOXICAM 7.5 MG PO SCH (21:45)
[2016-12-12] MEDS: oxyCODONE IR 5 MG TAB PO PRN ×5 (04:33→21:18)
[2016-12-12] MEDS: LEVOTHYROXINE 125 MCG TAB PO SCH (05:30)
[2016-12-12] MEDS: SUCRALFATE 1 GM/10 ML UDCUP PO SCH ×4 (10:31→20:58)
[2016-12-12] MEDS: PANTOPRAZOLE SODIUM 40 MG TAB PO SCH ×2 (10:32→20:58)
[2016-12-12] MEDS: GABAPENTIN 400 MG CAP PO SCH (10:32)
[2016-12-12] MEDS: LISINOPRIL 40 MG TAB PO SCH (10:33)
[2016-12-12] MEDS: RIVAROXABAN 20 MG TAB PO SCH (10:33)
--- NOTE | 2016-12-12 11:03 | HOSPPROG ---
Hospitalist Progress Note Assessment/Plan: # abd pain: SOD vs gastritis vs carafate - GI eval today - discussed with Dr Casey # gastritis with biliary reflux on HIDA - carafate and PPI # esophagitis - PPI # fever? - GI panel and resp panel negative # mild SOD on HIDA - GI eval for consideration of ERCP with sphincterotomy; c/b Xarelto - holding for now # PE, 08/2016 - will hold xarelto - check US to help eval safety of holding AC at this time # chronic pain - home meds # hypothyroid - synthroid Subjective: ongoin abd pain, mostly RUQ; worse with eating; also c/o bilat arm burning Objective: Vital Signs Temp Pulse Resp BP Pulse Ox 36.3 C 58 L 14 156/83 H 90 L 12/12/16 07:32 12/12/16 07:32 12/12/16 07:32 12/12/16 07:32 12/12/16 07:32 Microbiology 12/10/16 21:50 Respiratory Panel (PCR) - Final Nasal, Sinus - [place] Viral Transport No Organism Detected 12/10/16 18:40 Gastrointestinal Tract Panel (PCR) - Final Stool No Organism Detected Laboratory Results 12/11/16 05:17 12/11/16 12/12/16 12/13/16 05:59 05:59 05:59 Intake Total 1000 Balance 1000 chart reviewed discussed with Dr Abdul - he will consult - Physical Exam Constitutional: no apparent distress, appears nourished Cardiovascular: regular rate and rhythym, no murmur, rub, or gallop Respiratory: no respiratory distress, no rales or rhonchi, clear to auscultation Gastrointestinal: normoactive bowel sounds, other (mild RUQ TTP; soft, no guarding or rebound; no distension) ICD10 Worksheet Patient Problems: Problems Problem Status Onset Pancreatitis Acute Pulmonary emboli Acute Hypoxia Acute Acute chest pain Acute Gastritis Acute Abdominal pain Acute
[2016-12-12] MEDS: ACETAMINOPHEN 325 MG TAB PO PRN (15:30)
[2016-12-12] MEDS: amLODIPine BESYLATE 5 MG TAB PO SCH (20:55)
[2016-12-12] MEDS: QUEtiapine FUMARATE 100 MG TAB PO SCH (20:58)
[2016-12-12] MEDS: PREGABALIN 100 MG CAP PO SCH (20:58)
[2016-12-12] MEDS: ZOLPIDEM TARTRATE 5 MG TAB PO PRN (20:58)
[2016-12-12] MEDS: MELOXICAM 7.5 MG PO SCH (22:16)
[2016-12-13] MEDS: oxyCODONE IR 5 MG TAB PO PRN ×5 (01:21→21:32)
[2016-12-13] MEDS: LEVOTHYROXINE 125 MCG TAB PO SCH (05:25)
[2016-12-13 06:05] LABS: INR 1.3 (0.83-1.16); PROTIME(PATIENT) 16.2 SEC (12.0-15.0)
[2016-12-13 06:18] LABS: ALANINE AMINOTRANSFERASE 29 IU/L (9-52); ALBUMIN 3.4 g/dL (3.5-5.0); ALKALINE PHOSPHATASE 84 IU/L (38-126); ANION GAP 6 mEq/L (8-16); ASPARTATE AMINOTRANSFERASE 20 IU/L (14-46); BILIRUBIN,TOTAL 0.6 mg/dL (0.1-1.4); CALCIUM 9.2 mg/dL (8.5-10.4); CARBON DIOXIDE 27 mEq/l (22-31); CHLORIDE 103 mEq/L (97-110); GLOMERULAR FILTRATION RATE 54; GLUCOSE 93 mg/dL (70-100); POTASSIUM 4.6 mEq/L (3.5-5.2); SODIUM 136 mEq/L (134-144); TOTAL PROTEIN 5.6 g/dL (6.3-8.2)
--- NOTE | 2016-12-13 08:16 | SOAPPROG ---
[facility] Progress Note Assessment/Plan: Assessment: Plan: 12/13/16 08:12 A/P 1. Abdominal pain- midepigastrium. Not improved on PPI therapy and Carafate. Will consider trial of hyoscyamine. Xarelto was held yesterday. Did have a prior HIDA scan which did show evidence of sphincter of oddi dysfunction. I had a long discussion with the patient regarding risks and benefits of EUS/ ERCP. I did discuss that the risk of pancreatitis is around 20% and this could be life-threatening. If she does not improve, she would like to proceed with evaluation. Due to her obstructive sleep apnea, she is also an increased risk of sedation as well as bleeding since we will have to restart this Xarelto after the procedure. We will plan on procedure tomorrow morning. Keep npo after midnight. Subjective: Chief complaint: Abdominal pain Not improving. Frustrated. Objective: Vital Signs Temp Pulse Resp BP Pulse Ox 36.6 C 59 L 16 92/47 L 84 L 12/13/16 00:00 12/13/16 00:00 12/13/16 00:00 12/13/16 00:00 12/13/16 00:00 Laboratory Results 12/13/16 05:43 12/12/16 12/13/16 12/14/16 05:59 05:59 05:59 Intake Total 300 Balance 300 PT 16.2 SEC (12.0-15.0) H 12/13/16 05:43 INR 1.30 (0.83-1.16) H 12/13/16 05:43 Physical Exam - Physical Exam General Appearance: alert, no apparent distress EENT: No scleral icterus (R), No scleral icterus (L) Respiratory: lungs clear, normal breath sounds, No decreased breath sounds, No rales, No rhonchi Cardiac/Chest: regular rate, rhythm, No diastolic murmur, No systolic murmur, No irregularly irregular Abdomen: soft, No non-tender (tender in RUQ), No distended, No guarding, No rebound, No hepatomegaly, No splenomegaly Skin: normal color, warm/dry, No jaundice Extremities: normal inspection Neuro/Psych: alert, normal mood/affect, oriented x 3, 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
[2016-12-13] MEDS: ACETAMINOPHEN 325 MG TAB PO PRN (09:01)
[2016-12-13] MEDS: LISINOPRIL 40 MG TAB PO SCH (09:01)
[2016-12-13] MEDS: GABAPENTIN 400 MG CAP PO SCH (09:01)
[2016-12-13] MEDS: SUCRALFATE 1 GM/10 ML UDCUP PO SCH ×4 (09:01→21:29)
[2016-12-13] MEDS: PANTOPRAZOLE SODIUM 40 MG TAB PO SCH ×2 (09:02→21:29)
--- NOTE | 2016-12-13 10:17 | GCON ---
[f rep st] CONSULTATION DATE OF CONSULTATION: 12/12/2016 REQUESTING PHYSICIAN: Cristi Odom MD REASON FOR CONSULTATION: Abdominal pain. CHIEF COMPLAINT: Abdominal pain. HISTORY OF PRESENT ILLNESS: The patient is a 76-year-old female with multiple medical problems including a prior cholecystectomy, pancreatitis, hypertension, obstructive sleep apnea, pulmonary embolus who presents to [facility] with complains of significant abdominal pain. Sharla was recently admitted to [facility] with complaints of an epigastric abdominal pain/right upper quadrant abdominal pain. She describes the pain as a sharp pain with radiation to her back. She feels the pain is similar to a prior episode of pancreatitis. She states the pain also radiates down to her arms and is burning in nature. The pain is exacerbated by oral intake and alleviated when she decreases her oral intake. During her prior stay, she had blood work including liver function tests and pancreatic enzymes which were negative. She had a CT scan performed on 11/25/2016 with IV contrast which revealed no obvious cause of the pain. She also had an EGD on 11/27/2016 and no cause found. She had a HIDA scan on 11/30/2016 which revealed poor clearing of the contrast from the biliary tree and, according to the sphincter of Oddi scoring system, was noted to have significant dysfunction. The patient was discharged at that time, with some relief of her symptoms with PPI therapy as well as Carafate for presumed gastritis. Unfortunately, after discharge, she had an increase in her pain. She is still experiencing a burning pain in the epigastric area which radiates to her arms, her neck. Her symptoms last hours and are still exacerbated by oral intake with no significant alleviating factors except not eating. Due to this pain, she presented again to [facility] for further evaluation. On workup, blood work, including liver function tests and pancreatic enzymes have been fairly unrevealing. I am being asked by Dr. Odom to see Sharla in consultation regarding her abdominal pain. PAST MEDICAL HISTORY: Pulmonary embolus, fibromyalgia, hypertension, hypothyroidism, chronic pain, gastroesophageal reflux disease, pancreatitis, shingles, osteoarthritis, small-bowel obstruction, obstructive sleep apnea. PAST SURGICAL HISTORY: Cholecystectomy, Angelica fundoplication, bilateral knee replacements, appendectomy, hysterectomy, carpal tunnel release. MEDICATIONS: Omeprazole 40 mg b.i.d., Carafate, oxycodone p.r.n., Ambien 10 mg , Xarelto 20 mg a day, Lyrica 200 mg a day, MiraLAX, Seroquel 100 mg a day, Meloxicam 7.5 mg a day, lisinopril 40 mg a day, levothyroxine 62.5 mcg, clonidine 0.1 mg b.i.d., gabapentin. ALLERGIES: Penicillin, sulfa, Ultram, Marcaine, bupivacaine, tramadol, Darvon. SOCIAL HISTORY: Lives alone. No significant alcohol or tobacco use. FAMILY HISTORY: Coronary artery disease. REVIEW OF SYSTEMS: A 14-point comprehensive review of systems was asked. Pertinent positives and negatives per HPI. PHYSICAL EXAMINATION: VITALS: Blood pressure 156/83, heart rate 58, temperature 36.3, respiration 14. GENERAL: Awake, alert, and oriented x3. Patient in no distress. HEENT: Anicteric sclerae. Moist mucosa. NECK: No JVD. CARDIOVASCULAR: Regular rhythm. Positive S1, S2. No murmurs or gallops appreciated. LUNGS: Clear to auscultation bilaterally. No wheezes, rales, or rhonchi. ABDOMEN: Soft. Mild tenderness in the right upper quadrant. No guarding or rebound. No hepatosplenomegaly noted. EXTREMITIES: No clubbing, cyanosis, edema. NEUROLOGIC: 2 through 12 grossly intact. PSYCH: Normal affect. SKIN: Warm. MUSCULOSKELETAL: No obvious joint effusions. BLOOD WORK/IMAGING: Please see HPI. ASSESSMENT AND PLAN: 1. Abdominal pain- midepigastric and right upper quadrant with radiation to the back. Did have a HIDA scan, which did reveal the possibility of sphincter of Oddi dysfunction. CT scan and recent EGD unrevealing for cause of pain. She has not been clinically improving on conservative care. I had a long discussion with her regarding the risks and benefits of EUS/ERCP for possible sphincter of Oddi dysfunction. She is a high risk patient, with the risk of pancreatitis greater than 15% due to her having normal liver function tests. She is also at increased risk of sedation due to her multiple medical problems including obstructive sleep apnea. We will see how she does on conservative care and if no improvement, may consider proceeding with the EUS/ERCP. Continue to hold Xarelto. 2. Obstructive sleep apnea. 3. Fibromyalgia. 4. Pulmonary embolus. 5. Hypothyroidism. 6. Hypertension. 7. Chronic pain. Thank you very much for this consultation. /[id number]/MODL MTDD
--- NOTE | 2016-12-13 12:26 | HOSPPROG ---
Hospitalist Progress Note Assessment/Plan: # abd pain: SOD vs gastritis vs carafate - ERCP tomorrow with sphincterotomy # gastritis with biliary reflux on HIDA - carafate and PPI # esophagitis - PPI # fever? - GI panel and resp panel negative # mild SOD on HIDA - GI eval for consideration of ERCP with sphincterotomy; c/b Xarelto - holding for now # PE, 08/2016 - hold xarelto with pending ERCP - US pending # chronic pain - home meds # hypothyroid - synthroid Subjective: ongoing abd pain Objective: Vital Signs Temp Pulse Resp BP Pulse Ox 36.3 C 52 L 16 120/61 86 L 12/13/16 08:00 12/13/16 08:00 12/13/16 08:00 12/13/16 08:00 12/13/16 08:00 Laboratory Results 12/13/16 05:43 12/12/16 12/13/16 12/14/16 05:59 05:59 05:59 Intake Total 300 Balance 300 PT 16.2 SEC (12.0-15.0) H 12/13/16 05:43 INR 1.30 (0.83-1.16) H 12/13/16 05:43 chart reviewed discussed with Dr Abdul - ERCP tomorrow - Physical Exam Constitutional: no apparent distress, appears nourished Cardiovascular: regular rate and rhythym, no murmur, rub, or gallop Respiratory: no respiratory distress, no rales or rhonchi, clear to auscultation Gastrointestinal: normoactive bowel sounds, no palpable masses, other (soft, mild RUQ TTP) ICD10 Worksheet Patient Problems: Problems Problem Status Onset Pancreatitis Acute Pulmonary emboli Acute Hypoxia Acute Acute chest pain Acute Gastritis Acute Abdominal pain Acute
[2016-12-13] MEDS: QUEtiapine FUMARATE 100 MG TAB PO SCH (21:28)
[2016-12-13] MEDS: PREGABALIN 100 MG CAP PO SCH (21:29)
[2016-12-13] MEDS: amLODIPine BESYLATE 5 MG TAB PO SCH (21:30)
[2016-12-13] MEDS: MELOXICAM 7.5 MG PO SCH (21:34)
[2016-12-14] MEDS: oxyCODONE IR 5 MG TAB PO PRN ×3 (01:37→23:03)
[2016-12-14] MEDS: GABAPENTIN 400 MG CAP PO SCH (08:52)
[2016-12-14] MEDS: LISINOPRIL 40 MG TAB PO SCH (08:52)
[2016-12-14] MEDS: PANTOPRAZOLE SODIUM 40 MG TAB PO SCH ×2 (08:52→20:04)
--- NOTE | 2016-12-14 08:53 | HOSPPROG ---
Hospitalist Progress Note Assessment/Plan: # abd pain: SOD vs gastritis vs carafate - ERCP today with sphincterotomy by Dr Abdul # gastritis with biliary reflux on HIDA - carafate and PPI # esophagitis - PPI # fever? - GI panel and resp panel negative # mild SOD on HIDA - ERCP as above today # PE, 08/2016 - hold xarelto with pending ERCP - US still not read for unclear reasons - appears a problem with PACS; will not likely manager of change at this point # chronic pain - home meds # hypothyroid - synthroid Subjective: ongoing abd pain, RUQ Objective: Vital Signs Temp Pulse Resp BP Pulse Ox 36.5 C 53 L 16 132/72 H 95 12/14/16 08:00 12/14/16 08:00 12/14/16 08:00 12/14/16 08:00 12/14/16 08:00 Laboratory Results 12/13/16 05:43 12/13/16 12/14/16 12/15/16 05:59 05:59 05:59 Intake Total 300 750 Balance 300 750 PT 16.2 SEC (12.0-15.0) H 12/13/16 05:43 INR 1.30 (0.83-1.16) H 12/13/16 05:43 - Physical Exam Constitutional: no apparent distress, other (lying in bed) Cardiovascular: regular rate and rhythym, no murmur, rub, or gallop Respiratory: no respiratory distress, no rales or rhonchi, clear to auscultation Gastrointestinal: normoactive bowel sounds, other (soft, TTP RUQ), No hepatosplenomegally, No guarding, No rebound, No distension ICD10 Worksheet Patient Problems: Problems Problem Status Onset Pancreatitis Acute Pulmonary emboli Acute Hypoxia Acute Acute chest pain Acute Gastritis Acute Abdominal pain Acute
[2016-12-14] MEDS: LEVOTHYROXINE 125 MCG TAB PO SCH (08:56)
[2016-12-14] MEDS: SUCRALFATE 1 GM/10 ML UDCUP PO SCH ×4 (09:11→20:03)
[2016-12-14] MEDS ORDERED: LR 1,000 ML IV ONE (09:28)
[2016-12-14] MEDS ORDERED: GLUCAGON,HUMAN RECOMBINANT 1 MG VIAL ONE (09:48)
[2016-12-14] MEDS ORDERED: IOTHALAMATE MEG (CONRAY) 50 ML VIAL IV ONE (09:48)
[2016-12-14] MEDS ORDERED: INDOMETHACIN 50 MG SUPP PR ONE (10:21)
[2016-12-14] MEDS ORDERED: ROCURONIUM 50 MG/5 ML VIAL ONE (10:21)
[2016-12-14] MEDS ORDERED: DEXAMETHASONE 4 MG/ML VIAL ONE (10:21)
[2016-12-14] MEDS ORDERED: fentaNYL 100 MCG/2 ML INJ ONE ×4 (10:21→12:16)
[2016-12-14] MEDS ORDERED: PROPOFOL 200 MG/20 ML VIAL ONE (10:21)
[2016-12-14] MEDS ORDERED: LIDOCAINE 2% 100 MG/5 ML SYR ONE (10:21)
[2016-12-14] MEDS ORDERED: levOFLOXACIN 500 MG/DEXTROSE 100 ML IV ONE (10:22)
--- NOTE | 2016-12-14 10:50 | PDANEPAE ---
ANE Past Medical History - Cardiovascular History Hx Hypertension: Yes Hx Arrhythmias: No Hx Coronary Artery / Peripheral Vascular Disease: No Hx CHF / Valvular Disease: No - Pulmonary History Hx COPD: No Hx Asthma/Reactive Airway Disease: No Hx Recent Upper Respiratory Infection: No Hx Oxygen in Use at Home: Yes O2 in Use at Home (L/minute): 2.5 - Neurologic History Hx Cerebrovascular Accident: No Hx Seizures: No Hx Dementia: No - Endocrine History Hx Diabetes: No - Renal History Hx Renal Disorders: No - Liver History Hx Hepatic Disorders: No - Neurological & Psychiatric Hx Hx Neurological and Psychiatric Disorders: No - Cancer History Hx Cancer: No - Congenital Disorder History Hx Congenital Disorders: No - GI History Hx Gastrointestinal Disorders: Yes - Chronic Pain History Chronic Pain: Yes (fibromyalgia) ANE Patient History - Allergies Allergies/Adverse Reactions: bupivacaine HCl [From Marcaine] Allergy (Severe, Verified 12/10/16 11:11) ASTHMA TYPE SYMPTOMS Sulfa (Sulfonamide Antibiotics) Allergy (Severe, Verified 12/10/16 11:11) ASTHMA SYMPTOMS tramadol HCl [From Ultram] Allergy (Severe, Verified 12/10/16 11:11) ASTHMA TYPE SYMPTOMS Penicillins Allergy (Intermediate, Verified 12/10/16 11:11) RASH, ASTHMA TYPE REACTION propoxyphene HCl [From Darvon] Allergy (Intermediate, Verified 12/10/16 11:11) Vomiting - Home Medications Home Medications: Lisinopril [Zestril 40 mg (*)] 40 mg PO DAILY 06/13/14 [Last Taken 12/09/16] amLODIPine BESYLATE [Norvasc 5 mg (*)] 5 mg PO HS 06/13/14 [Last Taken 12/09/16] Meloxicam [Mobic 7.5 mg] 7.5 mg PO HS 08/24/16 [Last Taken 12/09/16] Pregabalin [LYRICA] 200 mg PO HS 08/24/16 [Last Taken 12/09/16] Zolpidem Tartrate [Ambien 10 mg] 10 mg PO HS PRN 08/24/16 [Last Taken 11/24/16] Gabapentin 400 mg PO DAILY 11/26/16 [Last Taken 12/09/16] Levothyroxine Sodium 62.5 mcg PO DAILY@11/26/16 [Last Taken 12/10/16] clonIDINE [Catapres (*)] 0.1 mg PO BID 11/26/16 [Last Taken 12/09/16] Omeprazole 40 mg PO BID 12/10/16 [Last Taken 12/09/16] QUEtiapine FUMARATE [Seroquel 100 mg (*)] 100 mg PO HS 12/10/16 [Last Taken 03/19] Sennosides/Docusate Sodium [Senokot-S] 1 - 2 tab PO BID PRN 12/10/16 [Last Taken 12/09/16] Sucralfate [Carafate Suspension] 1,000 mg PO ACHS 12/10/16 [Last Taken 12/09/16] - NPO status NPO Since - Liquids (Date): 12/14/16 NPO Since - Liquids (Time): 00:00 NPO Since - Solids (Date): 12/14/16 NPO Since - Solids (Time): 00:00 - Smoking Hx Smoking Status: Former smoker - Family Anes Hx Family Hx Anesthesia Complications: none ANE Labs/Vital Signs - Labs Result Diagrams: 12/10/16 11:55 12/13/16 05:43 - Vital Signs Blood Pressure: 150/68 Heart Rate: 55 Respiratory Rate: 16 O2 Sat (%): 95 Height: 160.02 cm Weight: 77.11 kg ANE Physical Exam - Airway Mallampati Score: Class 2 Mouth exam: dentures - Pulmonary Pulmonary: no respiratory distress - Cardiovascular Cardiovascular: regular rate and rhythym - ASA Status ASA Status: III
--- NOTE | 2016-12-14 11:25 | GPN ---
[f rep st] PROCEDURE NOTE DATE OF PROCEDURE: 12/14/2016 PROCEDURE: Esophagogastroduodenoscopy with biopsy, endoscopic ultrasound. INDICATIONS: The patient is a 76-year-old female, who presents for evaluation of abnormal imaging, as well as epigastric/right upper quadrant abdominal pain. She presents for further evaluation. CONSENT: Risks, benefits, and alternatives of the procedure were discussed in great detail with the patient. Risk of infection, bleeding, perforation, sedation, and pancreatitis were discussed. All questions answered and informed consent was obtained. MEDICATIONS: General anesthesia. Please see Anesthesiology record for details. ESTIMATED BLOOD LOSS: Insignificant. ESOPHAGOGASTRODUODENOSCOPY EXAMINATION: The Olympus upper endoscope was introduced into the mouth and advanced to the esophagus. The proximal and mid esophagus were normal in appearance. The patient was noted to have irregular Z- line and biopsies were taken. The stomach was entered and closely examined, including retroflexed views of angularis, cardia, and fundus. The mucosa in the antrum and body of the stomach was erythematous. Biopsies were taken. The duodenal bulb and second portion of duodenum were normal in appearance. ENDOSCOPIC ULTRASOUND EXAMINATION: The Olympus linear echoendoscope was introduced into the mouth and advanced to the second portion of the duodenum. The pancreas was carefully examined from the uncinate process to the tail where the spleen was seen. The pancreatic parenchyma had hyperechoic foci throughout. In the body of the pancreas, multiple dilated side branches were noted with hyperechoic ductal aviles. The main pancreatic duct was not dilated. No lobulations were noted. In the body of the pancreas, a 1 cm cyst was noted. It appeared to be a simple cyst with a thin wall. No obvious liver lesions were noted. The common bile duct was seen, was seen and significant debris was noted. The common bile duct was seen merging with the pancreatic duct. No suspicious perigastric, periportal, or duodenal nodes were appreciated. IMPRESSION: 1. Parenchymal changes in the pancreas. 2. Gastritis, status post biopsy. 3. Esophagitis status post biopsy. RECOMMENDATIONS: 1. Proceed with ERCP. 2. Await biopsy results. /[id number]/MODL MTDD
[2016-12-14] MEDS ORDERED: NALOXONE HCL 0.4 MG/ML INJ IVP PRN (11:32)
[2016-12-14] MEDS ORDERED: LR 500 ML IV PRN (11:32)
--- NOTE | 2016-12-14 11:32 | POSTANESTH ---
Post Anesthetic Evaluation Cardiovascular Status: Similar to Pre-Op Cond Respiratory Status: Similar to Pre-op Cond. Level of Consciousness/Mental Status: Mildly Sleepy, Arousable Pain Control: Adequate, Prn Tx Ordered Nausea/Vomiting Control: Adequate, Prn Tx Ordered Complications Possibly Related to Anesthesia: None Noted
[2016-12-14] MEDS: fentaNYL 100 MCG/2 ML INJ IVP PRN ×6 (11:43→12:28)
[2016-12-14] MEDS: HYDROmorphONE/DILAUDID 1 MG/ML SYR IVP PRN ×4 (13:15→20:03)
--- NOTE | 2016-12-14 15:05 | GPN ---
[f rep st] PROCEDURE NOTE DATE OF PROCEDURE: 12/14/2016 PROCEDURE: ERCP with biliary sphincterotomy, stone extraction. INDICATION: The patient is a 76-year-old female who recently had a HIDA scan which did reveal delayed emptying of the CBD consistent with sphincter of Oddi dysfunction.She presents for further evaluation. CONSENT: Risks, benefits, and alternatives of the procedure were discussed in great detail with the patient. Risks of infection, bleeding, perforation, sedation, and pancreatitis were discussed. All questions answered. Informed consent obtained. MEDICATIONS: General anesthesia. Please see Anesthesiology record for details. Levaquin 500 mg IV x1. Indomethacin 100 mg per rectum x1. ESTIMATED BLOOD LOSS: Insignificant. ENDOSCOPIC RETROGRADE CHOLANGIOPANCREATOGRAPHY EXAM: The Olympus duodenoscope iwas ntroduced into the mouth and advanced to the second portion of the duodenum. The ampulla was brought into view. There was noted to be a diverticulum just inferior to the ampulla which measured approximately 3 x 3 cm. To the left of the ampulla, another diverticulum was noted which measured approximately 2 x 2 cm. Using a [employer] sphincterotome and a 0.035 inch wire, the wire was advanced into the common bile duct and intrahepatics using the wire guided technique. No pancreatic duct manipulation or injection was made. The ampulla did grasp with sphincterotome consistent with ampullary stenosis. A cholangiogram was performed to confirm the position. I personally interpreted the radiographic images in real time. The flow of contrast was adequate and visualization was adequate. The biliary sphincterotomy was extended and a balloon sweep was made with a 9-12 and 12-15 mm balloon with extraction of debris. The common bile duct measured approximately 7 mm. The excess air was suctioned and the procedure terminated. IMPRESSION: 1. Ampullary stenosis- status post sphincterotomy. 2. Removal of debris. RECOMMENDATIONS: 1. N.p.o. until tomorrow. /[id number]/MODL MTDD
[2016-12-14] MEDS: PREGABALIN 100 MG CAP PO SCH (20:03)
[2016-12-14] MEDS: QUEtiapine FUMARATE 100 MG TAB PO SCH (20:04)
[2016-12-14] MEDS: amLODIPine BESYLATE 5 MG TAB PO SCH (20:04)
[2016-12-14] MEDS: MELOXICAM 7.5 MG PO SCH (21:12)
[2016-12-15] MEDS: HYDROmorphONE/DILAUDID 1 MG/ML SYR IVP PRN ×6 (02:11→23:41)
[2016-12-15] MEDS: oxyCODONE IR 5 MG TAB PO PRN ×2 (04:10→09:38)
[2016-12-15] MEDS: LEVOTHYROXINE 125 MCG TAB PO SCH (04:10)
[2016-12-15 05:36] LABS: % IMMATURE GRANULYOCYTES 0.3 % (0.0-1.1); ABSOLUTE IMMATURE GRANULOCYTES 0.02 10^3/uL (0.00-0.10); ADD DIFF? NO; ADD MORPH? NO; ADD SCAN? NO; ATYPICAL LYMPHOCYTE FLAG 0 (0-99); FRAGMENT RBC FLAG 0 (0-99); HEMATOCRIT 39.5 % (38.0-47.0); HEMOGLOBIN 13.5 g/dL (12.6-16.3); LEFT SHIFT FLG 0 (0-99); LIPEMIA HEMOLYSIS FLAG 90 (0-99); MEAN CELL HEMOGLOBIN 32.1 pg (27.9-34.1); MEAN CELL HEMOGLOBIN CONCENTR. 34.2 g/dL (32.4-36.7); MEAN PLATELET VOLUME 10.4 fL (8.7-11.7); PLATELET CLUMPS FLAG 10 (0-99); PLATELET COUNT 222 10^3/uL (150-400); RED CELL DISTRIBUTION WIDTH 13.7 % (11.5-15.2)
[2016-12-15 05:51] LABS: ALANINE AMINOTRANSFERASE 30 IU/L (9-52); ALBUMIN 3.3 g/dL (3.5-5.0); ALKALINE PHOSPHATASE 68 IU/L (38-126); ANION GAP 9 mEq/L (8-16); ASPARTATE AMINOTRANSFERASE 21 IU/L (14-46); BILIRUBIN,TOTAL 0.8 mg/dL (0.1-1.4); CALCIUM 9.6 mg/dL (8.5-10.4); CARBON DIOXIDE 26 mEq/l (22-31); CHLORIDE 101 mEq/L (97-110); CREATININE 0.9 mg/dL (0.6-1.0); GLOMERULAR FILTRATION RATE > 60; GLUCOSE 114 mg/dL (70-100); POTASSIUM 4.7 mEq/L (3.5-5.2); SODIUM 136 mEq/L (134-144); TOTAL PROTEIN 5.7 g/dL (6.3-8.2)
[2016-12-15] MEDS: SUCRALFATE 1 GM/10 ML UDCUP PO SCH ×4 (07:45→20:13)
[2016-12-15] MEDS: LISINOPRIL 40 MG TAB PO SCH (07:48)
[2016-12-15] MEDS: GABAPENTIN 400 MG CAP PO SCH (07:49)
[2016-12-15] MEDS: PANTOPRAZOLE SODIUM 40 MG TAB PO SCH ×2 (07:49→20:13)
--- NOTE | 2016-12-15 08:35 | HOSPPROG ---
Hospitalist Progress Note Assessment/Plan: # abd pain: SOD vs gastritis vs carafate - s/p ERCP with sphincterotomy by Dr Abdul given possibility of SOD - currently NPO, advance diet per Dr Abdul - high risk for pancreatitis # gastritis with biliary reflux on HIDA - carafate and PPI # esophagitis - PPI # fever? - GI panel and resp panel negative # mild SOD on HIDA - ERCP as above # PE, 08/2016 - will d/w GI regarding restart Xarelto - no LE DVT # chronic pain - home meds # hypothyroid - synthroid # htn - home meds Subjective: abd pain was better yesterday, worse today - about the same as before Objective: Vital Signs Temp Pulse Resp BP Pulse Ox 36.4 C 45 L 18 149/68 H 97 12/15/16 04:00 12/15/16 04:00 12/15/16 04:00 12/15/16 04:00 12/15/16 04:00 Laboratory Results 12/15/16 05:12 12/15/16 05:12 12/14/16 12/15/16 12/16/16 05:59 05:59 05:59 Intake Total 750 700 Output Total 450 Balance 750 250 PT 16.2 SEC (12.0-15.0) H 12/13/16 05:43 INR 1.30 (0.83-1.16) H 12/13/16 05:43 - Physical Exam Constitutional: no apparent distress, appears nourished Cardiovascular: regular rate and rhythym, no murmur, rub, or gallop Respiratory: no respiratory distress, no rales or rhonchi, clear to auscultation Gastrointestinal: normoactive bowel sounds, other (soft, mild TTP RUQ, no HSM) ICD10 Worksheet Patient Problems: Problems Problem Status Onset Pancreatitis Acute Pulmonary emboli Acute Hypoxia Acute Acute chest pain Acute Gastritis Acute Abdominal pain Acute
--- NOTE | 2016-12-15 08:39 | HOSPPROG ---
Hospitalist Progress Note Assessment/Plan: # abd pain: SOD vs gastritis vs carafate - s/p ERCP with sphincterotomy by Dr Abdul given possibility of SOD - currently NPO, advance diet per Dr Abdul - high risk for pancreatitis # gastritis with biliary reflux on HIDA - carafate and PPI # esophagitis - PPI # bradycardia - slightly worse today but somewhat chronic; does not seem symptomatic - may be d/t mild vagal reaction in setting of ERCP on somewhat chronic bradycardia - follow clinically - check ECG # fever? - GI panel and resp panel negative # mild SOD on HIDA - ERCP as above # PE, 08/2016 - will d/w GI about restarting Xarelto - no LE DVT # chronic pain - home meds # hypothyroid - synthroid # htn - home meds Objective: Vital Signs Temp Pulse Resp BP Pulse Ox 36.3 C 47 L 12 120/70 90 L 12/15/16 08:00 12/15/16 08:00 12/15/16 08:00 12/15/16 08:00 12/15/16 08:00 Laboratory Results 12/15/16 05:12 12/15/16 05:12 12/14/16 12/15/16 12/16/16 05:59 05:59 05:59 Intake Total 750 700 Output Total 450 Balance 750 250 PT 16.2 SEC (12.0-15.0) H 12/13/16 05:43 INR 1.30 (0.83-1.16) H 12/13/16 05:43 ICD10 Worksheet Patient Problems: Problems Problem Status Onset Abdominal pain Acute Acute chest pain Acute Gastritis Acute Hypoxia Acute Pancreatitis Acute Pulmonary emboli Acute
[2016-12-15] MEDS ORDERED: NS 1,000 ML IV SCH (08:45)
--- NOTE | 2016-12-15 10:00 | CPEKG ---
Heart Rate: 44 RR Interval: 1364 P-R Interval: 176 QRSD Interval: 80 QT Interval: 464 QTC Interval: 397 P [place]: 34 QRS [place]: 11 T Wave [place]: 21 EKG Severity - OTHERWISE NORMAL ECG - EKG Impression: SINUS BRADYCARDIA EKG Impression: VENTRICULAR PREMATURE COMPLEX Electronically Signed By: Jaun Davenport 16-Dec-2016 16:51:43
--- NOTE | 2016-12-15 16:02 | SOAPPROG ---
[facility] Progress Note Assessment/Plan: Assessment: Plan: 12/13/16 08:12 A/P 1. Abdominal pain- midepigastrium. Not improved on PPI therapy and Carafate. Will consider trial of hyoscyamine. Xarelto was held yesterday. Did have a prior HIDA scan which did show evidence of sphincter of oddi dysfunction. I had a long discussion with the patient regarding risks and benefits of EUS/ ERCP. I did discuss that the risk of pancreatitis is around 20% and this could be life-threatening. If she does not improve, she would like to proceed with evaluation. Due to her obstructive sleep apnea, she is also an increased risk of sedation as well as bleeding since we will have to restart this Xarelto after the procedure. We will plan on procedure tomorrow morning. Keep npo after midnight. 12/15/16 16:00 A/P 1. Abdominal pain- midepigastric/RUQ. Appears improved after sphincterotomy. No apparent complication of procedure. Will advance diet. Subjective: cc: Follow up abdominal pain. Feeling better. Pain is 6/10 (prior to procedure 8/10). Objective: Vital Signs Temp Pulse Resp BP Pulse Ox 36.4 C 59 L 14 133/74 H 95 12/15/16 12:00 12/15/16 12:00 12/15/16 12:00 12/15/16 12:00 12/15/16 12:00 Laboratory Results 12/15/16 05:12 12/15/16 05:12 12/14/16 12/15/16 12/16/16 05:59 05:59 05:59 Intake Total 750 700 Output Total 450 Balance 750 250 PT 16.2 SEC (12.0-15.0) H 12/13/16 05:43 INR 1.30 (0.83-1.16) H 12/13/16 05:43 Physical Exam - Physical Exam General Appearance: alert, no apparent distress EENT: No scleral icterus (R), No scleral icterus (L) Respiratory: lungs clear, normal breath sounds Cardiac/Chest: regular rate, rhythm, No bradycardia, No tachycardia, No diastolic murmur Abdomen: normal bowel sounds, non-tender, soft, distended, No guarding, No rebound Neuro/Psych: normal mood/affect, oriented x 3 ICD10 Worksheet Patient Problems: Problems Problem Status Onset Pancreatitis Acute Pulmonary emboli Acute Hypoxia Acute Acute chest pain Acute Gastritis Acute Abdominal pain Acute
[2016-12-15] MEDS: amLODIPine BESYLATE 5 MG TAB PO SCH (20:13)
[2016-12-15] MEDS: PREGABALIN 100 MG CAP PO SCH (20:13)
[2016-12-15] MEDS: QUEtiapine FUMARATE 100 MG TAB PO SCH (20:13)
[2016-12-15] MEDS: MELOXICAM 7.5 MG PO SCH (21:55)
[2016-12-16] MEDS: HYDROmorphONE/DILAUDID 1 MG/ML SYR IVP PRN ×4 (03:14→15:02)
[2016-12-16] MEDS: LEVOTHYROXINE 125 MCG TAB PO SCH (05:15)
[2016-12-16 08:43] VITALS: O2SAT 95
[2016-12-16] MEDS: PANTOPRAZOLE SODIUM 40 MG TAB PO SCH (09:13)
[2016-12-16] MEDS: LISINOPRIL 40 MG TAB PO SCH (09:13)
[2016-12-16] MEDS: GABAPENTIN 400 MG CAP PO SCH (09:13)
[2016-12-16] MEDS: SUCRALFATE 1 GM/10 ML UDCUP PO SCH ×2 (09:13→12:27)
[2016-12-16] MEDS: RIVAROXABAN 20 MG TAB PO SCH (09:13)
[2016-12-16] MEDS: oxyCODONE IR 5 MG TAB PO PRN ×2 (10:45→15:34)
[2016-12-16 12:53] VITALS: BP 138/93; PULSE 47; RESP 18; TEMP 98
--- NOTE | 2016-12-16 14:41 | PDIAF ---
- Diagnosis Diagnosis: sphincter of monty dysfxn, gastritis, gait instability Code Status: Full Code - Medication Management Discharge Medications: Medications to Continue on Transfer Lisinopril [Zestril 40 mg (*)] 40 mg PO DAILY 06/13/14 [Last Taken 12/09/16] amLODIPine BESYLATE [Norvasc 5 mg (*)] 5 mg PO HS 06/13/14 [Last Taken 12/09/16] Pregabalin [LYRICA] 200 mg PO HS 08/24/16 [Last Taken 12/09/16] Zolpidem Tartrate [Ambien 10 mg] 10 mg PO HS PRN 08/24/16 [Last Taken 11/24/16] Gabapentin 400 mg PO DAILY 11/26/16 [Last Taken 12/09/16] Levothyroxine Sodium 62.5 mcg PO DAILY@06 11/26/16 [Last Taken 12/10/16] clonIDINE [Catapres (*)] 0.1 mg PO BID 11/26/16 [Last Taken 12/09/16] Pantoprazole Sodium [Protonix 40mg (*)] 40 mg PO BID #60 tab 12/04/16 [Last Taken 12/09/16] Polyethylene Glycol 3350 [Miralax 17 gm (*)] 17 gm PO DAILY PRN #30 pkt [Last Taken Unknown] Rivaroxaban [Xarelto] 20 mg PO DAILY #30 tab 12/04/16 [Last Taken 12/09/16] QUEtiapine FUMARATE [Seroquel 100 mg (*)] 100 mg PO HS 12/10/16 [Last Taken 03/19] Sucralfate [Carafate Oral Liquid] 1,000 mg PO ACHS 12/10/16 [Last Taken 12/09/16 ] Acetaminophen [Tylenol 325mg (*)] 650 mg PO Q4HRS PRN #0 tab 12/16/16 [Last Taken Unknown] Discharge Medications: Refer to the Discharge Home Medication list for PRN reason. PICC Care - Routine: N/A - Orders Services needed: Registered Nurse, Certified Rn Gyn, Master Operating Manager , Physical Therapy, Occupational Therapy Diet Recommendation: no restrictions on diet Diet Texture: Regular Texture Diet - Follow Up Care Current Providers and Referrals: Soumya Jimenez MD [Primary Care Provider] - As per Instructions Pankaj Abdul MD [Medical Doctor] -
--- NOTE | 2016-12-16 14:42 | PDDCSUM ---
Discharge Summary Discharge Summary: DISCHARGE DIAGNOSES: -Epigastric abdominal pain -Sphincter of Oddi dysfunction -Esophagitis, mild erosions -Gastritis -Gait instability CONSULTANTS: Dr. Abdul PROCEDURES: Esophagogastroduodenoscopy with sphincterotomy of the sphincter of Oddi HOSPITAL COURSE SUMMARY: This patient who had recently been diagnosed with esophagitis and gastritis by endoscopy and also a sphincter of Oddi dysfunction seen on a nuclear imaging study comes back in the hospital with worsening of the same symptoms. There were no new findings are suspected diagnoses based on her presentation and initial evaluation. Endoscopy revealed ongoing inflammatory changes in the way of esophagitis and gastritis. Her sphincter of OT did not show any masses on endoscopy at this time but she was treated with sphincterotomy which is led to dramatic improvement in her symptoms and her ability to eat. At this point will continue on with acid suppression and Carafate which she had been taking previously. In addition is recommended that she continue off of meloxicam, which she has been taking for joint pains, due to her gastritis. PENDING TEST RESULTS: None MEDICATION CHANGES: Discontinue meloxicam FOLLOW-UP PLAN: with Dr. Abdul in 3-4 weeks or sooner as needed Greater than 35 minutes bedside and care coordination time today
== END 2016-12-16 15:55 | DRG 445 ==
LOC: OBSVTOIN 14:56 → F3E 15:48
PROVIDERS: ADMIT Internal Medicine; ATTEND Student in an Organized Health Care Education/Training Program
PROC: 0FB98ZX Excision of Common Bile Duct, Via Natural or Artificial Opening Endoscopic, Diagnostic (ICD-10-PCS; principal; 2016-12-14 10:30)
PROC: 0FC98ZZ Extirpation of Matter from Common Bile Duct, Via Natural or Artificial Opening Endoscopic (ICD-10-PCS; principal; 2016-12-14 10:30)
DX: K83.4 Spasm of sphincter of Oddi (principal); K80.50 Calculus of bile duct without cholangitis or cholecystitis without obstruction; K83.8 Other specified diseases of biliary tract; K29.70 Gastritis, unspecified, without bleeding; J96.11 Chronic respiratory failure with hypoxia; G47.33 Obstructive sleep apnea (adult) (pediatric); G89.29 Other chronic pain; K21.9 Gastro-esophageal reflux disease without esophagitis; K59.00 Constipation, unspecified; E03.9 Hypothyroidism, unspecified; I10 Essential (primary) hypertension; F32.9 Major depressive disorder, single episode, unspecified; Z87.442 Personal history of urinary calculi; Z96.641 Presence of right artificial hip joint; Z96.653 Presence of artificial knee joint, bilateral; Z86.711 Personal history of pulmonary embolism; Z87.891 Personal history of nicotine dependence
CPT/HCPCS: 96374; 97116-GP; 97161-GP; 97530-GP; G8978-GP-CK; G8979-GP-CJ; J1100; J1170; J1610; J1956; J2001; J2704; J3010; Q9961

== ENCOUNTER 2016-12-30 13:48 | Emergency (ER) | payer OTHER, MEDICAID ==
[2016-12-30 14:03] VITALS: TEMP 97.9
--- NOTE | 2016-12-30 14:23 | CPEKG ---
Heart Rate: 84 RR Interval: 714 P-R Interval: 160 QRSD Interval: 84 QT Interval: 376 QTC Interval: 445 P [place]: 37 QRS [place]: -10 T Wave [place]: 12 EKG Severity - NORMAL ECG - EKG Impression: SINUS RHYTHM Electronically Signed By: Rosita Babb 30-Dec-2016 16:43:13
--- NOTE | 2016-12-30 14:25 | EDPHY ---
H & P Stated Complaint: Shakey, woozy; broke out in a sweat;recent surg;on xarelto HPI/ROS: CHIEF COMPLAINT: Shaky, woozy, hypotensive HISTORY OF PRESENT ILLNESS: This patient is an anticoagulated 76 year old female arriving from home by private vehicle complaining of shakiness, dizziness, and sweatiness onset this morning upon waking at 11:00 a.m.. She states she felt "woozy", as if she were about to faint. When walking from her car to the hospital door she had to stop several times in sit down because she felt so lightheaded. She states she felt well last night. Eight days ago, she underwent sphincterotomy with Dr. Abdul, and endorses right-sided abdominal pain which she feels is related to the surgery. She was discharged two days ago from [facility], where she was in recovery from the procedure. Since returning home she has been eating microwave dinners. She recalls drinking only 2 glasses of water. She states she has been nauseous over the last week, and endorses an episode of retching yesterday evening (dry heaves) but no vomiting. She has not seen blood in her stool. She is hypotensive on arrival at 98/55. She has taken her antihypertensive medication this morning--she takes lisinopril 40 mg in the morning and clonidine 0.1 mg in the morning. At night she takes amlodipine 5 mg and another 0.1 mg of clonidine. She also took OxyContin 10 mg at 1:00 p.m.. This is part of her usual medication regimen, nothing new or different. She has tolerated these medications for quite some time. She does not think that she took any extra pills. She endorses weight loss of about 15 pounds since August, when she was admitted for management of pulmonary embolism. REVIEW OF SYSTEMS: A ten point review of systems was performed and is negative with the exception of the items mentioned in the HPI. Source: Patient Exam Limitations: No limitations - Personal History Current Tetanus Diphtheria and Acellular Pertussis (TDAP): Yes Tetanus Vaccine Date: within last 10 years - Medical/Surgical History PMH: 1. Pancreatitis 2. Hypertension 3. Asthma 4. Kidney stones 5. Hysterectomy 6. Cholecystectomy 7. Appendectomy 8. Sleep apnea 9. Peripheral neuropathy 10. Hypothyroid 11. GERD 12. Fibromyalgia Past medical records reviewed including ED visit 6/10/17. Hx Asthma: Yes Hx Chronic Respiratory Disease: No Hx Diabetes: No Hx Cardiac Disease: No Hx Renal Disease: No Hx Cirrhosis: No Hx Alcoholism: No Hx HIV/AIDS: No Hx Splenectomy or Spleen Trauma: No Other PMH: pancreatitis, polyarteritis nodosa (IN REMISSION SINCE 2002), HTN, asthma, kidney stones, hysterectomy, cholecystectomy, appendectomy. tyrone, peripheral neruopathy, cataracts, phtn, rt knee replacement, fibermyalgia, pancreatic duct stricture, OA, hypothyroid, gerd, carpal tunnel release - Social History Smoking Status: Former smoker Additional Social History: Lives independently at [facility] - Physical Exam Exam: General Appearance: Alert. Vital signs reviewed. Blood pressure at triage was 82/45, blood pressure at the time of my evaluation was 98/55. Eyes: Pupils equal and round, no conjunctival injection, no discharge. Anicteric. ENT, Mouth: Mucous membranes are moist, no oropharyngeal erythema or edema. Neck: No lymphadenopathy, supple. Respiratory: Lungs are clear to auscultation; no wheezes, rales, or rhonchi. Cardiovascular: Regular rate and rhythm; no murmur, rub, or gallop. Gastrointestinal: Right upper quadrant tenderness. No guarding. Abdomen is soft, no masses or organomegaly, bowel sounds normal. Rectal: External hemorrhoids. Firm stool, no gross blood. Skin: Warm and dry, no rashes on exposed skin, normal color. Back: Nontender to palpation over the thoracolumbar spine. No CVAT. Extremities: Trace lower extremity edema, no calf tenderness or swelling. Neurological: Alert and oriented. Moving all four extremities easily and equally. Psychiatric: Normal affect. Constitutional: Initial Vital Signs Temperature (C) 36.6 C 12/30/16 13:55 Heart Rate 93 12/30/16 13:55 Respiratory Rate 18 12/30/16 13:55 Blood Pressure 82/45 L 12/30/16 13:55 O2 Sat (%) 92 12/30/16 13:55 O2 Delivery Mode Room Air O2 (L/minute) 2 Allergies/Adverse Reactions: bupivacaine HCl [From Marcaine] Allergy (Severe, Verified 12/31/16 06:18) ASTHMA TYPE SYMPTOMS Sulfa (Sulfonamide Antibiotics) Allergy (Severe, Verified 12/31/16 06:18) ASTHMA SYMPTOMS tramadol HCl [From Ultram] Allergy (Severe, Verified 12/31/16 06:18) ASTHMA TYPE SYMPTOMS Penicillins Allergy (Intermediate, Verified 12/31/16 06:18) RASH, ASTHMA TYPE REACTION propoxyphene HCl [From Darvon] Allergy (Intermediate, Verified 12/31/16 06:18) Vomiting Home Medications: Medication Instructions Recorded Lisinopril [Zestril 40 mg (*)] 40 mg PO DAILY 06/13/14 amLODIPine BESYLATE [Norvasc 5 mg 5 mg PO HS 06/13/14 (*)] Pregabalin [LYRICA] 200 mg PO HS 08/24/16 Zolpidem Tartrate [Ambien 10 mg] 10 mg PO HS PRN 08/24/16 Gabapentin 400 mg PO HS 11/26/16 Levothyroxine Sodium 125 mcg PO DAILY@06 11/26/16 Pantoprazole Sodium [Protonix 40mg 40 mg PO BID #60 tab 12/04/16 (*)] Polyethylene Glycol 3350 [Miralax 17 gm PO DAILY PRN #30 pkt 12/04/16 17 gm (*)] Rivaroxaban [Xarelto] 20 mg PO DAILY #30 tab 12/04/16 QUEtiapine FUMARATE [Seroquel 100 100 mg PO HS 12/10/16 mg (*)] Sucralfate [Carafate Oral Liquid] 1,000 mg PO ACHS 12/10/16 Meloxicam [Mobic 7.5 mg] 7.5 mg PO HS 12/31/16 clonIDINE [Catapres (*)] 0.1 mg PO BID 12/31/16 oxyCODONE IR [Oxycodone Ir (*)] 5 - 10 mg PO Q6 PRN 12/31/16 Medical Decision Making - Diagnostics EKG Interpretation: The 12 lead EKG was interpreted by myself. See hard copy and/or "tracemaster" electronic copy for interpretation. Sinus rhythm, rate 84. ED Course/Re-evaluation: 76-year-old female who is 9 day status post sphincter of Oddi sphincterotomy. She has a history of hypertension and took her antihypertensives this morning, as prescribed. She presents today feeling presyncopal. On arrival her blood pressure was in the mid 80s, which would explain her lightheadedness. She is on Xarelto and it was my initial impression that she likely had GI or other bleeding. She has not had any vomiting, but had some dry heaves last night. She has not had any blood in her stool. She thought her stool might be slightly darker than usual the but nothing that alarmed her. Stool for Hemoccult today is negative. Her blood counts are within the normal range. She received 1.5 L of IV fluid with significant improvement in her blood pressures. Orthostatics vital signs are normal. She was re-evaluated at 4:15 p.m.. Her systolic blood pressure is now 132/80. She feels much better. She does not feel lightheaded, dizzy, or short of breath , and she denies pain. She feels that she can manage at home. I will contact her primary care physician, Dr. Jimenez. Primary care physician is out of town and I was unable to speak with the covering physician. I am not sure whether this patient perhaps inadvertently took extra OxyContin. She has been stable on her blood pressure medications for quite some time but it is certainly possible that she no longer requires all of the antihypertensive medications that are currently prescribed. It is also possible that she was dehydrated. I have not found evidence of internal bleeding. I am recommending that she follow up with her primary care physician in the next couple of days. Differential Diagnosis: Syncope including but not limited to vasovagal syncope, arrhythmia, dehydration , and blood loss. - Data Points Laboratory Results: Laboratory Results 12/30/16 14:20 12/30/16 14:20 Medications Given: Discontinued Medications Sodium Chloride (Ns) 1,000 mls @ 3,000 mls/hr IV ONCE ONE Stop: 12/30/16 15:05 Last Admin: 12/30/16 14:48 Dose: 1,000 mls Sodium Chloride (Ns) 1,000 mls @ 0 mls/hr IV ONCE ONE; Wide Open PRN Reason: Protocol Stop: 12/30/16 15:16 Last Admin: 12/30/16 15:49 Dose: 1,000 mls Departure - Departure Disposition: Home, Routine, Self-Care Clinical Impression: Dehydration Hypotension Qualifiers: Hypotension type: idiopathic hypotension Qualified Code(s): I95.0 - Idiopathic hypotension Condition: Good Instructions: Dehydration (ED), Hypotension (ED) Additional Instructions: Be very careful taking your medications--especially your oxycontin. Call Dr. Jimenez's office and schedule an appointment for early next week. You should have your medications reviewed and your blood pressures checked. Check your blood pressure at home this weekend. Write down the values. If your diastolic blood pressure (the top number) is under 100 you should let your doctor know. If you feel lightheaded or faint you should call 911 and return to the emergency room. Referrals: Soumya Jimenez MD [Primary Care Provider] - As per Instructions Report Scribed for: Rosita Babb Report Scribed by: Sindhu Inman Date of Report: 12/30/16 Time of Report: 14:55 Physician Review and Approval Statement: 12/30/16 14:25 Portions of this note were transcribed by the medical administrative assistant. I, Dr. Rosita Babb, personally performed the history, physical exam, and medical decision- making; and confirmed the accuracy of the information in the transcribed note.
[2016-12-30 14:29] LABS: % IMMATURE GRANULYOCYTES 0.5 % (0.0-1.1); ABSOLUTE IMMATURE GRANULOCYTES 0.03 10^3/uL (0.00-0.10); ADD DIFF? NO; ADD MORPH? NO; ADD SCAN? NO; ATYPICAL LYMPHOCYTE FLAG 10 (0-99); FRAGMENT RBC FLAG 0 (0-99); HEMATOCRIT 38.1 % (38.0-47.0); HEMOGLOBIN 12.6 g/dL (12.6-16.3); LEFT SHIFT FLG 0 (0-99); LIPEMIA HEMOLYSIS FLAG 80 (0-99); MEAN CELL HEMOGLOBIN 32.3 pg (27.9-34.1); MEAN CELL HEMOGLOBIN CONCENTR. 33.1 g/dL (32.4-36.7); MEAN CELL VOLUME 97.7 fL (81.5-99.8); MEAN PLATELET VOLUME 11.1 fL (8.7-11.7); PLATELET CLUMPS FLAG 10 (0-99); PLATELET COUNT 183 10^3/uL (150-400); RED CELL DISTRIBUTION WIDTH 13.9 % (11.5-15.2)
[2016-12-30] MEDS ORDERED: NS 1,000 ML IV ONE ×2 (14:46→15:15)
[2016-12-30 15:13] LABS: ANION GAP 12 mEq/L (8-16); CALCIUM 9.1 mg/dL (8.5-10.4); CARBON DIOXIDE 19 mEq/l (22-31); CHLORIDE 106 mEq/L (97-110); CREATININE 0.9 mg/dL (0.6-1.0); GLOMERULAR FILTRATION RATE > 60; GLUCOSE 133 mg/dL (70-100); POTASSIUM 4.2 mEq/L (3.5-5.2); SODIUM 137 mEq/L (134-144)
[2016-12-30 15:51] VITALS: RESP 18
[2016-12-30 17:48] VITALS: BP 133/74; PULSE 72; O2SAT 90
== END 2016-12-30 17:47 | disposition home or self-care (01) ==
DX: E86.0 Dehydration (principal); I95.0 Idiopathic hypotension; I10 Essential (primary) hypertension; J45.909 Unspecified asthma, uncomplicated; E86.9 Volume depletion, unspecified; Z87.891 Personal history of nicotine dependence

== ENCOUNTER 2016-12-31 06:10 | Observation (INO) | payer OTHER, MEDICAID ==
--- NOTE | 2016-12-31 06:59 | EDPHY ---
H & P Stated Complaint: pt seen yest for weakness, now pt c/o mid abd pain radiating to back Time Seen by Provider: 12/31/16 06:44 HPI/ROS: CHIEF COMPLAINT: Abdominal pain HISTORY OF PRESENT ILLNESS: This is a 76-year-old female with a history of chronic abdominal pain and sphincterotomy of the sphincter of Oddi on December 14, 2016. She was seen in the emergency department yesterday afternoon with hypotension that resolved. She returned home and has had no further lightheadedness or dizziness, however, she developed midepigastric pain that bores through into her back. She describes it as excruciating. This is similar to, but not the same as, her chronic abdominal pain. She had an episode of retching, not uncommon for her. She has not had vomiting. Her last bowel movement was day before yesterday. It is typical for her to go a few days without moving her bowels. She felt slightly short of breath this morning. She is not having chest pain. She has not been aware of fever. She denies urinary complaints. REVIEW OF SYSTEMS: A ten point review of systems was performed and is negative with the exception of the items mentioned in the HPI. Source: Patient, Old records Exam Limitations: No limitations - Personal History Tetanus Vaccine Date: within last 10 years - Medical/Surgical History Hx Asthma: Yes Hx Chronic Respiratory Disease: No Hx Diabetes: No Hx Cardiac Disease: Yes Hx Renal Disease: No Hx Cirrhosis: No Hx Alcoholism: No Hx HIV/AIDS: No Hx Splenectomy or Spleen Trauma: No Other PMH: Sphincter of Oddi sphincterotomy on 12/14/2016, gastritis/ esophagitis per endoscopy on 12/14/2016, pancreatitis, polyarteritis nodosa (IN REMISSION SINCE 2002), HTN, asthma, kidney stones, hysterectomy, cholecystectomy , appendectomy. peripheral neruopathy, cataracts, rt knee replacement, fibromyalgia, pancreatic duct stricture, OA, hypothyroid, gerd, carpal tunnel release - Social History Smoking Status: Former smoker Additional Social History: She lives independently at [facility] with her dog. No tobacco or alcohol use. - Physical Exam Exam: General Appearance: Alert. Vital signs reviewed. Blood pressure 180/79 at triage Eyes: Pupils equal and round, no conjunctival injection, no discharge. Anicteric. ENT, Mouth: Mucous membranes are moist, no oropharyngeal erythema or edema. Neck: No lymphadenopathy, supple. Respiratory: Lungs are clear to auscultation; no wheezes, rales, or rhonchi. Cardiovascular: Regular rate and rhythm; no murmur, rub, or gallop. Gastrointestinal: Abdomen is obese, soft with tenderness in the midepigastrium and right upper quadrant, no guarding, no masses or organomegaly, bowel sounds normal. Skin: Warm and dry, no rashes on exposed skin, normal color. Back: Nontender to palpation over the thoracolumbar spine. No CVAT. Extremities: Bilateral lower extremity edema, no calf tenderness or swelling. Neurological: Alert and oriented. Moving all four extremities easily and equally. Psychiatric: Normal affect. Constitutional: Initial Vital Signs Temperature (C) 36.4 C 12/31/16 06:13 Heart Rate 83 12/31/16 06:13 Respiratory Rate 16 12/31/16 06:13 Blood Pressure 180/79 H 12/31/16 06:13 O2 Sat (%) 93 12/31/16 06:13 O2 Delivery Mode Room Air Allergies/Adverse Reactions: bupivacaine HCl [From Marcaine] Allergy (Severe, Verified 12/31/16 06:18) ASTHMA TYPE SYMPTOMS Sulfa (Sulfonamide Antibiotics) Allergy (Severe, Verified 12/31/16 06:18) ASTHMA SYMPTOMS tramadol HCl [From Ultram] Allergy (Severe, Verified 12/31/16 06:18) ASTHMA TYPE SYMPTOMS Penicillins Allergy (Intermediate, Verified 12/31/16 06:18) RASH, ASTHMA TYPE REACTION propoxyphene HCl [From Darvon] Allergy (Intermediate, Verified 12/31/16 06:18) Vomiting Home Medications: Medication Instructions Recorded Lisinopril [Zestril 40 mg (*)] 40 mg PO DAILY 06/13/14 amLODIPine BESYLATE [Norvasc 5 mg 5 mg PO HS 06/13/14 (*)] Pregabalin [LYRICA] 200 mg PO HS 08/24/16 Zolpidem Tartrate [Ambien 10 mg] 10 mg PO HS PRN 08/24/16 Gabapentin 400 mg PO HS 11/26/16 Levothyroxine Sodium 125 mcg PO DAILY@06 11/26/16 Pantoprazole Sodium [Protonix 40mg 40 mg PO BID #60 tab 12/04/16 (*)] Polyethylene Glycol 3350 [Miralax 17 gm PO DAILY PRN #30 pkt 12/04/16 17 gm (*)] Rivaroxaban [Xarelto] 20 mg PO DAILY #30 tab 12/04/16 QUEtiapine FUMARATE [Seroquel 100 100 mg PO HS 12/10/16 mg (*)] Sucralfate [Carafate Oral Liquid] 1,000 mg PO ACHS 12/10/16 Meloxicam [Mobic 7.5 mg] 7.5 mg PO HS 12/31/16 clonIDINE [Catapres (*)] 0.1 mg PO BID 12/31/16 oxyCODONE IR [Oxycodone Ir (*)] 5 - 10 mg PO Q6 PRN 12/31/16 Medical Decision Making - Diagnostics Imaging: I viewed and interpreted images myself ED Course/Re-evaluation: IV established. Labs drawn. Chest x-ray ordered. Patient has reported allergies to multiple pain medications. 4mg IV Zofran and 5mg IV Ketamine administered. Patient became quite anxious after Ketamine administration at 7:15 AM. 25mg IV Benadryl administered to help this side effect. She has nystagmus and appears to be hallucinating. She states that something very bad is happening to her. This appears to be ketamine side effect. 7:45 a.m.: She Is starting to feel little bit better but continues with anxiety and apparent hallucinations. She has a feeling of impending doom and shortness of breath. Her vital signs are stable and normal. She reports that her abdominal pain is better. She continued with feeling of dysphoria during her emergency department stay, although it improved. I am certain that this is a ketamine effect and nothing more sinister. She did receive some fentanyl for abdominal pain. We have tried to avoid narcotics for treatment of her chronic abdominal pain. Both the patient and a friend who was in the emergency department are quite concerned about her returning home, partly due to the residual ketamine side effects. I am not recommending further evaluation of her abdominal pain, as this is a long- standing problem for her. She has multiple etiologies for her abdominal pain including sphincter dysfunction, gastritis, and esophagitis. She also has multiple pain syndromes including polyarteritis nodosa and fibromyalgia. I do not think that she has an acute abdomen. I do not suspect aortic dissection. Dr. Adrian accepts admission. - Data Points Laboratory Results: Laboratory Results 12/31/16 07:00 12/31/16 07:00 Medications Given: Discontinued Medications Acetaminophen (Tylenol) 650 mg PO EDNOW ONE Stop: 12/31/16 09:28 Last Admin: 12/31/16 09:36 Dose: 650 mg Fentanyl (Sublimaze) 75 mcg IVP EDNOW ONE Stop: 12/31/16 10:09 Last Admin: 12/31/16 10:22 Dose: 75 mcg Fentanyl (Sublimaze) 50 mcg IVP EDNOW ONE Stop: 12/31/16 12:03 Last Admin: 12/31/16 12:12 Dose: 50 mcg Pantoprazole Sodium 40 mg/ (Sodium Chloride) 100 mls @ 200 mls/hr IV EDNOW ONE Stop: 12/31/16 09:01 Last Admin: 12/31/16 09:03 Dose: 100 mls Sodium Chloride (Ns) 500 mls @ 0 mls/hr IV EDNOW ONE; Wide Open PRN Reason: Protocol Stop: 12/31/16 09:01 Last Admin: 12/31/16 09:44 Dose: 500 mls Ketamine HCl (Ketamine) 5 mg IVP EDNOW ONE Stop: 12/31/16 07:09 Last Admin: 12/31/16 07:15 Dose: 5 mg Ondansetron HCl (Zofran) 4 mg IVP EDNOW ONE Stop: 12/31/16 07:05 Last Admin: 12/31/16 07:09 Dose: 4 mg Departure - Departure Disposition: [facility] Inpatient Acute Clinical Impression: Abdominal pain Qualifiers: Abdominal location: generalized Qualified Code(s): R10.84 - Generalized abdominal pain Condition: Fair Report Scribed for: Rosita Babb Report Scribed by: Leora Keen Date of Report: 12/31/16 Time of Report: 07:36 Physician Review and Approval Statement: 01/01/17 11:22 Portions of this note were transcribed by the medical receptionist medical assistant. I, Dr. Rosita Babb, personally performed the history, physical exam, and medical decision- making; and confirmed the accuracy of the information in the transcribed note.
[2016-12-31] MEDS ORDERED: ONDANSETRON 4 MG/2 ML VIAL IVP ONE (07:04)
[2016-12-31 07:08] LABS: % IMMATURE GRANULYOCYTES 0.4 % (0.0-1.1); ABSOLUTE IMMATURE GRANULOCYTES 0.02 10^3/uL (0.00-0.10); ADD DIFF? NO; ADD MORPH? NO; ADD SCAN? NO; ATYPICAL LYMPHOCYTE FLAG 20 (0-99); FRAGMENT RBC FLAG 0 (0-99); HEMATOCRIT 36.6 % (38.0-47.0); HEMOGLOBIN 12.2 g/dL (12.6-16.3); LEFT SHIFT FLG 0 (0-99); LIPEMIA HEMOLYSIS FLAG 80 (0-99); MEAN CELL HEMOGLOBIN 32.4 pg (27.9-34.1); MEAN CELL HEMOGLOBIN CONCENTR. 33.3 g/dL (32.4-36.7); MEAN CELL VOLUME 97.3 fL (81.5-99.8); PLATELET CLUMPS FLAG 0 (0-99); PLATELET COUNT 184 10^3/uL (150-400); RED BLOOD CELL COUNT 3.76 10^6/uL (4.18-5.33)
[2016-12-31] MEDS ORDERED: KETAMINE 100 MG/10 ML SYR IVP ONE (07:08)
[2016-12-31 07:25] LABS: ALANINE AMINOTRANSFERASE 36 IU/L (9-52); ALBUMIN 3.9 g/dL (3.5-5.0); ALKALINE PHOSPHATASE 106 IU/L (38-126); ANION GAP 14 mEq/L (8-16); ASPARTATE AMINOTRANSFERASE 33 IU/L (14-46); BILIRUBIN,TOTAL 1.2 mg/dL (0.1-1.4); BILIRUBIN-CONJUGATED 0.5 mg/dL (0.0-0.5); BILIRUBIN-UNCONJUGATED 0.7 mg/dL (0.0-1.1); CALCIUM 8.9 mg/dL (8.5-10.4); CARBON DIOXIDE 20 mEq/l (22-31); CHLORIDE 109 mEq/L (97-110); CREATININE 0.8 mg/dL (0.6-1.0); GLOMERULAR FILTRATION RATE > 60; GLUCOSE 115 mg/dL (70-100); POTASSIUM 3.9 mEq/L (3.5-5.2); SODIUM 143 mEq/L (134-144); TOTAL PROTEIN 6.2 g/dL (6.3-8.2)
[2016-12-31] MEDS ORDERED: PANTOPRAZOLE SODIUM 40 MG in NS 100 ML IV ONE (08:32)
[2016-12-31] MEDS ORDERED: NS 500 ML IV ONE (09:00)
[2016-12-31] MEDS ORDERED: ACETAMINOPHEN 325 MG TAB PO ONE (09:27)
[2016-12-31] MEDS ORDERED: fentaNYL 100 MCG/2 ML INJ IVP ONE ×2 (10:08→12:02)
[2016-12-31] MEDS ORDERED: ONDANSETRON 4 MG/2 ML VIAL IVP PRN (12:35)
[2016-12-31] MEDS ORDERED: PROMETHAZINE HCL 25 MG/ML INJ IVP PRN (12:35)
[2016-12-31] MEDS ORDERED: ONDANSETRON DISINTEGRATING 4 MG TAB PO PRN (12:35)
[2016-12-31] MEDS ORDERED: POLYETHYLENE GLYCOL 3350 17 GM PKT PO PRN (12:38)
[2016-12-31] MEDS ORDERED: NON-FORMULARY NEW DRUG (Zolpidem Tartrate [Ambien 10 Mg] 10 MG) PO PRN (12:38)
[2016-12-31] MEDS ORDERED: ZOLPIDEM TARTRATE 5 MG TAB PO PRN (12:50)
[2016-12-31] MEDS: NS 1,000 ML IV SCH (13:34)
[2016-12-31] MEDS: oxyCODONE IR 5 MG TAB PO PRN ×3 (14:14→20:07)
[2016-12-31 14:40] LABS: COLOR PALE YELLOW; LEUKOCYTE ESTERASE,URINE NEGATIVE (NEGATIVE); NITRITE,URINE NEGATIVE (NEGATIVE)
--- NOTE | 2016-12-31 16:55 | GHP ---
[f rep st] HISTORY AND PHYSICAL DATE OF ADMISSION: 12/31/2016 CHIEF COMPLAINT: Abdominal pain and bad reaction to ketamine. HISTORY: This is a 76-year-old female who is well known to this hospital with recent hospitalizatio ns twice in December and again in October for complaints surrounding abdominal pain, nausea, and vomiting. She has been seen in the ER twice in the last 2 days for similar complaints after being discharged f rom this hospital on 12/16 for these complaints as well. Today in the hospital, she was given a dos e of ketamine for help with her chronic pain issues, but unfortunately shortly thereafter became [place] anxious and appeared to be hallucinating. Given ongoing issues with anxiety and possible hallucin ations, it was felt best to have her observed overnight. At the time of my evaluation, the anxiety and hallucinations have resolved but she is again complaining of severe abdominal pain. She notes i t is mid epigastric in nature and similar to the pain she has had in the past. It should be noted t hat on December 14 of this year, she underwent ERCP and sphincterotomy for this issue. She has also had multiple other evaluations including EGD, HIDA scan, abdominal CT, and even a cardiac workup; all o f which have been relatively unremarkable other than possible sphincter of Oddi dysfunction and mild gastritis and esophagitis. She has no other complaints other than concerns that we will be able to get her pain back under control. She has had no fevers or chills. She has chronic constipation bu t had her last bowel movement yesterday and states it was normal. She has not had any vomiting, tho ugh she does wretch intermittently and states that is normal for her. PAST MEDICAL HISTORY: Includes: 1. Chronic abdominal pain with diagnoses ranging from sphincter of Oddi dysfunction, gastritis, eso phagitis, and pancreatitis in the past. 2. Polyarteritis nodosum. 3. Fibromyalgia. 4. Chronic pain with continuous narcotic use and dependency. 5. Hypertension. 6. Reactive airway disease. 7. History of PE. 8. Peripheral neuropathy. 9. Hypothyroidism. 10. GERD. 11. Previous issue with shingles. 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 PAST SURGICAL HISTORY: Includes: 1. Hysterectomy. 2. Cholecystectomy. 3. Appendectomy. 4. Bilateral knee replacements. 5. Carpal tunnel release. 6. Angelica fundoplication. 7. Cataract surgery. 8. Sphincterotomy. FAMILY HISTORY: Multiple family members with early cardiac disease. SOCIAL HISTORY: The patient is a nondrinker and nonsmoker. She lives independently at [facility]. REVIEW OF SYSTEMS: 10-point review of systems obtained and negative, except as per HPI. MEDICATIONS: At home include: 1. Oxycodone. 2. Clonidine. 3. Amlodipine. 4. Zolpidem. 5. Carafate. 6. Xarelto. 7. Seroquel. 8. Lyrica. 9. MiraLAX. 10. Protonix. 11. Meloxicam. 12. Lisinopril. 13. Levothyroxine. 14. Gabapentin. ALLERGIES: Multiple and include penicillin and sulfa. Otherwise, please see EHR. PHYSICAL EXAM: VITAL SIGNS: BP 157/77, heart rate 68, respiratory rate 18, O2 sats are 93% on room air, temperature is 36.3. GENERAL APPEARANCE: This is a well-developed, aakx-nlepxssji-[id number] female. She is in no acute distress. She is lying in bed comfortably. EYES: Anicteric. ENT: Or opharynx clear. CARDIOVASCULAR: Regular rate and rhythm, no MRG. PULMONARY: CTA bilaterally to a nterior exam. Normal work of breathing. ABDOMEN: Soft, nontender. Bowel sounds are present. The re is no rebound or guarding. There are no masses appreciated. There is no bladder fullness or ten derness. EXTREMITIES: No clubbing, cyanosis, or edema. SKIN: Warm dry well perfused. NEURO/PSYC H: Oriented and appropriate, pleasant. CLINICAL DATA: Labs reviewed and significant for white blood cell count 5.3, hematocrit of 36.6, pl atelets of 184. Glucose of 115. LFTs are within normal limits. Lipase is 23. UA is completely un remarkable. Chest x-ray, personally reviewed and interpreted, shows chronic cardiomegaly without evidence of hea rt failure. There is evidence of COPD without pneumonia. ASSESSMENT/PLAN: This is a 76-year-old female, past medical history of chronic abdominal pain, pres enting with anxiety and hallucinations after receiving ketamine in the emergency department. 1. Acute encephalopathy. Again, this is characterized by severe anxiety and hallucinations that we re initiated by receiving ketamine. These symptoms have completely resolved and she seems to be trent k to her baseline. This is likely just an adverse effect of ketamine rather than allergy. 2. Chronic abdominal pain. Seems to be at her baseline. Again, she has had an extensive workup in the past including recent ERCP with sphincterotomy. Her abdominal exam is completely benign as are her laboratory studies. At this point, plan to monitor overnight and if no changes, would likely d ischarge her home on her usual medications to follow up with GI. 3. Sphincter of Oddi dysfunction. As per above, she is status post recent sphincterotomy with debr is removal. Unclear how this is related to her chronic issues. 4. Chronic pain with continuous narcotic use and dependency. She has multiple pain syndromes inclu ding fibromyalgia, polyarteritis nodosum, and chronic issues with sphincter of Oddi dysfunction vers us gastritis as listed above. She will be continued on her home pain regimen. 5. Peripheral neuropathy. She will be continued on her Lyrica. 6. Hypertension. This is reasonably controlled on her home regimen, which includes lisinopril and amlodipine. 7. Disposition. Observation status. I suspect she will need less than 48 hours stay for evaluatio n and management of above. 8. Patient is new to my care. Old records reviewed and summarized as per HPI and past medical hist ory. Care plan reviewed with the ER physician. /[id number]/MODL
[2016-12-31] MEDS: ACETAMINOPHEN 325 MG TAB PO PRN (17:07)
[2016-12-31] MEDS: SUCRALFATE 1 GM/10 ML UDCUP PO SCH ×2 (17:11→20:06)
[2016-12-31] MEDS ORDERED: SUCRALFATE 100 MG/ML UDSYR PO SCH (17:30)
[2016-12-31] MEDS: PANTOPRAZOLE SODIUM 40 MG TAB PO SCH (20:06)
[2016-12-31] MEDS ORDERED: amLODIPine BESYLATE 5 MG TAB PO SCH (21:00)
[2016-12-31] MEDS ORDERED: NON-FORMULARY NEW DRUG (Pregabalin [Lyrica] 200 MG) PO SCH (21:00)
[2016-12-31] MEDS ORDERED: QUEtiapine FUMARATE 100 MG TAB PO SCH (21:00)
[2016-12-31] MEDS ORDERED: MELOXICAM PO SCH (21:00)
[2016-12-31] MEDS ORDERED: NON-FORMULARY NEW DRUG (Meloxicam [Mobic 7.5 Mg] 7.5 MG) PO SCH (21:00)
[2016-12-31] MEDS ORDERED: PREGABALIN 100 MG CAP PO SCH (21:00)
[2016-12-31] MEDS ORDERED: GABAPENTIN 400 MG CAP PO SCH (21:00)
[2017-01-01 01:52] VITALS: TEMP 97.4
[2017-01-01] MEDS: ACETAMINOPHEN 325 MG TAB PO PRN (05:00)
[2017-01-01 05:37] LABS: % IMMATURE GRANULYOCYTES 0.2 % (0.0-1.1); ABSOLUTE IMMATURE GRANULOCYTES 0.01 10^3/uL (0.00-0.10); ADD DIFF? NO; ADD MORPH? NO; ADD SCAN? NO; ATYPICAL LYMPHOCYTE FLAG 20 (0-99); FRAGMENT RBC FLAG 0 (0-99); HEMATOCRIT 41.6 % (38.0-47.0); HEMOGLOBIN 13.4 g/dL (12.6-16.3); LEFT SHIFT FLG 0 (0-99); LIPEMIA HEMOLYSIS FLAG 80 (0-99); MEAN CELL HEMOGLOBIN 31.8 pg (27.9-34.1); MEAN CELL HEMOGLOBIN CONCENTR. 32.2 g/dL (32.4-36.7); MEAN CELL VOLUME 98.8 fL (81.5-99.8); MEAN PLATELET VOLUME 11.2 fL (8.7-11.7); PLATELET CLUMPS FLAG 0 (0-99); PLATELET COUNT 205 10^3/uL (150-400); RED BLOOD CELL COUNT 4.21 10^6/uL (4.18-5.33); RED CELL DISTRIBUTION WIDTH 13.9 % (11.5-15.2)
[2017-01-01 05:51] LABS: ANION GAP 9 mEq/L (8-16); CALCIUM 9.2 mg/dL (8.5-10.4); CARBON DIOXIDE 24 mEq/l (22-31); CHLORIDE 111 mEq/L (97-110); CREATININE 0.9 mg/dL (0.6-1.0); GLOMERULAR FILTRATION RATE > 60; GLUCOSE 83 mg/dL (70-100); POTASSIUM 3.8 mEq/L (3.5-5.2); SODIUM 144 mEq/L (134-144)
[2017-01-01] MEDS: oxyCODONE IR 5 MG TAB PO PRN (05:51)
[2017-01-01] MEDS ORDERED: LEVOTHYROXINE 125 MCG TAB PO SCH (06:00)
[2017-01-01] MEDS ORDERED: ENOXAPARIN 40 MG/0.4 ML SYR SC SCH (09:00)
[2017-01-01] MEDS ORDERED: LISINOPRIL 40 MG TAB PO SCH (09:00)
[2017-01-01] MEDS ORDERED: RIVAROXABAN 20 MG TAB PO SCH (09:00)
--- NOTE | 2017-01-01 09:24 | PDDCSUM ---
Discharge Summary Discharge Summary: Dates of service 12/31-01/01/17 Discharge dx: # anxiety/acute encephalopathy # chronic abdominal pain # hx of SOD # gastritis/esophagitis # chronic narcotic dependency # chronic medical issues: RAD, HOLGUIN, HTN, hx of PE, fibromyalgia, anxiety, depression, hypothyroid, gerd consultations/procedures: none hospital course by problem # anxiety/acute encephalopathy: patient had adverse reaction to ketamine with significant anxiety and brief hallucinations, improved rapidly # chronic abdominal pain: has been an ongoing issue, yesterday pain was worse and given ketamine in ER, today pain is stable and mild only, controlled on her usual regimen. Has had possible issues with SOD and recent ercp with sphinceterotomy. Has had extensive w/u in the last several months. At this point suspect functional abdominal pain/chronic pain syndrome # chronic narcotic use and dependency: continue home regimen # deconditioning: was recently at [facility] and preference would be for her to return there, will dc back to snf Meds: see EHR, no changes to home regimen >35 min spent in dc more than half in coordination of care
[2017-01-01 09:28] VITALS: BP 130/75; PULSE 61; RESP 16; O2SAT 98
--- NOTE | 2017-01-01 09:28 | PDIAF ---
- Diagnosis Code Status: Full Code - Medication Management Discharge Medications: Medications to Continue on Transfer Lisinopril [Zestril 40 mg (*)] 40 mg PO DAILY 06/13/14 [Last Taken 12/30/16] amLODIPine BESYLATE [Norvasc 5 mg (*)] 5 mg PO HS 06/13/14 [Last Taken 12/29/16] Pregabalin [LYRICA] 200 mg PO HS 08/24/16 [Last Taken 12/29/16] Zolpidem Tartrate [Ambien 10 mg] 10 mg PO HS PRN 08/24/16 [Last Taken 11/24/16] Gabapentin 400 mg PO HS 11/26/16 [Last Taken 12/29/16] Levothyroxine Sodium 125 mcg PO DAILY@06 11/26/16 [Last Taken 12/10/16] Pantoprazole Sodium [Protonix 40mg (*)] 40 mg PO BID #60 tab 12/04/16 [Last Taken 12/30/16 08:00] Polyethylene Glycol 3350 [Miralax 17 gm (*)] 17 gm PO DAILY PRN #30 pkt [Last Taken Unknown] Rivaroxaban [Xarelto] 20 mg PO DAILY #30 tab 12/04/16 [Last Taken 12/30/16] QUEtiapine FUMARATE [Seroquel 100 mg (*)] 100 mg PO HS 12/10/16 [Last Taken ] Sucralfate [Carafate Oral Liquid] 1,000 mg PO ACHS 12/10/16 [Last Taken 12/30/16 ] Meloxicam [Mobic 7.5 mg] 7.5 mg PO HS 12/31/16 [Last Taken 12/29/16] clonIDINE [Catapres (*)] 0.1 mg PO BID 12/31/16 [Last Taken 12/30/16 08:00] oxyCODONE IR [Oxycodone Ir (*)] 5 - 10 mg PO Q6 PRN 12/31/16 [Last Taken 06:00] Discharge Medications: Refer to the Discharge Home Medication list for PRN reason. - Orders Services needed: Registered Nurse, Certified [employer], Physical Therapy, Occupational Therapy Diet Recommendation: no restrictions on diet - Follow Up Care Current Providers and Referrals: Soumya Jimenez MD [Primary Care Provider] - As per Instructions
[2017-01-01] MEDS: NS 1,000 ML IV SCH (09:57)
[2017-01-01] MEDS: PANTOPRAZOLE SODIUM 40 MG TAB PO SCH (09:58)
[2017-01-01] MEDS: SUCRALFATE 1 GM/10 ML UDCUP PO SCH ×2 (09:58→13:37)
== END 2017-01-01 13:43 ==
LOC: F3E 12:22
PROVIDERS: ADMIT Internal Medicine; ATTEND Internal Medicine
DX: G92 Toxic encephalopathy (principal); T41.295A Adverse effect of other general anesthetics, initial encounter; K83.8 Other specified diseases of biliary tract; I10 Essential (primary) hypertension; G62.9 Polyneuropathy, unspecified
CPT/HCPCS: 71020; 97162; G0378; G8978; G8979; J2405; J3010; 96365

== ENCOUNTER → 2018-09-13 | Outpatient (CLI) | payer OTHER, MEDICAID | LOC: FIMAGING 15:56 | PROVIDERS: ATTEND Emergency Medicine | DX: R05 Cough (principal); R53.83 Other fatigue; R91.8 Other nonspecific abnormal finding of lung field; J84.9 Interstitial pulmonary disease, unspecified ==